=== PATIENT | male | born 1950 | race Caucasian/White ===

== ENCOUNTER 2018-11-16 06:00 | Outpatient (RCR) | payer MEDICARE, OTHER, SELFPAY | END 2018-12-15 | LOC: SPT 06:00 | PROVIDERS: Family Provider Family Medicine; Visit Provider Student in an Organized Health Care Education/Training Program | DX: Z47.1 Aftercare following joint replacement surgery (principal); Z96.653 Presence of artificial knee joint, bilateral | CPT/HCPCS: 97110 ×12; 97124 ==

== ENCOUNTER 2019-06-08 17:39 | Outpatient (CLI) | payer MEDICARE, OTHER, SELFPAY ==
[2019-06-08 18:47] LABS: Basophils % 0.5 %; Eosinophils # 0.1 10^3/uL (0.0-0.8); Eosinophils % 1.3 %; Hemoglobin 12.2 g/dL (11.7-16.6); Lymphocytes # 0.5 10^3/uL (0.8-4.8); Lymphocytes % 5.8 %; Mean Corpuscular Hemoglobin 32.4 pg (28.0-34.0); Mean Corpuscular Volume 98.1 fL (80-94); Mean Platelet Volume 11.6 fL (7.4-10.4); Monocytes % 12.5 %; Neutrophils # 5.8 10^3/uL (1.8-7.7); Neutrophils % 73.4 %; Nucleated Red Blood Cells % 0 %; Platelet Count 209 10^3/cmm (130-400); Red Blood Count 3.77 10^6/uL (4.1-5.3); Red Cell Distribution Width 14.1 % (12.1-15.1); White Blood Count 7.9 10^3/uL (4.0-10.0)
[2019-06-08 19:21] LABS: Albumin Level 3.8 g/dL (3.5-5.2); Blood Urea Nitrogen 14 mg/dL (8-23); Calcium 9.8 mg/dL (8.5-10.5); Carbon Dioxide 24 mmol/L (22-29); Chloride 102 mmol/L (98-107); Glomerular Filtration Rate 83.7 mL/min (90-130); Glucose 61 mg/dL (65-115); Magnesium 1.8 mg/dL (1.7-2.3); Sodium 137 mmol/L (136-145)
[2019-06-08 20:19] LABS: Slide Review Slide Review Perform
[2019-06-08 20:22] LABS: Absolute Eosinophils 0.2 10^3/cmm (0.0-0.7); Absolute Segmented Neutrophil 5.9 10/cmm (1.6-7.1); Band Neutrophils Absolute 0.2 10^3/cmm (0.0-1.2); Basophils Absolute 0.1 10^3/cmm (0.0-0.2); Eosinophils 3 %; Lymphocytes 9 %; Monocytes Absolute 0.5 10^3/cmm (0.1-0.6); Segmented Neutrophils 75 %; Total Cells Counted 100 (0-100)
[2019-06-08 20:23] LABS: Anisocytosis 1+; Macrocytosis Trace; Platelet Estimate Normal (Normal); Poikilocytosis 1+
== END 2019-06-08 17:40 | disposition home or self-care (01) ==
LOC: LAB 17:50
PROVIDERS: Family Provider Family Medicine; PCP Family Medicine; Visit Provider Nurse Practitioner Acute Care
DX: N18.4 Chronic kidney disease, stage 4 (severe) (principal)
CPT/HCPCS: 80069; 80197; 83735; 85007; 85025

== ENCOUNTER 2019-06-11 14:23 | Outpatient (CLI) | payer MEDICARE, OTHER, SELFPAY ==
[2019-06-11 15:19] LABS: Albumin Level 3.9 g/dL (3.5-5.2); Anion Gap 22.6 (5-19); Blood Urea Nitrogen 14 mg/dL (8-23); Calcium 9.8 mg/dL (8.5-10.5); Carbon Dioxide 22 mmol/L (22-29); Chloride 100 mmol/L (98-107); Glomerular Filtration Rate 66.4 mL/min (90-130); Glucose 56 mg/dL (65-115); Magnesium 1.7 mg/dL (1.7-2.3); Phosphorus 3.3 mg/dL (2.5-4.5); Potassium 5.6 mmol/L (3.5-5.1); Sodium 139 mmol/L (136-145)
== END 2019-06-11 14:24 | disposition home or self-care (01) ==
LOC: LAB 14:24
PROVIDERS: Family Provider Family Medicine; PCP Family Medicine; Visit Provider Family Medicine
DX: Z94.0 Kidney transplant status (principal); N18.4 Chronic kidney disease, stage 4 (severe)
CPT/HCPCS: 80069; 83735; 85025

== ENCOUNTER 2019-06-18 10:11 | Outpatient (CLI) | payer MEDICARE, OTHER, SELFPAY ==
[2019-06-18 11:10] LABS: Albumin Level 4.1 g/dL (3.5-5.2); Anion Gap 13.9 (5-19); Blood Urea Nitrogen 15 mg/dL (8-23); Calcium 10.2 mg/dL (8.5-10.5); Carbon Dioxide 26 mmol/L (22-29); Chloride 104 mmol/L (98-107); Glomerular Filtration Rate 74.1 mL/min (90-130); Glucose 99 mg/dL (65-115); Magnesium 1.9 mg/dL (1.7-2.3); Phosphorus 1.5 mg/dL (2.5-4.5); Potassium 4.9 mmol/L (3.5-5.1); Sodium 139 mmol/L (136-145)
[2019-06-18 17:42] LABS: Basophils % 0.3 %; Eosinophils % 0.1 %; Hematocrit 36.9 % (42.0-52.0); Lymphocytes # 0.2 10^3/uL (0.8-4.8); Lymphocytes % 1.9 %; Mean Corpuscular HGB Conc 32.5 g/dL (30.0-36.0); Mean Corpuscular Hemoglobin 32.4 pg (28.0-34.0); Mean Corpuscular Volume 99.7 fL (80-94); Mean Platelet Volume 10.5 fL (7.4-10.4); Monocytes # 0.4 10^3/uL (0.2-0.9); Monocytes % 3.3 %; Neutrophils # 11.7 10^3/uL (1.8-7.7); Nucleated Red Blood Cells % 0 %; Platelet Count 246 10^3/cmm (130-400); White Blood Count 12.6 10^3/uL (4.0-10.0)
== END 2019-06-18 10:12 | disposition home or self-care (01) ==
LOC: LAB 10:15
PROVIDERS: Family Provider Family Medicine; PCP Family Medicine; Visit Provider Transplant Surgery
DX: Z94.0 Kidney transplant status (principal)
CPT/HCPCS: 80069; 80197; 83735; 85025

== ENCOUNTER 2019-06-22 12:19 | Outpatient (CLI) | payer MEDICARE, OTHER, SELFPAY ==
[2019-06-22 12:36] LABS: Basophils % 0.6 %; Eosinophils # 0.1 10^3/uL (0.0-0.8); Eosinophils % 1.2 %; Hematocrit 39.6 % (42.0-52.0); Hemoglobin 12.7 g/dL (11.7-16.6); Lymphocytes # 0.7 10^3/uL (0.8-4.8); Lymphocytes % 10.1 %; Mean Corpuscular HGB Conc 32.1 g/dL (30.0-36.0); Mean Corpuscular Hemoglobin 32.9 pg (28.0-34.0); Mean Corpuscular Volume 102.6 fL (80-94); Mean Platelet Volume 10.6 fL (7.4-10.4); Monocytes # 0.7 10^3/uL (0.2-0.9); Neutrophils # 5.1 10^3/uL (1.8-7.7); Neutrophils % 75.5 %; Nucleated Red Blood Cells % 0 %; Platelet Count 218 10^3/cmm (130-400); Red Blood Count 3.86 10^6/uL (4.1-5.3); Red Cell Distribution Width 15.7 % (12.1-15.1); White Blood Count 6.7 10^3/uL (4.0-10.0)
[2019-06-22 12:59] LABS: Anion Gap 15.7 (5-19); Blood Urea Nitrogen 16 mg/dL (8-23); Calcium 10.2 mg/dL (8.5-10.5); Carbon Dioxide 25 mmol/L (22-29); Chloride 104 mmol/L (98-107); Glucose 88 mg/dL (65-115); Magnesium 1.9 mg/dL (1.7-2.3); Phosphorus 1.6 mg/dL (2.5-4.5); Potassium 4.7 mmol/L (3.5-5.1); Sodium 140 mmol/L (136-145)
== END 2019-06-22 12:20 | disposition home or self-care (01) ==
LOC: LAB 12:23
PROVIDERS: Family Provider Family Medicine; PCP Family Medicine; Visit Provider Family Medicine
DX: Z79.899 Other long term (current) drug therapy (principal)
CPT/HCPCS: 80069; 80197; 83735; 85025

== ENCOUNTER → 2019-09-29 09:05 | Outpatient (BNVA) | payer MEDICARE, OTHER, SELFPAY | PROVIDERS: Family Provider Family Medicine; PCP Family Medicine; Visit Provider Dermatology | DX: L82.1 Other seborrheic keratosis (principal); S90.229A Contusion of unspecified lesser toe(s) with damage to nail, initial encounter; X58.XXXA Exposure to other specified factors, initial encounter; L59.0 Erythema ab igne [dermatitis ab igne]; D22.9 Melanocytic nevi, unspecified; L57.0 Actinic keratosis; Z92.25 Personal history of immunosuppression therapy; Z12.83 Encounter for screening for malignant neoplasm of skin | CPT/HCPCS: 17000; 17003; 99203 ==

== ENCOUNTER 2019-12-14 08:28 | Outpatient (RCR) | payer MEDICARE, OTHER, SELFPAY ==
[2019-12-14 09:53] LABS: Basophils % 0.7 %; Eosinophils # 0.1 10^3/uL (0.0-0.8); Eosinophils % 1.3 %; Hematocrit 47.7 % (42.0-52.0); Hemoglobin 15.4 g/dL (11.7-16.6); Lymphocytes # 0.9 10^3/uL (0.8-4.8); Lymphocytes % 16.8 %; Mean Corpuscular HGB Conc 32.3 g/dL (30.0-36.0); Mean Corpuscular Hemoglobin 31.8 pg (28.0-34.0); Mean Corpuscular Volume 98.4 fL (80-94); Mean Platelet Volume 10.1 fL (7.4-10.4); Neutrophils # 3.39 10^3/uL (1.8-7.7); Neutrophils % 62.5 %; Nucleated Red Blood Cells % 0 %; Platelet Count 209 10^3/cmm (130-400); Red Blood Count 4.85 10^6/uL (4.1-5.3); Red Cell Distribution Width 12.8 % (12.1-15.1); White Blood Count 5.4 10^3/uL (4.0-10.0)
[2019-12-14 10:31] LABS: Alanine Aminotransferase 31 U/L (0-41); Albumin Level 3.9 g/dL (3.5-5.2); Alkaline Phosphatase 113 IU/L (40-130); Anion Gap 12.2 (5-19); Aspartate Amino Transferase 38 U/L (0-40); Blood Urea Nitrogen 21 mg/dL (8-23); Calcium 9.7 mg/dL (8.5-10.5); Carbon Dioxide 24 mmol/L (22-29); Chloride 107 mmol/L (98-107); Cholesterol 139 mg/dL (0-200); Globulin 1.9 g/dL (1.3-4.6); Glomerular Filtration Rate 95.8 mL/min (90-130); Glucose 104 mg/dL (65-115); HDL Cholesterol 48 mg/dL (60-100); LDL Cholesterol Calculated 69 mg/dL (50-129); LDL HDL Ratio 1.44 RATIO (0.00-3.22); Magnesium 1.8 mg/dL (1.7-2.3); Osmolality Calculated 291 mOsm/kg (285-295); Phosphorus 2.9 mg/dL (2.5-4.5); Potassium 4.2 mmol/L (3.5-5.1); Sodium 139 mmol/L (136-145); Total Bilirubin 0.4 mg/dL (0.15-1.2); Total Protein 5.8 g/dL (6.6-8.7); Triglycerides 111 mg/dL (0-150)
[2019-12-17 09:47] LABS: BK VIRUS DNA, QN PCR DETECTED <500 copies/mL; SOURCE PLASMA
== END 2019-12-16 23:59 | disposition home or self-care (01) ==
LOC: LAB 08:28
PROVIDERS: PCP Family Medicine; Visit Provider Family Medicine
DX: Z94.0 Kidney transplant status (principal); Z79.899 Other long term (current) drug therapy; E78.5 Hyperlipidemia, unspecified
CPT/HCPCS: 36415; 80053; 80061; 80069; 80197; 83735; 85025; 87798

== ENCOUNTER 2020-01-11 08:15 | Outpatient (RCR) | payer MEDICARE, OTHER, SELFPAY ==
[2019-12-28 09:15] LABS: Basophils % 0.2 %; Eosinophils # 0.1 10^3/uL (0.0-0.8); Eosinophils % 0.7 %; Hematocrit 48.7 % (42.0-52.0); Hemoglobin 15.6 g/dL (11.7-16.6); Lymphocytes # 0.9 10^3/uL (0.8-4.8); Lymphocytes % 10.1 %; Mean Platelet Volume 10.1 fL (7.4-10.4); Monocytes # 1.1 10^3/uL (0.2-0.9); Neutrophils # 6.97 10^3/uL (1.8-7.7); Neutrophils % 76.6 %; Nucleated Red Blood Cells % 0 %; Platelet Count 215 10^3/cmm (130-400); Red Blood Count 4.87 10^6/uL (4.1-5.3); Red Cell Distribution Width 12.9 % (12.1-15.1); White Blood Count 9.1 10^3/uL (4.0-10.0)
[2019-12-28 09:35] LABS: Albumin Level 3.8 g/dL (3.5-5.2); Anion Gap 14.6 (5-19); Blood Urea Nitrogen 23 mg/dL (8-23); Carbon Dioxide 25 mmol/L (22-29); Chloride 105 mmol/L (98-107); Glomerular Filtration Rate 83.7 mL/min (90-130); Glucose 106 mg/dL (65-115); Magnesium 1.8 mg/dL (1.7-2.3); Phosphorus 2.6 mg/dL (2.5-4.5); Potassium 4.6 mmol/L (3.5-5.1); Sodium 140 mmol/L (136-145)
[2020-01-11 08:53] LABS: Basophils % 0.4 %; Eosinophils # 0.1 10^3/uL (0.0-0.8); Eosinophils % 1.2 %; Hematocrit 50.3 % (42.0-52.0); Hemoglobin 16.2 g/dL (11.7-16.6); Lymphocytes % 14.7 %; Mean Corpuscular HGB Conc 32.2 g/dL (30.0-36.0); Mean Corpuscular Hemoglobin 31.8 pg (28.0-34.0); Mean Corpuscular Volume 98.6 fL (80-94); Mean Platelet Volume 11.6 fL (7.4-10.4); Monocytes # 0.8 10^3/uL (0.2-0.9); Neutrophils # 4.81 10^3/uL (1.8-7.7); Neutrophils % 71.4 %; Nucleated Red Blood Cells % 0 %; Platelet Count 155 10^3/cmm (130-400); Red Cell Distribution Width 12.4 % (12.1-15.1); White Blood Count 6.7 10^3/uL (4.0-10.0)
[2020-01-11 09:11] LABS: Albumin Level 3.9 g/dL (3.5-5.2); Anion Gap 9.4 (5-19); Blood Urea Nitrogen 16 mg/dL (8-23); Calcium 9.9 mg/dL (8.5-10.5); Carbon Dioxide 29 mmol/L (22-29); Chloride 105 mmol/L (98-107); Glomerular Filtration Rate 95.8 mL/min (90-130); Glucose 104 mg/dL (65-115); Magnesium 1.9 mg/dL (1.7-2.3); Phosphorus 2.5 mg/dL (2.5-4.5); Potassium 4.4 mmol/L (3.5-5.1); Sodium 139 mmol/L (136-145)
[2020-01-16 00:33] LABS: BK VIRUS DNA, QN PCR DETECTED <500 copies/mL; SOURCE PLASMA
== END 2020-01-16 23:59 | disposition home or self-care (01) ==
LOC: LAB 08:15
PROVIDERS: PCP Family Medicine; Visit Provider Internal Medicine Nephrology
DX: Z94.0 Kidney transplant status (principal); Z79.899 Other long term (current) drug therapy; Z48.22 Encounter for aftercare following kidney transplant
CPT/HCPCS: 36415; 80069; 80197; 83735; 85025; 87798

== ENCOUNTER 2020-02-08 08:20 | Outpatient (RCR) | payer MEDICARE, OTHER, SELFPAY ==
[2020-01-25 08:39] LABS: Basophils % 0.4 %; Eosinophils # 0.1 10^3/uL (0.0-0.8); Eosinophils % 1.1 %; Hematocrit 48.6 % (42.0-52.0); Hemoglobin 15.3 g/dL (11.7-16.6); Lymphocytes # 0.9 10^3/uL (0.8-4.8); Lymphocytes % 16.1 %; Mean Corpuscular HGB Conc 31.5 g/dL (30.0-36.0); Mean Corpuscular Hemoglobin 31.3 pg (28.0-34.0); Mean Corpuscular Volume 99.4 fL (80-94); Mean Platelet Volume 9.5 fL (7.4-10.4); Neutrophils # 3.66 10^3/uL (1.8-7.7); Neutrophils % 64.7 %; Nucleated Red Blood Cells % 0 %; Platelet Count 231 10^3/cmm (130-400); Red Blood Count 4.89 10^6/uL (4.1-5.3); Red Cell Distribution Width 12.5 % (12.1-15.1); White Blood Count 5.7 10^3/uL (4.0-10.0)
[2020-01-25 09:14] LABS: Albumin Level 3.9 g/dL (3.5-5.2); Anion Gap 12.5 (5-19); Blood Urea Nitrogen 30 mg/dL (8-23); Calcium 9.2 mg/dL (8.5-10.5); Carbon Dioxide 25 mmol/L (22-29); Chloride 110 mmol/L (98-107); Glomerular Filtration Rate 111.8 mL/min (90-130); Glucose 90 mg/dL (65-115); Magnesium 1.8 mg/dL (1.7-2.3); Potassium 4.5 mmol/L (3.5-5.1); Sodium 143 mmol/L (136-145)
[2020-02-08 08:56] LABS: Basophils % 0.5 %; Eosinophils # 0.1 10^3/uL (0.0-0.8); Eosinophils % 1.4 %; Hematocrit 50.6 % (42.0-52.0); Hemoglobin 16.2 g/dL (11.7-16.6); Lymphocytes % 17.1 %; Mean Corpuscular Hemoglobin 31.3 pg (28.0-34.0); Mean Corpuscular Volume 97.9 fL (80-94); Mean Platelet Volume 9.7 fL (7.4-10.4); Monocytes # 0.9 10^3/uL (0.2-0.9); Monocytes % 16.5 %; Neutrophils # 3.61 10^3/uL (1.8-7.7); Neutrophils % 63.6 %; Nucleated Red Blood Cells % 0 %; Platelet Count 228 10^3/cmm (130-400); Red Blood Count 5.17 10^6/uL (4.1-5.3); Red Cell Distribution Width 12.5 % (12.1-15.1); White Blood Count 5.7 10^3/uL (4.0-10.0)
[2020-02-08 08:58] LABS: Albumin Level 3.9 g/dL (3.5-5.2); Anion Gap 14.4 (5-19); Blood Urea Nitrogen 17 mg/dL (8-23); Calcium 9.6 mg/dL (8.5-10.5); Carbon Dioxide 27 mmol/L (22-29); Chloride 105 mmol/L (98-107); Glomerular Filtration Rate 95.8 mL/min (90-130); Glucose 94 mg/dL (65-115); Magnesium 1.7 mg/dL (1.7-2.3); Phosphorus 3.2 mg/dL (2.5-4.5); Potassium 4.4 mmol/L (3.5-5.1); Sodium 142 mmol/L (136-145)
[2020-02-11 13:03] LABS: BK VIRUS DNA, QN PCR NO DNA DETECTED copies/mL; SOURCE PLASMA
== END 2020-02-15 23:59 | disposition home or self-care (01) ==
LOC: LAB 08:20
PROVIDERS: PCP Family Medicine; Visit Provider Internal Medicine Nephrology
DX: N18.9 Chronic kidney disease, unspecified (principal); M10.9 Gout, unspecified; Z94.0 Kidney transplant status; Z79.899 Other long term (current) drug therapy
CPT/HCPCS: 36415; 80069; 80197; 83735; 85025; 87798

== ENCOUNTER 2020-03-07 08:10 | Outpatient (RCR) | payer MEDICARE, OTHER, SELFPAY ==
[2020-02-22 08:55] LABS: Basophils % 0.4 %; Eosinophils # 0.1 10^3/uL (0.0-0.8); Eosinophils % 0.9 %; Hematocrit 48.2 % (42.0-52.0); Hemoglobin 15.4 g/dL (11.7-16.6); Lymphocytes # 0.9 10^3/uL (0.8-4.8); Lymphocytes % 16.6 %; Mean Corpuscular Hemoglobin 31.2 pg (28.0-34.0); Mean Corpuscular Volume 97.6 fL (80-94); Mean Platelet Volume 9.7 fL (7.4-10.4); Monocytes % 18.2 %; Neutrophils # 3.42 10^3/uL (1.8-7.7); Nucleated Red Blood Cells % 0 %; Platelet Count 218 10^3/cmm (130-400); Red Blood Count 4.94 10^6/uL (4.1-5.3); Red Cell Distribution Width 12.7 % (12.1-15.1); White Blood Count 5.4 10^3/uL (4.0-10.0)
[2020-02-22 09:17] LABS: Carbon Dioxide 27 mmol/L (22-29); Chloride 105 mmol/L (98-107); Potassium 4.6 mmol/L (3.5-5.1); Sodium 140 mmol/L (136-145)
[2020-02-22 09:18] LABS: Albumin Level 3.9 g/dL (3.5-5.2); Anion Gap 12.6 (5-19); Blood Urea Nitrogen 20 mg/dL (8-23); Calcium 9.3 mg/dL (8.5-10.5); Glomerular Filtration Rate 95.8 mL/min (90-130); Glucose 101 mg/dL (65-115); Magnesium 1.7 mg/dL (1.7-2.3); Phosphorus 2.3 mg/dL (2.5-4.5)
[2020-03-07 09:45] LABS: Basophils % 0.5 %; Eosinophils # 0.1 10^3/uL (0.0-0.8); Eosinophils % 1.1 %; Hemoglobin 15.7 g/dL (11.7-16.6); Lymphocytes # 0.9 10^3/uL (0.8-4.8); Lymphocytes % 14.5 %; Mean Corpuscular Hemoglobin 31.4 pg (28.0-34.0); Mean Platelet Volume 10.1 fL (7.4-10.4); Monocytes % 15.3 %; Neutrophils # 4.32 10^3/uL (1.8-7.7); Neutrophils % 67.2 %; Nucleated Red Blood Cells % 0 %; Platelet Count 221 10^3/cmm (130-400); Red Cell Distribution Width 12.6 % (12.1-15.1); White Blood Count 6.4 10^3/uL (4.0-10.0)
[2020-03-07 10:16] LABS: Alanine Aminotransferase 37 U/L (0-41); Albumin Level 3.8 g/dL (3.5-5.2); Alkaline Phosphatase 115 IU/L (40-130); Anion Gap 12.2 (5-19); Aspartate Amino Transferase 30 U/L (0-40); Blood Urea Nitrogen 20 mg/dL (8-23); Calcium 9.4 mg/dL (8.5-10.5); Carbon Dioxide 27 mmol/L (22-29); Chloride 105 mmol/L (98-107); Chol HDL Ratio 2.57 mg/dL (1.0-5.00); Cholesterol 131 mg/dL (0-200); Globulin 1.7 g/dL (1.3-4.6); Glomerular Filtration Rate 83.4 mL/min (90-130); Glucose 82 mg/dL (65-115); HDL Cholesterol 51 mg/dL (60-100); LDL Cholesterol Calculated 58 mg/dL (50-129); LDL HDL Ratio 1.14 RATIO (0.00-3.22); Magnesium 1.6 mg/dL (1.7-2.3); Osmolality Calculated 292 mOsm/kg (285-295); Phosphorus 3.3 mg/dL (2.5-4.5); Potassium 4.2 mmol/L (3.5-5.1); Sodium 140 mmol/L (136-145); Total Bilirubin 0.3 mg/dL (0.15-1.2); Total Protein 5.5 g/dL (6.6-8.7); Triglycerides 111 mg/dL (0-150)
[2020-03-11 11:13] LABS: BK VIRUS DNA, QN PCR NO DNA DETECTED copies/mL; SOURCE BLOOD
== END 2020-03-17 23:59 | disposition home or self-care (01) ==
LOC: LAB 08:10
PROVIDERS: Dermatology; PCP Family Medicine; Visit Provider Internal Medicine Nephrology
DX: Z94.0 Kidney transplant status (principal); E78.5 Hyperlipidemia, unspecified; Z79.899 Other long term (current) drug therapy
CPT/HCPCS: 80053; 80061; 80069; 80197; 83735; 85025; 87798

== ENCOUNTER 2020-04-04 09:28 | Outpatient (RCR) | payer MEDICARE, OTHER, SELFPAY ==
[2020-03-21 10:02] LABS: Basophils % 0.6 %; Eosinophils # 0.1 10^3/uL (0.0-0.8); Hematocrit 51.1 % (42.0-52.0); Hemoglobin 16.2 g/dL (11.7-16.6); Lymphocytes # 0.9 10^3/uL (0.8-4.8); Lymphocytes % 18.4 %; Mean Corpuscular HGB Conc 31.7 g/dL (30.0-36.0); Mean Corpuscular Hemoglobin 31.5 pg (28.0-34.0); Mean Corpuscular Volume 99.2 fL (80-94); Mean Platelet Volume 9.9 fL (7.4-10.4); Monocytes % 19.9 %; Neutrophils # 2.88 10^3/uL (1.8-7.7); Neutrophils % 59.1 %; Nucleated Red Blood Cells % 0 %; Platelet Count 225 10^3/cmm (130-400); Red Blood Count 5.15 10^6/uL (4.1-5.3); Red Cell Distribution Width 12.4 % (12.1-15.1); White Blood Count 4.9 10^3/uL (4.0-10.0)
[2020-03-21 11:14] LABS: Alanine Aminotransferase 37 U/L (0-41); Albumin Level 3.9 g/dL (3.5-5.2); Alkaline Phosphatase 115 IU/L (40-130); Anion Gap 13.9 (5-19); Aspartate Amino Transferase 33 U/L (0-40); Blood Urea Nitrogen 30 mg/dL (8-23); Calcium 9.9 mg/dL (8.5-10.5); Carbon Dioxide 28 mmol/L (22-29); Chloride 106 mmol/L (98-107); Cholesterol 139 mg/dL (0-200); Globulin 2.1 g/dL (1.3-4.6); Glomerular Filtration Rate 73.9 mL/min (90-130); Glucose 88 mg/dL (65-115); HDL Cholesterol 48 mg/dL (60-100); LDL Cholesterol Calculated 69 mg/dL (50-129); LDL HDL Ratio 1.44 RATIO (0.00-3.22); Magnesium 1.7 mg/dL (1.7-2.3); Osmolality Calculated 302 mOsm/kg (285-295); Phosphorus 3.8 mg/dL (2.5-4.5); Potassium 4.9 mmol/L (3.5-5.1); Sodium 143 mmol/L (136-145); Total Bilirubin 0.4 mg/dL (0.15-1.2); Triglycerides 108 mg/dL (0-150)
[2020-04-04 10:18] LABS: Basophils % 0.4 %; Eosinophils # 0.1 10^3/uL (0.0-0.8); Eosinophils % 0.7 %; Hematocrit 49.9 % (42.0-52.0); Hemoglobin 16.1 g/dL (11.7-16.6); Lymphocytes # 0.9 10^3/uL (0.8-4.8); Lymphocytes % 9.5 %; Mean Corpuscular HGB Conc 32.3 g/dL (30.0-36.0); Mean Corpuscular Hemoglobin 31.6 pg (28.0-34.0); Mean Platelet Volume 10.1 fL (7.4-10.4); Monocytes # 1.2 10^3/uL (0.2-0.9); Neutrophils # 7.24 10^3/uL (1.8-7.7); Neutrophils % 76.1 %; Nucleated Red Blood Cells % 0 %; Platelet Count 217 10^3/cmm (130-400); Red Blood Count 5.09 10^6/uL (4.1-5.3); Red Cell Distribution Width 12.3 % (12.1-15.1); White Blood Count 9.5 10^3/uL (4.0-10.0)
[2020-04-04 11:12] LABS: Alanine Aminotransferase 31 U/L (0-41); Albumin Level 3.9 g/dL (3.5-5.2); Alkaline Phosphatase 110 IU/L (40-130); Anion Gap 11.4 (5-19); Aspartate Amino Transferase 32 U/L (0-40); Blood Urea Nitrogen 17 mg/dL (8-23); Calcium 9.7 mg/dL (8.5-10.5); Carbon Dioxide 30 mmol/L (22-29); Chloride 100 mmol/L (98-107); Globulin 1.9 g/dL (1.3-4.6); Glomerular Filtration Rate 73.9 mL/min (90-130); Glucose 89 mg/dL (65-115); Magnesium 1.7 mg/dL (1.7-2.3); Osmolality Calculated 285 mOsm/kg (285-295); Phosphorus 2.6 mg/dL (2.5-4.5); Potassium 4.4 mmol/L (3.5-5.1); Sodium 137 mmol/L (136-145); Total Bilirubin 0.6 mg/dL (0.15-1.2); Total Protein 5.8 g/dL (6.6-8.7)
== END 2020-04-17 23:59 | disposition home or self-care (01) ==
LOC: LAB 09:28
PROVIDERS: Internal Medicine Nephrology; PCP Family Medicine; Visit Provider Internal Medicine Nephrology
DX: E78.5 Hyperlipidemia, unspecified (principal); I10 Essential (primary) hypertension; Z94.0 Kidney transplant status; Z79.899 Other long term (current) drug therapy
CPT/HCPCS: 36415; 80053; 80061; 80069; 80197; 83735; 85025

== ENCOUNTER 2020-05-10 07:15 | Outpatient (RCR) | payer MEDICARE, OTHER, SELFPAY ==
[2020-04-18 09:12] LABS: Basophils % 0.8 %; Eosinophils # 0.1 10^3/uL (0.0-0.8); Eosinophils % 1.8 %; Hematocrit 48.3 % (42.0-52.0); Hemoglobin 15.9 g/dL (11.7-16.6); Lymphocytes # 0.9 10^3/uL (0.8-4.8); Lymphocytes % 17.2 %; Mean Corpuscular HGB Conc 32.9 g/dL (30.0-36.0); Mean Corpuscular Hemoglobin 32.3 pg (28.0-34.0); Mean Corpuscular Volume 98.2 fL (80-94); Monocytes # 0.8 10^3/uL (0.2-0.9); Monocytes % 16.2 %; Neutrophils # 3.24 10^3/uL (1.8-7.7); Neutrophils % 63.4 %; Nucleated Red Blood Cells % 0 %; Platelet Count 225 10^3/cmm (130-400); Red Blood Count 4.92 10^6/uL (4.1-5.3); Red Cell Distribution Width 12.8 % (12.1-15.1); White Blood Count 5.1 10^3/uL (4.0-10.0)
[2020-04-18 09:30] LABS: Albumin Level 3.9 g/dL (3.5-5.2); Anion Gap 9.7 (5-19); Blood Urea Nitrogen 12 mg/dL (8-23); Calcium 9.7 mg/dL (8.5-10.5); Carbon Dioxide 27 mmol/L (22-29); Chloride 108 mmol/L (98-107); Glomerular Filtration Rate 73.9 mL/min (90-130); Glucose 92 mg/dL (65-115); Magnesium 1.8 mg/dL (1.7-2.3); Potassium 4.7 mmol/L (3.5-5.1); Sodium 140 mmol/L (136-145)
[2020-04-18 10:20] LABS: Add Urine Culture? No; Bacteria Urine TRACE /hpf; Bilirubin Urine Neg (Negative); Blood Urine Neg (Negative); Glucose Urine UA Norm (Normal); Ketones Urine Negative (Negative); Leukocyte Esterase Urine Negative (Negative); Nitrate Urine Negative (Negative); Protein Urine Neg (Negative); Urine Appearance Clear (CLEAR); Urine Color Yellow (Yellow); Urobilinogen Urine Norm (Negative); pH Urine 5 (5-7)
[2020-04-22 15:38] LABS: BK VIRUS DNA, QN PCR NO DNA DETECTED copies/mL; SOURCE WHOLE BLOOD
[2020-05-10 11:04] LABS: Basophils % 0.5 %; Eosinophils # 0.1 10^3/uL (0.0-0.8); Eosinophils % 1.8 %; Hematocrit 52.3 % (42.0-52.0); Hemoglobin 16.7 g/dL (11.7-16.6); Lymphocytes # 0.9 10^3/uL (0.8-4.8); Lymphocytes % 16.7 %; Mean Corpuscular HGB Conc 31.9 g/dL (30.0-36.0); Mean Corpuscular Hemoglobin 32.2 pg (28.0-34.0); Mean Platelet Volume 10.3 fL (7.4-10.4); Monocytes # 0.9 10^3/uL (0.2-0.9); Monocytes % 15.8 %; Neutrophils # 3.62 10^3/uL (1.8-7.7); Neutrophils % 64.3 %; Nucleated Red Blood Cells % 0 %; Platelet Count 231 10^3/cmm (130-400); Red Blood Count 5.18 10^6/uL (4.1-5.3); Red Cell Distribution Width 13.2 % (12.1-15.1); White Blood Count 5.6 10^3/uL (4.0-10.0)
[2020-05-10 11:12] LABS: Bilirubin Urine Neg (Negative); Blood Urine Neg (Negative); Glucose Urine UA Norm (Normal); Ketones Urine Negative (Negative); Leukocyte Esterase Urine Negative (Negative); Nitrate Urine Negative (Negative); Protein Urine Neg (Negative); Specific Gravity, Urine 1.015 (1.005-1.030); Urine Appearance Clear (CLEAR); Urine Color Straw (Yellow); Urobilinogen Urine Norm (Negative); pH Urine 6.5 (5-7)
[2020-05-10 11:26] LABS: Add Urine Culture? No; Bacteria Urine TRACE /hpf; Squamous Epithelial Cell Urine 0-4 /hpf (0-5)
[2020-05-10 11:37] LABS: Anion Gap 11.9 (5-19); Blood Urea Nitrogen 24 mg/dL (8-23); Calcium 9.8 mg/dL (8.5-10.5); Carbon Dioxide 28 mmol/L (22-29); Chloride 106 mmol/L (98-107); Glomerular Filtration Rate 83.4 mL/min (90-130); Glucose 79 mg/dL (65-115); Magnesium 1.6 mg/dL (1.7-2.3); Phosphorus 3.2 mg/dL (2.5-4.5); Potassium 4.9 mmol/L (3.5-5.1); Sodium 141 mmol/L (136-145)
== END 2020-05-15 23:59 | disposition home or self-care (01) ==
LOC: LAB 07:15
PROVIDERS: PCP Family Medicine; Visit Provider Internal Medicine Nephrology
DX: E78.5 Hyperlipidemia, unspecified (principal); I10 Essential (primary) hypertension; Z94.0 Kidney transplant status; Z79.899 Other long term (current) drug therapy
CPT/HCPCS: 80069; 80197; 81001; 83735; 85025; 87086; 87798

== ENCOUNTER 2020-06-07 07:00 | Outpatient (RCR) | payer MEDICARE, OTHER, SELFPAY ==
[2020-05-24 10:01] LABS: Basophils # 0.1 10^3/uL (0.0-0.1); Basophils % 0.9 %; Eosinophils # 0.1 10^3/uL (0.0-0.8); Eosinophils % 1.3 %; Hematocrit 50.7 % (42.0-52.0); Hemoglobin 16.5 g/dL (11.7-16.6); Lymphocytes % 18.9 %; Mean Corpuscular HGB Conc 32.5 g/dL (30.0-36.0); Mean Corpuscular Hemoglobin 32.4 pg (28.0-34.0); Mean Corpuscular Volume 99.6 fL (80-94); Mean Platelet Volume 10.8 fL (7.4-10.4); Monocytes # 0.9 10^3/uL (0.2-0.9); Monocytes % 16.3 %; Neutrophils # 3.36 10^3/uL (1.8-7.7); Neutrophils % 61.5 %; Nucleated Red Blood Cells % 0 %; Platelet Count 204 10^3/cmm (130-400); Red Blood Count 5.09 10^6/uL (4.1-5.3); Red Cell Distribution Width 12.9 % (12.1-15.1); White Blood Count 5.5 10^3/uL (4.0-10.0)
[2020-05-24 10:28] LABS: Add Urine Culture? No; Bacteria Urine TRACE /hpf; Bilirubin Urine Neg (Negative); Blood Urine Neg (Negative); Glucose Urine UA Norm (Normal); Ketones Urine Negative (Negative); Leukocyte Esterase Urine Negative (Negative); Mucus Urine 1+ /hpf; Nitrate Urine Negative (Negative); Protein Urine Neg (Negative); Specific Gravity, Urine 1.015 (1.005-1.030); Squamous Epithelial Cell Urine RARE /hpf (0-5); Urine Appearance Clear (CLEAR); Urine Color Yellow (Yellow); Urobilinogen Urine Norm (Negative); pH Urine 5 (5-7)
[2020-05-24 10:31] LABS: Albumin Level 3.9 g/dL (3.5-5.2); Anion Gap 12.8 (5-19); Blood Urea Nitrogen 27 mg/dL (8-23); Calcium 9.8 mg/dL (8.5-10.5); Carbon Dioxide 26 mmol/L (22-29); Chloride 107 mmol/L (98-107); Glomerular Filtration Rate 73.9 mL/min (90-130); Glucose 83 mg/dL (65-115); Magnesium 1.6 mg/dL (1.7-2.3); Potassium 4.8 mmol/L (3.5-5.1); Sodium 141 mmol/L (136-145)
[2020-05-27 10:28] LABS: BK VIRUS DNA, QN PCR NO DNA DETECTED copies/mL; SOURCE PLASMA
[2020-06-07 10:05] LABS: Basophils % 0.5 %; Eosinophils # 0.1 10^3/uL (0.0-0.8); Eosinophils % 1.6 %; Hematocrit 50.1 % (42.0-52.0); Hemoglobin 16.3 g/dL (11.7-16.6); Lymphocytes # 0.8 10^3/uL (0.8-4.8); Lymphocytes % 13.1 %; Mean Corpuscular HGB Conc 32.5 g/dL (30.0-36.0); Mean Corpuscular Hemoglobin 32.3 pg (28.0-34.0); Mean Corpuscular Volume 99.4 fL (80-94); Mean Platelet Volume 10.3 fL (7.4-10.4); Monocytes % 17.2 %; Neutrophils # 3.83 10^3/uL (1.8-7.7); Neutrophils % 66.7 %; Nucleated Red Blood Cells % 0 %; Platelet Count 224 10^3/cmm (130-400); Red Blood Count 5.04 10^6/uL (4.1-5.3); Red Cell Distribution Width 13.1 % (12.1-15.1); White Blood Count 5.7 10^3/uL (4.0-10.0)
[2020-06-07 10:28] LABS: Alanine Aminotransferase 30 U/L (0-41); Albumin Level 3.6 g/dL (3.5-5.2); Alkaline Phosphatase 134 IU/L (40-130); Aspartate Amino Transferase 32 U/L (0-40); Blood Urea Nitrogen 27 mg/dL (8-23); Calcium 8.9 mg/dL (8.5-10.5); Carbon Dioxide 25 mmol/L (22-29); Chloride 107 mmol/L (98-107); Globulin 2.3 g/dL (1.3-4.6); Glomerular Filtration Rate 111.5 mL/min (90-130); Glucose 80 mg/dL (65-115); Lipase 77 U/L (13-60); Magnesium 1.9 mg/dL (1.7-2.3); Osmolality Calculated 292 mOsm/kg (285-295); Sodium 139 mmol/L (136-145); Total Bilirubin 0.2 mg/dL (0.15-1.2); Total Protein 5.9 g/dL (6.6-8.7)
[2020-06-08 15:43] LABS: Cholesterol 139 mg/dL (0-200); HDL Cholesterol 48 mg/dL (60-100); LDL Cholesterol Calculated 42 mg/dL (50-129); LDL HDL Ratio 0.88 RATIO (0.00-3.22); Triglycerides 245 mg/dL (0-150)
[2020-06-10 08:32] LABS: BK VIRUS DNA, QN PCR NO DNA DETECTED copies/mL; SOURCE PLASMA
== END 2020-06-15 23:59 | disposition home or self-care (01) ==
LOC: LAB 07:00
PROVIDERS: PCP Family Medicine; Visit Provider Internal Medicine Nephrology
DX: Z94.0 Kidney transplant status (principal); E78.5 Hyperlipidemia, unspecified; I10 Essential (primary) hypertension; Z79.899 Other long term (current) drug therapy
CPT/HCPCS: 80053; 80061; 80069; 80197; 81001; 83690; 83735; 85025; 87086; 87798

== ENCOUNTER 2020-06-15 12:40 | Emergency (ER) | payer MEDICARE, OTHER, SELFPAY ==
[2020-06-15 12:52] VITALS: BP 144/96; PULSE 80; RESP 16; TEMP 36.4; O2SAT 98; BMI 24.8
[2020-06-15 14:16] LABS: Add Urine Microscopic? NO
[2020-06-15 14:37] LABS: Urine Appearance Clear (CLEAR); Urine Color Yellow (Yellow)
[2020-06-15 14:38] LABS: Bilirubin Urine Neg (Negative); Blood Urine Neg (Negative); Glucose Urine UA Norm (Normal); Ketones Urine 1+ (Negative); Leukocyte Esterase Urine Negative (Negative); Nitrate Urine Negative (Negative); Protein Urine Neg (Negative); Specific Gravity, Urine 1.015 (1.005-1.030); Urobilinogen Urine Norm (Negative); pH Urine 5 (5-7)
[2020-06-15 15:00] VITALS: BP 123/85; PULSE 76; RESP 16; O2SAT 96
[2020-06-15 15:29] LABS: Basophils % 0.2 %; Eosinophils % 0.1 %; Hematocrit 51.3 % (42.0-52.0); Hemoglobin 16.9 g/dL (11.7-16.6); Lymphocytes # 0.7 10^3/uL (0.8-4.8); Lymphocytes % 8.2 %; Mean Corpuscular HGB Conc 32.9 g/dL (30.0-36.0); Mean Corpuscular Hemoglobin 32.9 pg (28.0-34.0); Mean Platelet Volume 9.3 fL (7.4-10.4); Monocytes # 1.1 10^3/uL (0.2-0.9); Monocytes % 12.1 %; Neutrophils # 6.93 10^3/uL (1.8-7.7); Neutrophils % 78.8 %; Nucleated Red Blood Cells % 0 %; Platelet Count 194 10^3/cmm (130-400); Red Blood Count 5.13 10^6/uL (4.1-5.3); Red Cell Distribution Width 12.4 % (12.1-15.1); White Blood Count 8.8 10^3/uL (4.0-10.0)
[2020-06-15] MEDS: sodium chloride 0.9% 1,000 ML 999 ML IV (15:36)
[2020-06-15 15:51] LABS: Partial Thromboplastin Time 25.1 SECONDS (23.9-36.7)
[2020-06-15 15:57] LABS: Alanine Aminotransferase 27 U/L (0-41); Albumin Level 3.9 g/dL (3.5-5.2); Alkaline Phosphatase 95 IU/L (40-130); Anion Gap 13.3 (5-19); Aspartate Amino Transferase 26 U/L (0-40); Blood Urea Nitrogen 22 mg/dL (8-23); Calcium 9.3 mg/dL (8.5-10.5); Carbon Dioxide 25 mmol/L (22-29); Chloride 104 mmol/L (98-107); Globulin 2.3 g/dL (1.3-4.6); Glomerular Filtration Rate 83.4 mL/min (90-130); Glucose 97 mg/dL (65-115); Lipase 47 U/L (13-60); Osmolality Calculated 289 mOsm/kg (285-295); Potassium 4.3 mmol/L (3.5-5.1); Sodium 138 mmol/L (136-145); Total Bilirubin 0.5 mg/dL (0.15-1.2); Total Protein 6.2 g/dL (6.6-8.7)
[2020-06-15 16:28] VITALS: BP 123/74; PULSE 66; RESP 16; O2SAT 96
--- NOTE | 2020-06-15 16:28 | PC.NURSE ---
patient denied any pain, stated felt good at this time.
--- NOTE | 2020-06-15 17:45 | ED_ITS ---
HPI - Nausea/Vomiting/Diarrhea General: Chief complaint: Nausea/Vomiting/Diarrhea Stated complaint: ABD PAIN Time Seen by Provider: 06/15/20 15:01 History of Present Illness: HPI Narrative: The patient is a 70-year-old male with past medical history of renal transplant approximately a year ago. He comes to the ER today complaining of nausea, vomiting, and diarrhea for the past 2 days. He says in the ER today he feels better and is not nauseous or having d iarrhea but he is having some abdominal cramping whenever he eats and drinks. He says he feels slightly dehydrated because he called someone who told him not to eat before he went to the ER. He has no abdominal pain, nausea, nor diarrhea in the ER right now. He admits whenever he did have diarrhea he had slight anal burning and he does have hemorrhoids which are known to cause burning with diar darryl for him. MD elicited complaint: nausea, vomiting and diarrhea Description of vomiting: food contents and watery Description of diarrhea: watery Associated nausea: Yes Location of pain: None Pain consistency: intermittent Severity: mild Quality: cramping Exacerbating factors: eating Relieving factors: none Associated symtoms: Reports no associated symptoms and nausea; Denies anxiety, change in vision, chest pain, dizziness, fatigue, headache(s) or palpitations Review of Systems General: Reports: 10 or more systems reviewed and unremarkable except in HPI and below Const: Denies: fatigue Eyes: Denies: change in vision, blurry vision or eye redness ENMT: Denies: throat pain, swelling of lips/tongue, ear or mastoid pain or nasal congestion Card: Denies: chest pain, palpitations, irregular heart rhythm, edema, dyspnea on exertion or orthopnea Resp: Denies: dyspnea, productive cough or non-productive cough GI: Reports: nausea, vomiting and diarrhea; Denies: abdominal pain or GI cramping : Denies: flank pain, urinary frequency or urinary urgency Musc: Denies: neck pain, back pain, extremity pain, joint pain, joint redness, limited range of motion or muscle weakness Skin/Breast: Denies: rash, pruritus, erythema, skin pain or skin tenderness Neuro: Denies: headache(s), numbness in extremities, weakness in extremities, sensory changes, difficulty walking, dizziness, confusion or Slurred speech present Psych: Denies: anxiety or depression Endo: Denies: polyuria All/Imm: Denies: urticaria, throat swelling or tongue swelling PFSH ED PFSH: Medical History Hypercholesteremia Kidney disease Surgical History Kidney transplant recipient Family History Other Diabetes Hypertension Denies family history of CAD (coronary artery disease) Cancer Social History Smoking and tobacco status: never smoked Alcohol intake: never History of recent travel: No Physical Exam Const: COMMON NORMALS: no acute distress, average body habitus, patient oriented x3, no limitations, healthy appearing, alert and well nourished GENERAL APPEARANCE: cooperative, comfortable, well kempt and well developed ORIENTATION/CONSCIOUSNESS: Yes awake, Yes oriented to person, Yes oriented to place and Yes oriented to time HENMT: COMMON NORMALS: normocephalic, external ears normal and Normal external nose present HEAD & SCALP: normal to inspection and normocephalic NOSE: Normal external nose present EXTERNAL EAR: Yes external ears normal MOUTH: Normal oral and palatal mucosa present THROAT: posterior oropharynx normal Eye: COMMON NORMALS: Equal, round and reactive pupils present and EOMs intact bilaterally GENERAL EYE: appearance normal, both eyes and all related structures PUPIL: Yes Equal, round and reactive pupils present Neck/C-Spine: COMMON NORMALS: full ROM, no lymphadenopathy, no meningeal signs and no JVD GENERAL: Yes normal visual inspection Lymph: LYMPHATIC: no lymphadenopathy noted Chest: COMMONS NORMALS: normal inspection of the chest and normal palpation of entire chest wall Resp: COMMON NORMALS: normal respiratory effort, No retractions, No use of accessory muscles, clear to auscultation bilaterally and percussion normal EFFORT & INSPECTION: Yes able to speak in complete sentences AUSCULTATION: clear to auscultation bilaterally PERCUSSION: percussion normal Cardio: COMMON NORMALS: no JVD, regular rate, regular rhythm, S1 normal heart sound present, S2 normal heart sound present and Peripheral pulses 2+ throughout RATE: regular rate RHYTHM: regular rhythm HEART SOUNDS: S1 normal heart sound present and S2 normal heart sound present PERIPHERAL PULSES: Peripheral pulses 2+ throughout GI: COMMON NORMALS: Normal to inspection, nondistended, normoactive bowel sounds present, Soft to palpation, non-tender and no masses INSPECTION: Yes normal to inspection PALPATION: Yes Soft to palpation : COMMON NORMALS: Yes no CVA tenderness BLADDER/KIDNEY EXAM: Yes no CVA tenderness Back/Pelvis: COMMON NORMALS: no CVA tenderness, thoracic and lumbar spine normal to inspection, no thoracic nor lumbar tenderness and thoraco-lumbar ROM normal Extremity: COMMON NORMALS: normal to inspection, full ROM, capillary refill normal, no joint enlargement and no pedal edema GENERAL: Yes normal exam except as noted Neuro: COMMON NORMALS: patient oriented x3, CN's II-XII intact bilaterally, moves all extremities, no focal motor deficits, no sensory deficits noted and gait normal SENSORIUM/ORIENTATION: Yes alert, Yes oriented to person, Yes oriented to place and Yes oriented to time MENINGEAL SIGNS: Yes no meningeal signs Psych: COMMON NORMALS: mental status grossly normal, Normal thought process present, cooperative, normal affect and speech normal APPEARANCE: Yes well kempt ATTITUDE: Yes calm SPEECH: Yes normal speech THOUGHT PROCESS: Normal thought process present Skin: COMMON NORMALS: no rashes or lesions noted GENERAL SKIN EXAM: no rashes or lesions noted Course Vital Signs: Vital signs: Vital Signs Temperature 97.6 F 06/15/20 12:52 Pulse Rate 66 06/15/20 16:28 Respiratory Rate 16 06/15/20 16:28 Blood Pressure 123/74 06/15/20 16:28 Pulse Oximetry 96 06/15/20 16:28 MDM - Nausea/Vomiting/Diarrhea MDM Narrative: Medical decision making narrative: He is here after a 2-day episode of nausea vomiting and diarrhea. Symptoms have resolved all that is left is a mild abdominal cramping. He did have some burning with the diarrhea related to his hemorrhoids however that feels better as well. Labs mostly normal. He was given a liter of fluids and feels well and ready for discharge. ER with worsening symptoms otherwise primary care early next week. He prefers to go home and try Preparation H for his hemorrhoids Lab Data: Labs: Lab Results 06/15/20 06/15/20 06/15/20 Range/Units 14:11 15:21 15:21 WBC 8.8 (4.0-10.0) 10^3/ uL RBC 5.13 (4.1-5.3) 10^6/u L Hgb 16.9 H (11.7-16.6) g/dL Hct 51.3 (42.0-52.0) % MCV 100.0 H (80-94) fL MCH 32.9 (28.0-34.0) pg MCHC 32.9 (30.0-36.0) g/dL RDW 12.4 (12.1-15.1) % Plt Count 194 (130-400) 10^3/c mm MPV 9.3 (7.4-10.4) fL Neut % (Auto) 78.8 % Lymph % (Auto) 8.2 % [place] % (Auto) 12.1 % Eos % (Auto) 0.1 % Baso % (Auto) 0.2 % Neut # (Auto) 6.93 (1.8-7.7) 10^3/u L Lymph # (Auto) 0.7 L (0.8-4.8) 10^3/u L [place] # (Auto) 1.1 H (0.2-0.9) 10^3/u L Eos # (Auto) 0.0 (0.0-0.8) 10^3/u L Baso # (Auto) 0.0 (0.0-0.1) 10^3/u L Nucleated RBC % (a uto) 0 % Nucleated RBCs # 0.0 /100WBC PT 13.50 (12.1-14.9) SECO NDS INR 1.00 (0.8-1.2) APTT 25.1 (23.9-36.7) SECO NDS Sodium (136-145) mmol/L Potassium (3.5-5.1) mmol/L Chloride (98-107) mmol/L Carbon Dioxide (22-29) mmol/L Anion Gap (5-19) BUN (8-23) mg/dL Creatinine (0.7-1.2) mg/dL GFR Calculation (90-130) mL/min Glucose (65-115) mg/dL Calculated Osmolal ity (285-295) mOsm/k g Calcium (8.5-10.5) mg/dL Total Bilirubin (0.15-1.2) mg/dL AST (0-40) U/L ALT (0-41) U/L Alkaline Phosphata se (40-130) IU/L Total Protein (6.6-8.7) g/dL Albumin (3.5-5.2) g/dL Globulin (1.3-4.6) g/dL Lipase (13-60) U/L Urine Color Yellow (Yellow) Urine Appearance Clear (CLEAR) Urine pH 5 (5-7) Ur Specific Gravit y 1.015 (1.005-1.030) Urine Protein Neg (Negative) Urine Glucose (UA) Norm (Normal) Urine Ketones 1+ H (Negative) Urine Blood Neg (Negative) Urine Nitrate Negative (Negative) Urine Bilirubin Neg (Negative) Urine Urobilinogen Norm (Negative) mg/dL Ur Leukocyte Jenelle ase Negative (Negative) 06/15/20 Range/Units 15:21 WBC (4.0-10.0) 10^3/ uL RBC (4.1-5.3) 10^6/u L Hgb (11.7-16.6) g/dL Hct (42.0-52.0) % MCV (80-94) fL MCH (28.0-34.0) pg MCHC (30.0-36.0) g/dL RDW (12.1-15.1) % Plt Count (130-400) 10^3/c mm MPV (7.4-10.4) fL Neut % (Auto) % Lymph % (Auto) % [place] % (Auto) % Eos % (Auto) % Baso % (Auto) % Neut # (Auto) (1.8-7.7) 10^3/u L Lymph # (Auto) (0.8-4.8) 10^3/u L [place] # (Auto) (0.2-0.9) 10^3/u L Eos # (Auto) (0.0-0.8) 10^3/u L Baso # (Auto) (0.0-0.1) 10^3/u L Nucleated RBC % (a uto) % Nucleated RBCs # /100WBC PT (12.1-14.9) SECO NDS INR (0.8-1.2) APTT (23.9-36.7) SECO NDS Sodium 138 (136-145) mmol/L Potassium 4.3 (3.5-5.1) mmol/L Chloride 104 (98-107) mmol/L Carbon Dioxide 25 (22-29) mmol/L Anion Gap 13.3 (5-19) BUN 22 (8-23) mg/dL Creatinine 0.9 (0.7-1.2) mg/dL GFR Calculation 83.4 L (90-130) mL/min Glucose 97 (65-115) mg/dL Calculated Osmolal ity 289 (285-295) mOsm/k g Calcium 9.3 (8.5-10.5) mg/dL Total Bilirubin 0.5 (0.15-1.2) mg/dL AST 26 (0-40) U/L ALT 27 (0-41) U/L Alkaline Phosphata se 95 (40-130) IU/L Total Protein 6.2 L (6.6-8.7) g/dL Albumin 3.9 (3.5-5.2) g/dL Globulin 2.3 (1.3-4.6) g/dL Lipase 47 (13-60) U/L Urine Color (Yellow) Urine Appearance (CLEAR) Urine pH (5-7) Ur Specific Gravit y (1.005-1.030) Urine Protein (Negative) Urine Glucose (UA) (Normal) Urine Ketones (Negative) Urine Blood (Negative) Urine Nitrate (Negative) Urine Bilirubin (Negative) Urine Urobilinogen (Negative) mg/dL Ur Leukocyte Jenelle ase (Negative) Discharge Plan Discharge Patient Disposition: Home Clinical Impression: Gastroenteritis Condition: Stable Prescriptions: No Action Envarsus XR 1 mg tablet extended release 24 hr 3 mg PO BEDTIME RF: 0 prednisone 5 mg tablet 5 mg PO DAILY@0930 RF: 0 pantoprazole 40 mg tablet,delayed release (DR/EC) 40 mg PO Q2D RF: 0 cholecalciferol (vitamin D3) [Vitamin D3] 50 mcg (2,000 unit) capsule 50 mcg PO DAILY@0900 RF: 0 atorvastatin 10 mg tablet 10 mg PO DAILY@0900 RF: 0 temazepam 30 mg capsule 30 mg PO BEDTIME RF: 0 Aspir-81 81 mg Tablet,Delayed Release (Dr/Ec) 81 mg PO DAILY@0930 RF: 0 mycophenolate sodium 360 mg tablet,delayed release (DR/EC) 360 mg PO DAILY@0930 RF: 0 Discharge Orders: Discharge ED (Routine); Ordered 06/15/20 Ordered By: Chaz Darling Referrals: Clint Higgins MD [Primary Care Provider] - Discharge Diet: Advance as tolerated Discharge Activity: Resume usual activity Patient Instructions: Gastroenteritis (ED), Opioid Safety Activity Restrictions/Additional Instructions: You most likely have gastroenteritis causing her diarrhea. Please drink lots of fluids and advance your diet as tolerated over the next day or 2. Return to the ER with worsening symptoms otherwise follow-up with your primary care provider in a couple days. Coding Level of Care Code ED [employer] Server for Jimi Mobley
== END 2020-06-15 18:20 | disposition home or self-care (01) ==
PROVIDERS: Physician Assistant; Emergency Provider Family Medicine; PCP Family Medicine
DX: K52.9 Noninfective gastroenteritis and colitis, unspecified (principal); Z79.82 Long term (current) use of aspirin; Z94.0 Kidney transplant status
CPT/HCPCS: 80053; 81003; 83690; 85025; 85610; 85730; 96360; 99283; J7030

== ENCOUNTER 2020-07-05 08:15 | Outpatient (RCR) | payer MEDICARE, OTHER, SELFPAY ==
[2020-07-05 11:26] LABS: Urine Appearance Clear (CLEAR); Urine Color Yellow (Yellow); pH Urine 5 (5-7)
[2020-07-05 11:27] LABS: Bilirubin Urine Neg (Negative); Blood Urine Neg (Negative); Glucose Urine UA Norm (Normal); Ketones Urine Negative (Negative); Leukocyte Esterase Urine Negative (Negative); Nitrate Urine Negative (Negative); Protein Urine Neg (Negative); Urobilinogen Urine Norm (Negative)
[2020-07-05 11:30] LABS: Basophils % 0.3 %; Eosinophils # 0.1 10^3/uL (0.0-0.8); Eosinophils % 1.1 %; Hematocrit 50.8 % (42.0-52.0); Hemoglobin 16.7 g/dL (11.7-16.6); Lymphocytes # 0.8 10^3/uL (0.8-4.8); Lymphocytes % 11.2 %; Mean Corpuscular HGB Conc 32.9 g/dL (30.0-36.0); Mean Corpuscular Hemoglobin 32.9 pg (28.0-34.0); Mean Platelet Volume 10.3 fL (7.4-10.4); Monocytes # 0.9 10^3/uL (0.2-0.9); Monocytes % 13.1 %; Neutrophils # 5.24 10^3/uL (1.8-7.7); Neutrophils % 73.6 %; Nucleated Red Blood Cells % 0 %; Platelet Count 188 10^3/cmm (130-400); Red Blood Count 5.08 10^6/uL (4.1-5.3); Red Cell Distribution Width 12.6 % (12.1-15.1); White Blood Count 7.1 10^3/uL (4.0-10.0)
[2020-07-05 11:47] LABS: Add Urine Culture? No; Bacteria Urine TRACE /hpf; Squamous Epithelial Cell Urine 0-4 /hpf (0-5)
[2020-07-05 11:48] LABS: Alanine Aminotransferase 27 U/L (0-41); Alkaline Phosphatase 104 IU/L (40-130); Anion Gap 11.9 (5-19); Aspartate Amino Transferase 28 U/L (0-40); Blood Urea Nitrogen 18 mg/dL (8-23); Calcium 9.3 mg/dL (8.5-10.5); Carbon Dioxide 26 mmol/L (22-29); Chloride 101 mmol/L (98-107); Glomerular Filtration Rate 83.4 mL/min (90-130); Glucose 78 mg/dL (65-115); Lipase 69 U/L (13-60); Osmolality Calculated 281 mOsm/kg (285-295); Phosphorus 2.5 mg/dL (2.5-4.5); Potassium 3.9 mmol/L (3.5-5.1); Sodium 135 mmol/L (136-145); Total Bilirubin 0.8 mg/dL (0.15-1.2)
[2020-07-05 12:22] LABS: Urine Creatinine 37 mg/dL (39-259); Urine Protein Random 4 mg/dL
[2020-07-05 12:23] LABS: UPRO/UCREAT Ratio 0.11 mg/mg CR
[2020-07-09 17:58] LABS: BK VIRUS DNA, QN PCR NO DNA DETECTED copies/mL; SOURCE PLASMA
== END 2020-07-15 23:59 | disposition home or self-care (01) ==
LOC: LAB 08:15
PROVIDERS: PCP Family Medicine; Visit Provider Internal Medicine Nephrology
DX: E78.5 Hyperlipidemia, unspecified (principal); I10 Essential (primary) hypertension; E78.00 Pure hypercholesterolemia, unspecified; Z94.0 Kidney transplant status; Z79.899 Other long term (current) drug therapy
CPT/HCPCS: 80053; 80069; 80197; 81001; 82570; 83690; 84156; 85025; 87086; 87798

== ENCOUNTER 2020-09-06 06:45 | Outpatient (RCR) | payer MEDICARE, OTHER, SELFPAY ==
[2020-09-06 07:35] LABS: Basophils % 0.4 %; Eosinophils # 0.2 10^3/uL (0.0-0.8); Eosinophils % 1.9 %; Hematocrit 51.1 % (42.0-52.0); Hemoglobin 16.5 g/dL (11.7-16.6); Mean Corpuscular HGB Conc 32.3 g/dL (30.0-36.0); Mean Corpuscular Hemoglobin 32.9 pg (28.0-34.0); Mean Corpuscular Volume 101.8 fL (80-94); Mean Platelet Volume 10.3 fL (7.4-10.4); Monocytes # 1.2 10^3/uL (0.2-0.9); Monocytes % 15.3 %; Neutrophils # 5.39 10^3/uL (1.8-7.7); Neutrophils % 68.5 %; Nucleated Red Blood Cells % 0 %; Platelet Count 189 10^3/cmm (130-400); Red Blood Count 5.02 10^6/uL (4.1-5.3); Red Cell Distribution Width 13.1 % (12.1-15.1); White Blood Count 7.9 10^3/uL (4.0-10.0)
[2020-09-06 07:54] LABS: Albumin Level 3.6 g/dL (3.5-5.2); Blood Urea Nitrogen 24 mg/dL (8-23); Carbon Dioxide 27 mmol/L (22-29); Chloride 107 mmol/L (98-107); Chol HDL Ratio 3.04 mg/dL (1.0-5.00); Cholesterol 140 mg/dL (0-200); Glomerular Filtration Rate 95.6 mL/min (90-130); Glucose 87 mg/dL (65-115); HDL Cholesterol 46 mg/dL (60-100); Phosphorus 2.6 mg/dL (2.5-4.5); Sodium 140 mmol/L (136-145); Triglycerides 427 mg/dL (0-150)
[2020-09-06 08:20] LABS: LDL Cholesterol Direct 47 mg/dL (0-100)
[2020-09-09 10:43] LABS: BK VIRUS DNA, QN PCR NO DNA DETECTED copies/mL; SOURCE WHOLE BLOOD
== END 2020-09-14 23:59 | disposition home or self-care (01) ==
LOC: LAB 06:45
PROVIDERS: PCP Family Medicine; Visit Provider Internal Medicine Nephrology
DX: E78.5 Hyperlipidemia, unspecified (principal); I10 Essential (primary) hypertension; E78.00 Pure hypercholesterolemia, unspecified; Z94.0 Kidney transplant status; Z79.899 Other long term (current) drug therapy
CPT/HCPCS: 36415; 80061; 80069; 80197; 83721; 85025; 87798

== ENCOUNTER 2020-10-04 06:57 | Outpatient (RCR) | payer MEDICARE, OTHER, SELFPAY ==
[2020-10-04 07:33] LABS: Basophils % 0.5 %; Eosinophils # 0.1 10^3/uL (0.0-0.8); Eosinophils % 1.1 %; Hematocrit 50.9 % (42.0-52.0); Hemoglobin 16.6 g/dL (11.7-16.6); Lymphocytes # 1.1 10^3/uL (0.8-4.8); Lymphocytes % 14.8 %; Mean Corpuscular HGB Conc 32.6 g/dL (30.0-36.0); Mean Corpuscular Hemoglobin 32.6 pg (28.0-34.0); Mean Platelet Volume 10.5 fL (7.4-10.4); Monocytes # 1.3 10^3/uL (0.2-0.9); Monocytes % 17.7 %; Neutrophils # 4.81 10^3/uL (1.8-7.7); Nucleated Red Blood Cells % 0 %; Platelet Count 175 10^3/cmm (130-400); Red Blood Count 5.09 10^6/uL (4.1-5.3); Red Cell Distribution Width 12.6 % (12.1-15.1); White Blood Count 7.4 10^3/uL (4.0-10.0)
[2020-10-04 07:47] LABS: Alanine Aminotransferase 26 U/L (0-41); Albumin Level 3.6 g/dL (3.5-5.2); Alkaline Phosphatase 122 IU/L (40-130); Anion Gap 11.2 (5-19); Aspartate Amino Transferase 24 U/L (0-40); Blood Urea Nitrogen 17 mg/dL (8-23); Calcium 8.9 mg/dL (8.5-10.5); Carbon Dioxide 25 mmol/L (22-29); Chloride 110 mmol/L (98-107); Chol HDL Ratio 1.98 mg/dL (1.0-5.00); Cholesterol 103 mg/dL (0-200); Glomerular Filtration Rate 95.6 mL/min (90-130); Glucose 79 mg/dL (65-115); HDL Cholesterol 52 mg/dL (60-100); LDL Cholesterol Calculated 33 mg/dL (50-129); LDL HDL Ratio 0.63 RATIO (0.00-3.22); Osmolality Calculated 294 mOsm/kg (285-295); Phosphorus 2.9 mg/dL (2.5-4.5); Potassium 4.2 mmol/L (3.5-5.1); Sodium 142 mmol/L (136-145); Total Bilirubin 0.4 mg/dL (0.15-1.2); Total Protein 5.6 g/dL (6.6-8.7); Triglycerides 91 mg/dL (0-150)
[2020-10-07 06:03] LABS: BK VIRUS DNA, QN PCR NO DNA DETECTED copies/mL; SOURCE WHOLE BLOOD
== END 2020-10-15 23:59 | disposition home or self-care (01) ==
LOC: LAB 06:57
PROVIDERS: PCP Family Medicine; Visit Provider Internal Medicine Nephrology
DX: E78.5 Hyperlipidemia, unspecified (principal); I10 Essential (primary) hypertension; Z94.0 Kidney transplant status
CPT/HCPCS: 36415; 80053; 80061; 80069; 80197; 85025; 87798

== ENCOUNTER 2020-11-01 08:24 | Outpatient (RCR) | payer MEDICARE, OTHER, SELFPAY ==
[2020-11-01 09:42] LABS: Basophils % 0.4 %; Eosinophils # 0.1 10^3/uL (0.0-0.8); Eosinophils % 0.8 %; Hematocrit 54.4 % (42.0-52.0); Hemoglobin 17.5 g/dL (11.7-16.6); Lymphocytes # 0.9 10^3/uL (0.8-4.8); Lymphocytes % 13.3 %; Mean Corpuscular HGB Conc 32.2 g/dL (30.0-36.0); Mean Corpuscular Hemoglobin 32.1 pg (28.0-34.0); Mean Corpuscular Volume 99.8 fl (80-94); Mean Platelet Volume 10.6 fL (7.4-10.4); Neutrophils % 70.5 %; Nucleated Red Blood Cells % 0 %; Platelet Count 211 10^3/cmm (130-400); Red Blood Count 5.45 10^6/uL (4.1-5.3); White Blood Count 7.1 10^3/uL (4.0-10.0)
[2020-11-01 11:32] LABS: Albumin Level 3.7 g/dL (3.5-5.2); Anion Gap 13.2 (5-19); Blood Urea Nitrogen 21 mg/dL (8-23); Calcium 9.3 mg/dL (8.5-10.5); Carbon Dioxide 24 mmol/L (22-29); Chloride 105 mmol/L (98-107); Glomerular Filtration Rate 95.6 mL/min (90-130); Glucose 82 mg/dL (65-115); Phosphorus 2.7 mg/dL (2.5-4.5); Potassium 4.2 mmol/L (3.5-5.1); Sodium 138 mmol/L (136-145)
[2020-11-05 03:28] LABS: BK VIRUS DNA, QN PCR NO DNA DETECTED copies/mL; SOURCE WHOLE BLOOD
== END 2020-11-15 23:59 | disposition home or self-care (01) ==
LOC: LAB 08:24
PROVIDERS: PCP Family Medicine; Visit Provider Internal Medicine Nephrology
DX: E78.5 Hyperlipidemia, unspecified (principal); I10 Essential (primary) hypertension; Z94.0 Kidney transplant status
CPT/HCPCS: 36415; 80069; 80197; 85025; 87798

== ENCOUNTER 2020-12-06 08:37 | Outpatient (CLI) | payer MEDICARE, OTHER, SELFPAY ==
--- NOTE | 2020-12-06 08:52 | US_ITS ---
WS: [id number] ULTRASOUND RENAL TECHNIQUE: Ultrasound examination of both kidneys. CLINICAL INFORMATION: ERYTHROCYTOSIS COMPARISON: None. FINDINGS: Right renal transplant. Multiple simple cysts in the right and left [place] kidneys. Cortica l atrophy both [place] kidneys. RIGHT RENAL TRANSPLANT Right kidney is normal in size and appearance. Echogenicity: Normal. Cortical thickness: 1.4 cm; Normal. Hydronephrosis: None. Perinephric fluid: None. Right kidney measures: 11.6 cm x 4.4 cm x 6.1 cm. TUOLUMNE BILATERAL KIDNEY Cortical atrophy bilateral [place] kidneys Simple left renal cysts largest measuring 2.4 x 1.9 x 2.1 cm and 2.2 x 2.4 x 2.0 cm. Echogenicity: Increased echogenicity can be seen with medical renal disease Cortical thickness: 0.9 cm left and 0.8 cm right; Hydronephrosis: None. Perinephric fluid: None. Left kidney measures: 11.2 cm x 4.4 cm x 4.9 cm. Right kidney measures: 9.7 x 5.6 x 5.1 cm Normal visualized aorta. Normal bladder US/US renal BI* [id number] IMPRESSION: 1. Normal-appearing right renal transplant. 2. 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
== END 2020-12-06 08:38 | disposition home or self-care (01) ==
PROVIDERS: PCP Family Medicine; Visit Provider Internal Medicine Nephrology
DX: D75.1 Secondary polycythemia (principal); N26.1 Atrophy of kidney (terminal); N28.1 Cyst of kidney, acquired
CPT/HCPCS: 76770

== ENCOUNTER 2021-01-01 09:54 | Emergency (ER) | payer MEDICARE, OTHER, SELFPAY ==
[2021-01-01 10:03] VITALS: BP 162/92; PULSE 76; RESP 14; TEMP 36.8; O2SAT 98; BMI 25.1
[2021-01-01 10:39] VITALS: BP 150/89; PULSE 70; RESP 14; O2SAT 96
--- NOTE | 2021-01-01 10:51 | ED_ITS ---
HPI - Dizziness General: Chief Complaint: Dizziness Stated Complaint: DIZZY/SOB/HIGH BP Time Seen by Provider: 01/01/21 10:06 Source: patient, family and RN notes reviewed History of Present Illness: HPI Narrative: 70-year-old male presents with near syncope with shortness of breath and lightheadedness that have been ongoing for the last several weeks. Patient reports she she has to sit down to relieve with rest. 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 Patient reports no issues with his transplant medications reports recent taking some Viagra from [place] last week prior to some of the symptoms developing he reports last stress test was over 1 year ago and came back unremarkable. Patient has been noting that his blood pressure has been slightly more elevated than normal when she is concerned he may need increase of his medications. MD elicited complaint: lightheadedness Timing: intermittent Severity: similar to previous episodes Description: lightheadedness and ongoing Context: change in body position Exacerbating factors: change in body position, exertion and standing Relieving factors: rest and lying down Associated symptoms: Reports weakness; Denies no associated symptoms, chest pain, chills, malaise or palpitations Associated neuro symptoms: Deny no associated symptoms, confusion, difficulty speaking, dysphagia, diplopia, extremity weakness, facial numbness, facial weakness, gait changes, numbness in extremities, visual changes or other Review of Systems General: Reports: 10 or more systems reviewed and unremarkable except in HPI and below Const: Denies: fever(s), chills, fatigue or malaise Eyes: Denies: change in vision or blurry vision Card: Denies: chest pain or palpitations Resp: Denies: dyspnea or productive cough GI: Denies: dysphagia : Denies: flank pain Musc: Denies: extremity pain or extremity swelling Skin/Breast: Denies: rash or pruritus Neuro: Reports: dizziness; Denies: numbness in extremities or confusion Psych: Denies: anxiety or depression [place]/Lymph: Denies: easy bleeding All/Imm: Denies: urticaria, throat swelling or facial swelling PFSH ED PFSH: Medical History Hypercholesteremia Kidney disease Surgical History Kidney transplant recipient Family History Other Diabetes Hypertension Denies family history of CAD (coronary artery disease) Cancer Social History Smoking and tobacco status: never smoked Alcohol intake: never History of recent travel: No Physical Exam Narrative: EXAM NARRATIVE: appearing nontoxic, somewhat anxious however appears in no obvious acute distress Const: COMMON NORMALS: no acute distress, patient oriented x3 and healthy appearing HENMT: COMMON NORMALS: normocephalic and atraumatic HEAD & SCALP: normocephalic and atraumatic Eye: COMMON NORMALS: Equal, round and reactive pupils present and EOMs intact bilaterally PUPIL: Yes Equal, round and reactive pupils present Neck/C-Spine: COMMON NORMALS: full ROM, supple and no JVD Lymph: LYMPHATIC: no lymphadenopathy noted Chest: COMMONS NORMALS: normal inspection of the chest and normal palpation of entire chest wall Resp: COMMON NORMALS: normal respiratory effort, No retractions and clear to auscultation bilaterally EFFORT & INSPECTION: Yes able to speak in complete sentences and Yes symmetric chest movement AUSCULTATION: clear to auscultation bilaterally Cardio: COMMON NORMALS: no JVD, regular rate and regular rhythm RATE: regular rate RHYTHM: regular rhythm GI: COMMON NORMALS: Normal to inspection, nondistended, normoactive bowel sounds present, Soft to palpation and non-tender INSPECTION: Yes normal to inspection PALPATION: Yes Soft to palpation : COMMON NORMALS: Yes no CVA tenderness BLADDER/KIDNEY EXAM: Yes no CVA tenderness Back/Pelvis: COMMON NORMALS: no CVA tenderness Extremity: COMMON NORMALS: normal to inspection and full ROM Neuro: COMMON NORMALS: patient oriented x3, CN's II-XII intact bilaterally, moves all extremities and no focal motor deficits Psych: COMMON NORMALS: mental status grossly normal, Normal thought process present, cooperative and normal affect THOUGHT PROCESS: Normal thought process present Skin: COMMON NORMALS: no rashes or lesions noted GENERAL SKIN EXAM: no rashes or lesions noted Course Vital Signs: Vital signs: Vital Signs Temperature 98.2 F 01/01/21 10:03 Pulse Rate 63 01/01/21 14:08 Respiratory Rate 14 01/01/21 10:39 Blood Pressure 156/120 01/01/21 13:18 Pulse Oximetry 96 01/01/21 13:18 MDM - Dizziness MDM Narrative: Medical decision making narrative: Due to the patient's symptoms patient will be observed emergency department had an episode of shaking however no EKG did not reveal any obvious acute underlying findings 2 troponins came back unremarkable. Upon reassessment patient is asymptomatic advise he contact primary care or nephrology in the morning for further evaluation manage ment of his blood pressure medication regimen as well as advised him to get set up for stress test. Patient family were advised to return in the interim if any of his symptoms persist or worse. All questions were fully answered prior to subsequent discharge home. Lab Data: Attestation: I reviewed the patient's lab results. Labs: Lab Results 01/01/21 01/01/21 01/01/21 10:32 10:32 10:32 WBC 6.4 10^3/uL 10^3/ uL (4.0-10.0) RBC 5.02 10^6/uL 10^6 /uL (4.1-5.3) Hgb 16.0 g/dL g/dL (11.7-16.6) Hct 48.8 % % (42.0-52.0) MCV 97.2 fl H fl (80-94) MCH 31.9 pg pg (28.0-34.0) MCHC 32.8 g/dL g/dL (30.0-36.0) RDW 12.1 % % (12.1-15.1) Plt Count 235 10^3/cmm 10^3 /cmm (130-400) MPV 10.4 fL fL (7.4-10.4) Neut % (Auto) 66.0 % % Lymph % (Auto) 16.5 % % [place] % (Auto) 15.2 % % Eos % (Auto) 0.8 % % Baso % (Auto) 0.6 % % Neut # (Auto) 4.20 10^3/uL 10^3 /uL (1.8-7.7) Lymph # (Auto) 1.1 10^3/uL 10^3/ uL (0.8-4.8) [place] # (Auto) 1.0 10^3/uL H 10^ 3/uL (0.2-0.9) Eos # (Auto) 0.1 10^3/uL 10^3/ uL (0.0-0.8) Baso # (Auto) 0.0 10^3/uL 10^3/ uL (0.0-0.1) Nucleated RBC % (a uto) 0 % % Nucleated RBCs # 0.0 /100WBC /100W BC PT 12.60 SECONDS SEC ONDS (12.1-14.9) INR 0.91 (0.8-1.2) Sodium 142 mmol/L mmol/L (136-145) Potassium 3.4 mmol/L L mmol /L (3.5-5.1) Chloride 106 mmol/L mmol/L (98-107) Carbon Dioxide 25 mmol/L mmol/L (22-29) Anion Gap 14.4 (5-19) BUN 12 mg/dL mg/dL (8-23) Creatinine 0.9 mg/dL mg/dL (0.7-1.2) GFR Calculation 83.4 mL/min L mL/ min (90-130) Glucose 94 mg/dL mg/dL (65-115) POC Glucose Calculated Osmolal ity 294 mOsm/kg mOsm/ kg (285-295) Calcium 9.4 mg/dL mg/dL (8.5-10.5) Total Bilirubin 0.6 mg/dL mg/dL (0.15-1.2) AST 20 U/L U/L (0-40) ALT 20 U/L U/L (0-41) Alkaline Phosphata se 121 IU/L IU/L (40-130) Troponin T Baselin e Troponin T 120 Min [place] Troponin T NT-Pro-B Natriuret Pep 110 pg/mL pg/mL (0-125) Total Protein 5.7 g/dL L g/dL (6.6-8.7) Albumin 3.7 g/dL g/dL (3.5-5.2) Globulin 2.0 g/dL g/dL (1.3-4.6) Lipase 70 U/L H U/L (13-60) Urine Color Urine Appearance Urine pH Ur Specific Gravit y Urine Protein Urine Glucose (UA) Urine Ketones Urine Blood Urine Nitrate Urine Bilirubin Urine Urobilinogen Ur Leukocyte Jenelle ase 01/01/21 01/01/21 01/01/21 10:32 11:51 11:55 WBC RBC Hgb Hct MCV MCH MCHC RDW Plt Count MPV Neut % (Auto) Lymph % (Auto) [place] % (Auto) Eos % (Auto) Baso % (Auto) Neut # (Auto) Lymph # (Auto) [place] # (Auto) Eos # (Auto) Baso # (Auto) Nucleated RBC % (a uto) Nucleated RBCs # PT INR Sodium Potassium Chloride Carbon Dioxide Anion Gap BUN Creatinine GFR Calculation Glucose POC Glucose 87 mg/dL mg/dL (70-110) Calculated Osmolal ity Calcium Total Bilirubin AST ALT Alkaline Phosphata se Troponin T Baselin e 15 ng/L ng/L (0-15) Troponin T 120 Min [place] Troponin T NT-Pro-B Natriuret Pep Total Protein Albumin Globulin Lipase Urine Color Yellow (Yellow) Urine Appearance Clear (CLEAR) Urine pH 7 (5-7) Ur Specific Gravit y 1.000 L (1.005-1.030) Urine Protein Neg (Negative) Urine Glucose (UA) Norm (Normal) Urine Ketones Negative (Negative) Urine Blood Neg (Negative) Urine Nitrate Negative (Negative) Urine Bilirubin Neg (Negative) Urine Urobilinogen Norm mg/dL mg/dL (Negative) Ur Leukocyte Jenelle ase Negative (Negative) 01/01/21 13:20 WBC RBC Hgb Hct MCV MCH MCHC RDW Plt Count MPV Neut % (Auto) Lymph % (Auto) [place] % (Auto) Eos % (Auto) Baso % (Auto) Neut # (Auto) Lymph # (Auto) [place] # (Auto) Eos # (Auto) Baso # (Auto) Nucleated RBC % (a uto) Nucleated RBCs # PT INR Sodium Potassium Chloride Carbon Dioxide Anion Gap BUN Creatinine GFR Calculation Glucose POC Glucose Calculated Osmolal ity Calcium Total Bilirubin AST ALT Alkaline Phosphata se Troponin T Baselin e Troponin T 120 Min [place] 12.61 ng/L ng/L (0-15) Delta Troponin T -2.39 ABS# L ABS# (0-10) NT-Pro-B Natriuret Pep Total Protein Albumin Globulin Lipase Urine Color Urine Appearance Urine pH Ur Specific Gravit y Urine Protein Urine Glucose (UA) Urine Ketones Urine Blood Urine Nitrate Urine Bilirubin Urine Urobilinogen Ur Leukocyte Jenelle ase EKG Data^: Normal sinus rhythm rate of 70 there does appear to be a baseline artifact from muscular tremors: Prior EKG tracings: not available for review Ischemic changes: non-specific ST-T wave changes Discharge Plan Discharge Patient Disposition: Home Clinical Impression: Exertional shortness of breath, Dizzinesses Condition: Stable Prescriptions: No Action Envarsus XR 1 mg tablet extended release 24 hr 2 mg PO DAILY RF: 0 prednisone 5 mg tablet 5 mg PO DAILY@0930 RF: 0 pantoprazole 40 mg tablet,delayed release (DR/EC) 40 mg PO DAILY PRN (Reason: Indigestion) RF: 0 cholecalciferol (vitamin D3) [Vitamin D3] 50 mcg (2,000 unit) capsule 50 mcg PO DAILY@0900 RF: 0 atorvastatin 10 mg tablet 10 mg PO DAILY@0900 RF: 0 temazepam 30 mg capsule 30 mg PO BEDTIME RF: 0 lisinopril 2.5 mg tablet 2.5 mg PO DAILY RF: 0 Lokelma 10 gram Powder In Packet 10 g PO DAILY RF: 0 aspirin [Aspir-81] 81 mg Tablet,Delayed Release (Dr/Ec) 81 mg PO DAILY@0930 RF: 0 mycophenolate sodium 360 mg tablet,delayed release (DR/EC) 360 mg PO BID RF: 0 Discharge Orders: Discharge ED (Routine); Ordered 01/01/21 Ordered By: Aman Tavarez Referrals: Clint Higgins MD [Primary Care Provider] - 1-3 days (please contact your primary care doctor for further evaluation for stress test thyroid studies as well as additional evaluation of your shortness of breath.) Discharge Diet: Cardiac Patient Instructions: Dyspnea (ED), Near Syncope (ED), Lightheadedness (ED), Dizziness (ED), Shortness of Breath (ED), Opioid Safety Activity Restrictions/Additional Instructions: Aman please follow-up with your primary care doctor or poultry scientist next 2 to 3 days for further evaluation of additional thyroid studies evaluation for stress echocardiogram of your heart and evaluation of your persistent dyspnea. In addition is advisable to be to speak with your poultry scientist about changing your medication for your high blood pressure if it does continue. Please return the interim if any of her symptoms persist or worsen meanwhile. Coding Level of Care Code ED [employer] Manager for Jimi Mobley
--- NOTE | 2021-01-01 10:52 | XRR_ITS ---
PROCEDURE INFORMATION: Exam: XR Chest Exam date and time: 01/01/2021 10:52 AM Age: 70 years old Clinical indication: Shortness of breath; Additional info: Dizziness TECHNIQUE: Imaging protocol: XR of the chest. Views: 1 view. COMPARISON: No relevant prior studies available. FINDINGS: Lungs: Unremarkable. No consolidation. Pulmonary vascularity is within normal limits. Pleural spaces: Unremarkable. No pleural effusion. No pneumothorax. Heart/Mediastinum: There is cardiomegaly. Bones/joints: No acute abnormality. XR/XR chest 1V portable [id number] IMPRESSION: No acute findings. Radiation Dose CTDIVOL = (mGy): DLP = (mGy-cm)
--- NOTE | 2021-01-01 10:52 | ECG_ITS ---
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 Measurements Intervals [place] Rate: 63 P: -7 [place]: 170 QRS: -18 QRSD: 106 T: -12 QT: 403 QTc: 413 Interpretive Statements SINUS RHYTHM WITH OCCASIONAL VENTRICULAR PREMATURE COMPLEXES Non spefic T wave abnormality No previous ECG available for comparison Electronically Signed On 01-01-2021 21:01:46 CDT by Mariah Cortes M.D. [email or web address]/[id number] f
[2021-01-01 11:19] LABS: Basophils % 0.6 %; Eosinophils # 0.1 10^3/uL (0.0-0.8); Eosinophils % 0.8 %; Hematocrit 48.8 % (42.0-52.0); Lymphocytes # 1.1 10^3/uL (0.8-4.8); Lymphocytes % 16.5 %; Mean Corpuscular HGB Conc 32.8 g/dL (30.0-36.0); Mean Corpuscular Hemoglobin 31.9 pg (28.0-34.0); Mean Corpuscular Volume 97.2 fl (80-94); Mean Platelet Volume 10.4 fL (7.4-10.4); Monocytes % 15.2 %; Nucleated Red Blood Cells % 0 %; Platelet Count 235 10^3/cmm (130-400); Red Blood Count 5.02 10^6/uL (4.1-5.3); Red Cell Distribution Width 12.1 % (12.1-15.1); White Blood Count 6.4 10^3/uL (4.0-10.0)
[2021-01-01 11:24] LABS: INR 0.91 (0.8-1.2)
[2021-01-01 11:31] LABS: Troponin(5th) Baseline 15 ng/L (0-15)
[2021-01-01 11:41] LABS: Alanine Aminotransferase 20 U/L (0-41); Albumin Level 3.7 g/dL (3.5-5.2); Alkaline Phosphatase 121 IU/L (40-130); Anion Gap 14.4 (5-19); Aspartate Amino Transferase 20 U/L (0-40); Blood Urea Nitrogen 12 mg/dL (8-23); Calcium 9.4 mg/dL (8.5-10.5); Carbon Dioxide 25 mmol/L (22-29); Chloride 106 mmol/L (98-107); Glomerular Filtration Rate 83.4 mL/min (90-130); Glucose 94 mg/dL (65-115); Lipase 70 U/L (13-60); NT Pro B Type Natriuretic Pept 110 pg/mL (0-125); Osmolality Calculated 294 mOsm/kg (285-295); Potassium 3.4 mmol/L (3.5-5.1); Sodium 142 mmol/L (136-145); Total Bilirubin 0.6 mg/dL (0.15-1.2); Total Protein 5.7 g/dL (6.6-8.7)
[2021-01-01] MEDS: sodium chloride 0.9% 500 ML 999 ML IV (11:50)
[2021-01-01 12:00] LABS: Glucose Point of Care 87 mg/dL (70-110)
[2021-01-01 12:52] LABS: Add Urine Microscopic? NO; Charge for UA Resulting for Rev
--- NOTE | 2021-01-01 12:52 | ECG_ITS ---
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 Measurements Intervals [place] Rate: 72 P: 31 [place]: 188 QRS: 20 QRSD: 99 T: -14 QT: 372 QTc: 408 Interpretive Statements SINUS RHYTHM INDETERMINATE AXIS INFERIOR MYOCARDIAL INFARCTION , OF INDETERMINATE AGE [40+ ms Q WAVE AND/OR ST/T ABNORMALITY IN II/aVF] Compared to ECG 01/01/2021 12:20:04 Indeterminate axis now present Myocardial infarct finding now present Ventricular premature complex(es) no longer present Electronically Signed On 01-01-2021 21:16:07 CDT by Mariah Cortes M.D. [id number]
[2021-01-01 12:54] LABS: Urine Color Yellow (Yellow)
[2021-01-01 12:55] LABS: Bilirubin Urine Neg (Negative); Blood Urine Neg (Negative); Glucose Urine UA Norm (Normal); Ketones Urine Negative (Negative); Leukocyte Esterase Urine Negative (Negative); Nitrate Urine Negative (Negative); Protein Urine Neg (Negative); Urine Appearance Clear (CLEAR); Urobilinogen Urine Norm (Negative); pH Urine 7 (5-7)
[2021-01-01 13:18] VITALS: BP 156/120; PULSE 74; O2SAT 96
[2021-01-01 14:08] VITALS: PULSE 63
[2021-01-01 14:35] LABS: Troponin 5 2HR 12.61 ng/L (0-15)
[2021-01-01 14:39] LABS: Troponin 5 2HR Delta -2.39 ABS# (0-10)
[2021-01-01 16:38] VITALS: BP 137/82; PULSE 74; RESP 21; O2SAT 97
== END 2021-01-01 16:40 | disposition home or self-care (01) ==
PROVIDERS: Emergency Provider Emergency Medicine; PCP Family Medicine
DX: R06.02 Shortness of breath (principal); R42 Dizziness and giddiness; Z79.82 Long term (current) use of aspirin; Z94.0 Kidney transplant status
CPT/HCPCS: 36415; 36416; 71045; 80053; 81003; 82962; 83690; 83880; 84484; 85025; 85610; 93005; 99284; J7040

== ENCOUNTER 2021-03-20 10:05 | Outpatient (CLI) | payer MEDICARE, OTHER, SELFPAY ==
--- NOTE | 2021-03-20 10:15 | US_ITS ---
WS: [id number] THYROID ULTRASOUND (TI-RADS CRITERIA) History: Thyroid nodule. Technique: Ultrasound examination of the thyroid and adjacent soft tissues is performed. FINDINGS: Right lobe: Length is not imaged cm x 1.8 cm x 1.9 cm. Enlarged heterogeneous RIGHT thyroid. Lymph nodes: None. NODULE: 1 Size: 1.8 x 1.9 x 2.8 Location: Mid Composition: Solid/almost completely solid (2) Echogenicity: Hypoechoic (2) Shape: Not taller than wide (0) Margins: Cannot determine (0) Echogenic foci: None (0) ACR TI-RADS total points: 4 ACR TI-RADS risk category: Moderately suspicious. Left lobe: 3.8 cm x 1.4 cm x 1.3 cm. Volume: 3.4 cm3. Normal size and echotexture. No significant or dominant nodules are present. Lymph nodes: None. Isthmus: 0.4 cm. US/US thyroid [id number] Impression: TR 4 Recommendation: Fine-needle aspiration with ultrasound guidance. Fine-needle aspiration recommended of the mid RIGHT thyroid nodule.
== END 2021-03-20 10:06 | disposition home or self-care (01) ==
LOC: RAD 10:09
PROVIDERS: PCP Family Medicine; Visit Provider Internal Medicine Nephrology
DX: Z48.22 Encounter for aftercare following kidney transplant (principal); E04.1 Nontoxic single thyroid nodule
CPT/HCPCS: 76536

== ENCOUNTER 2021-04-07 13:13 | Outpatient (CLI) | payer MEDICARE, OTHER, SELFPAY ==
[2021-04-07 13:30] VITALS: BP 104/72; PULSE 91; RESP 16; TEMP 36.6; O2SAT 97; BMI 25.8
[2021-04-07 13:58] VITALS: BP 93/69; PULSE 82; RESP 16; TEMP 36.8; O2SAT 96
[2021-04-07 15:03] VITALS: BP 96/71; PULSE 82; RESP 18; TEMP 36.6; O2SAT 95
== END 2021-04-07 13:14 | disposition home or self-care (01) ==
LOC: OPS 13:16
PROVIDERS: PCP Family Medicine; Visit Provider Family Medicine
DX: U07.1 COVID-19 (principal)
CPT/HCPCS: 96365

== ENCOUNTER 2021-06-04 22:08 | Emergency (ER) | payer MEDICARE, OTHER, SELFPAY ==
[2021-06-04 22:24] VITALS: BP 114/72; PULSE 114; RESP 18; TEMP 36.1; O2SAT 96; BMI 25.4
--- NOTE | 2021-06-04 22:43 | XRR_ITS ---
PROCEDURE INFORMATION: Exam: XR Chest Exam date and time: 06/04/2021 10:08 PM Age: 71 years old Clinical indication: Other: Nausea/vomiting; Patient HX: HX kidney transplant 2 yrs ago, prostate cancer; Additional info: N/v TECHNIQUE: Imaging protocol: XR of the chest. Views: 1 view. COMPARISON: CR XR chest 1V portable [id number] 01/01/2021 11:25 AM FINDINGS: Lungs: Poor inspiratory effort with some crowding of pulmonary markings and possible accentuation of the apparent heart size. Pleural spaces: Unremarkable. No pleural effusion. No pneumothorax. Heart/Mediastinum: See Lungs finding. Bones/joints: Unremarkable. Other findings: Lordotic chest x-ray. XR/XR chest 1V portable [id number] IMPRESSION: Poor inspiratory effort with some crowding of pulmonary markings and possible accentuation of the apparent heart size.
[2021-06-04 23:00] VITALS: BP 117/81; PULSE 95; RESP 20; O2SAT 98
--- NOTE | 2021-06-04 23:05 | W.ED.NAVMDI ---
HPI - Nausea/Vomiting/Diarrhea General: Chief complaint: Nausea/Vomiting/Diarrhea Stated complaint: N\V\ SOB Time Seen by Provider: 06/04/21 22:43 History of Present Illness: Patient is a 71-year-old male comes to the ED with nausea vomiting diarrhea. Patient said symptoms started approximately 3 hours ago. All day patient had been feeling normal. He ate some hot dogs, chips and water and about 40 minutes later he started getting diarrhea with some abdominal cramping and then developed nausea and vomiting. He has not been able to keep any fluids down since onset of symptoms. For the past 3 hours whenever he tries to drink some water he throws it right up. The 2 other people who ate the same hot dogs experienced similar symptoms tonight. Denies any fever, chills, chest pain or shortness of breath. Patient has had a kidney transplant back in 2019 and is on immunosuppressants currently. Associated nausea: Yes Associated symtoms: Reports nausea; Denies change in vision, chest pain, dysuria, fatigue, headache(s) or palpitations Review of Systems Const: Denies: fever(s), chills or fatigue Eyes: Denies: change in vision or eye discomfort ENMT: Denies: throat pain, odynophagia, nasal discharge or nasal congestion Card: Denies: chest pain, palpitations, edema, swelling of feet/ankles, dyspnea on exertion or orthopnea Resp: Denies: dyspnea, productive cough or non-productive cough GI: Reports: nausea, vomiting and diarrhea; Denies: abdominal pain, constipation or hematochezia : Denies: flank pain, difficulty urinating, dysuria or hematuria Musc: Denies: neck pain, back pain or extremity swelling Skin/Breast: Denies: rash or new lesions Neuro: Denies: headache(s), numbness in extremities or weakness in extremities PFSH ED PFSH: Medical History Hypercholesteremia Kidney disease Surgical History Kidney transplant recipient Family History Other Diabetes Hypertension Denies family history of CAD (coronary artery disease) Cancer Social History Smoking and tobacco status: never smoked Alcohol intake: never History of recent travel: No Physical Exam Const: COMMON NORMALS: patient oriented x3 and alert GENERAL APPEARANCE: cooperative HENMT: COMMON NORMALS: normocephalic HEAD & SCALP: normocephalic MOUTH: moist mucous membranes abnormal (Mild dryness noted) THROAT: posterior oropharynx normal and uvula midline Eye: COMMON NORMALS: Equal, round and reactive pupils present and conjunctivae normal CONJUNCTIVA: Yes conjunctivae normal PUPIL: Yes Equal, round and reactive pupils present Neck/C-Spine: COMMON NORMALS: supple GENERAL: Yes normal visual inspection Resp: COMMON NORMALS: normal respiratory effort, No retractions, No use of accessory muscles and clear to auscultation bilaterally AUSCULTATION: clear to auscultation bilaterally Cardio: COMMON NORMALS: regular rate, regular rhythm, S1 normal heart sound present, S2 normal heart sound present, No gallops present (Cardio), No clicks present (Cardio), No murmurs present (Cardio) and Peripheral pulses 2+ throughout RATE: regular rate RHYTHM: regular rhythm HEART SOUNDS: S1 normal heart sound present and S2 normal heart sound present PERIPHERAL PULSES: Peripheral pulses 2+ throughout GI: COMMON NORMALS: Normal to inspection, nondistended, normoactive bowel sounds present, Soft to palpation, non-tender and no masses PALPATION: Yes Soft to palpation : COMMON NORMALS: Yes no CVA tenderness BLADDER/KIDNEY EXAM: Yes no CVA tenderness Back/Pelvis: COMMON NORMALS: no CVA tenderness Extremity: COMMON NORMALS: normal to inspection Neuro: COMMON NORMALS: patient oriented x3 and moves all extremities SENSORIUM/ORIENTATION: Yes alert Skin: GENERAL SKIN EXAM: dry skin Course Reevaluation(s): Reevaluation #1: After patient received 2 L of IV fluids and a couple doses of Zofran his symptoms finally resolved. He feels a lot better and has been able to keep p.o. fluids down here in the ED. He appears stable and is ready to be discharged home. Time: 02:55 Vital Signs: Vital signs: Vital Signs Temperature 97.0 F L 06/04/21 22:24 Pulse Rate 98 06/05/21 03:53 Respiratory Rate 15 06/05/21 03:53 Blood Pressure 97/67 06/05/21 03:53 Pulse Oximetry 94 06/05/21 03:53 MDM - Nausea/Vomiting/Diarrhea Medical Decision Making Patient is a 71-year-old male comes to the ED with acute nausea, vomiting diarrhea. Past medical history of kidney transplant and is on immunosuppressants. Symptoms occurred just a couple hours ago after he ate some hot dogs for dinner. A couple other people who ate hotdogs with him at dinner tonight developed the same symptoms afterwards. He has some abdominal cramping pain that hits him and is relieved after he is bowel movement. No other abdominal pain noted. Patient was afebrile but a little tachycardic at 114 bpm upon arrival here in the ED. Rest of his vitals were stable. Patient had no palpable abdominal tenderness upon exam. Rest of exam was benign. White blood cell count of 16.8 and the rest of CBC and CMP were unremarkable. Lactic was 2.4. Lipase 66. Troponins were negative. EKG showed normal sinus rhythm, [address] segment elevation depression seen. Chest x-ray showed no acute findings. CT of abdomen pelvis showed some gallbladder hydrops but no other significant findings. Patient was given 2 L of IV fluids and some IV Zofran and his symptoms resolved. He was able to keep p.o. fluids down. Repeat lactic was 1.3. Patient's tachycardia resolved and his vitals are stable at discharge. Patient symptoms likely due to food poisoning. He was sent home with a prescription for Zofran for any reoccurring nausea and vomiting. Follow-up with PCP within the next week for reevaluation. Return to ED precautions given. Patient understood agree with plan. Lab Data I reviewed the patient's lab results. : 06/04/21 23:22 06/04/21 23:22 Radiology Impressions Chest X-Ray 06/04/21 22:43 IMPRESSION: Poor inspiratory effort with some crowding of pulmonary markings and possible accentuation of the apparent heart size. Abdomen/Pelvis CT 06/05/21 00:44 IMPRESSION: 1. Severe calcified coronary artery disease. 2. Enlarged greater than or equal to 5.0 cm transverse diameter gallbladder consistent with gallbladder hydrops. 3. Severe bilateral renal atrophy. 4. Right lower quadrant/pelvic renal transplant. COMMENTS: Consistent with the [employer]'s Incidental Findings Committee white paper (J Am Ryan Radiol 2018): Any incidental renal lesion less than 1 cm or classified as too small to characterize, or any incidental cystic renal lesion characterized as simple-appearing, is likely benign. No follow-up imaging is recommended for these lesions per consensus recommendations based on imaging criteria. Laboratory Results WBC 16.8 10^3/uL (4.0-10.0) H 06/04/21 23:22 RBC 5.98 10^6/uL (4.1-5.3) H 06/04/21 23:22 Hgb 19.2 g/dL (11.7-16.6) H 06/04/21 23:22 Hct 57.4 % (42.0-52.0) H 06/04/21 23: MCV 96.0 fl (80-94) H 06/04/21: MCH 32.1 pg (28.0-34.0) 06/04/21: MCHC 33.4 g/dL (30.0-36.0) 06/04/21: RDW 12.5 % (12.1-15.1) 06/04/21: Plt Count 238 10^3/cmm (130-400) 06/04/21 23: MPV 10.3 fL (7.4-10.4) 06/04/21: Neut % (Auto) 88.0 % 06/04/21: Lymph % (Auto) 3.7 % 06/04/21: [place] % (Auto) 7.3 % 06/04/21: Eos % (Auto) 0.2 % 06/04/21: Baso % (Auto) 0.2 % 06/04/21:22 Neut # (Auto) 14.77 10^3/uL (1.8-7.7) H 06/04/21 23: Lymph # (Auto) 0.6 10^3/uL (0.8-4.8) L 06/04/21: [place] # (Auto) 1.2 10^3/uL (0.2-0.9) H 06/04/21 23: Eos # (Auto) 0.0 10^3/uL (0.0-0.8) 06/04/21 23: Baso # (Auto) 0.0 10^3/uL (0.0-0.1) 06/04/21 23:22 Nucleated RBC % (auto) 0 % 06/04/21 23: Nucleated RBCs # 0.0 /100WBC 06/04/21 23:22 Sodium 140 mmol/L (136-145) 06/04/21 23:22 Potassium 4.3 mmol/L (3.5-5.1) 06/04/21 23:22 Chloride 103 mmol/L (98-107) 06/04/21 23:22 Carbon Dioxide 20 mmol/L (22-29) L 06/04/21 23:22 Anion Gap 21.3 (5-19) H 06/04/21 23:22 BUN 23 mg/dL (8-23) 06/04/21 23: Creatinine 1.0 mg/dL (0.7-1.2) 06/04/21 23: GFR Calculation Not Reportable 06/04/21 23: Glucose 105 mg/dL (65-115) 06/04/21 23:22 Calculated Osmolality 294 mOsm/kg (285-295) 06/04/21 23:22 Lactic Acid 2.4 mmol/L (0.5-2.2) H 06/04/21 23:22 Lactic Acid (Sepsis) 1.3 mmol/L (0.5-2.2) 06/05/21 02: Calcium 10.9 mg/dL (8.5-10.5) H 06/04/21 23:22 Total Bilirubin 0.7 mg/dL (0.15-1.2) 06/04/21 23:22 AST 33 U/L (0-40) 06/04/21 23: ALT 23 U/L (0-41) 06/04/21 23:22 Alkaline Phosphatase 148 IU/L (40-130) H 06/04/21 23:22 Troponin T Baseline 14 ng/L (0-15) 06/04/21 23:22 Troponin T 120 Minute 15.22 ng/L (0-15) H 06/05/21 01:33 Delta Troponin T 1.22 ABS# (0-10) 06/05/21 01:33 Total Protein 7.8 g/dL (6.6-8.7) 06/04/21 23:22 Albumin 5.0 g/dL (3.5-5.2) 06/04/21 23:22 Globulin 2.8 g/dL (1.3-4.6) 06/04/21 23:22 Lipase 66 U/L (13-60) H 06/04/21 23:22 EKG Data EKG 1: EKG interpretation date: 06/05/21 Interpretation: Normal sinus rhythm, 97 bpm, no ST segment elevation or depression seen. Discharge Plan Discharge Patient Disposition: Home Clinical Impression: Food poisoning Condition: Stable Prescriptions: New ondansetron 4 mg tablet,disintegrating 4 mg PO Q8H PRN (Reason: nausea and vomiting) Qty: 12 0RF No Action Envarsus XR 1 mg tablet extended release 24 hr 2 mg PO DAILY 0RF Rx Instructions: must be taken on empty stomach prednisone 5 mg tablet 5 mg PO DAILY@0930 0RF pantoprazole 40 mg tablet,delayed release (DR/EC) 40 mg PO DAILY PRN (Reason: Indigestion) 0RF cholecalciferol (vitamin D3) [Vitamin D3] 50 mcg (2,000 unit) capsule 50 mcg PO DAILY@0900 0RF atorvastatin 10 mg tablet 10 mg PO DAILY@0900 0RF temazepam 30 mg capsule 30 mg PO BEDTIME 0RF lisinopril 2.5 mg tablet 2.5 mg PO DAILY 0RF Lokelma 10 gram Powder In Packet 10 g PO DAILY 0RF aspirin [Aspir-81] 81 mg Tablet,Delayed Release (Dr/Ec) 81 mg PO DAILY@0930 0RF mycophenolate sodium 360 mg tablet,delayed release (DR/EC) 360 mg PO BID 0RF Discharge Orders: Discharge ED (Routine); Ordered 06/05/21 Ordered By: Abhijeet Jay Referrals: Clint Higgins MD [Primary Care Provider] - Discharge Diet: Advance as tolerated Discharge Activity: Resume usual activity Patient Instructions: Food Poisoning (ED) Activity Restrictions/Additional Instructions: Follow-up with medical provider as directed in the next 5 to 7 days for reevaluation. Make sure you continue drink plenty of fluids and stay hydrated. Slowly advance diet as tolerated for the next 12 to 24 hours. Take medications as prescribed. Return to the ER or your medical provider if condition worsens. Please read and understand discharge instructions. Thank you for choosing [facility] for your healthcare needs today. Please realize this is an emergency room and that we are providing you with a medical screening exam and this may not be complete and all inclusive of all the testing and or work up that you may need to determine your ailment or severity of your illness. It is very important that you follow up as instructed or that you return to the Emergency Department should you have concerns or if your condition changes or worsens in any way. Coding Level of Care Code ED Freight Inspector for Jimi Fwd Exam Comprehensive
[2021-06-04] MEDS: ondansetron 2 mg/ML SDV 2 mL 4 MG IVP (23:15)
[2021-06-04] MEDS: sodium chloride 0.9% 1,000 ML 999 ML IV (23:15)
[2021-06-04 23:30] LABS: Basophils % 0.2 %; Eosinophils % 0.2 %; Hematocrit 57.4 % (42.0-52.0); Hemoglobin 19.2 g/dL (11.7-16.6); Lymphocytes # 0.6 10^3/uL (0.8-4.8); Lymphocytes % 3.7 %; Mean Corpuscular HGB Conc 33.4 g/dL (30.0-36.0); Mean Corpuscular Hemoglobin 32.1 pg (28.0-34.0); Mean Platelet Volume 10.3 fL (7.4-10.4); Monocytes # 1.2 10^3/uL (0.2-0.9); Monocytes % 7.3 %; Neutrophils # 14.77 10^3/uL (1.8-7.7); Nucleated Red Blood Cells % 0 %; Platelet Count 238 10^3/cmm (130-400); Red Blood Count 5.98 10^6/uL (4.1-5.3); Red Cell Distribution Width 12.5 % (12.1-15.1); White Blood Count 16.8 10^3/uL (4.0-10.0)
[2021-06-04 23:46] LABS: Lactic Sepsis W/Reflex 2.4 mmol/L (0.5-2.2)
[2021-06-04 23:52] LABS: Alanine Aminotransferase 23 U/L (0-41); Alkaline Phosphatase 148 IU/L (40-130); Blood Urea Nitrogen 23 mg/dL (8-23); Calcium 10.9 mg/dL (8.5-10.5); Carbon Dioxide 20 mmol/L (22-29); Chloride 103 mmol/L (98-107); Globulin 2.8 g/dL (1.3-4.6); Glucose 105 mg/dL (65-115); Lipase 66 U/L (13-60); Osmolality Calculated 294 mOsm/kg (285-295); Sodium 140 mmol/L (136-145); Total Bilirubin 0.7 mg/dL (0.15-1.2); Total Protein 7.8 g/dL (6.6-8.7)
[2021-06-04 23:53] LABS: Anion Gap 21.3 (5-19); Aspartate Amino Transferase 33 U/L (0-40); Potassium 4.3 mmol/L (3.5-5.1); Troponin(5th) Baseline 14 ng/L (0-15)
[2021-06-05] MEDS: ondansetron 2 mg/ML SDV 2 mL 4 MG IVP (00:17)
--- NOTE | 2021-06-05 00:43 | ECG_ITS ---
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 Measurements Intervals [place] Rate: 97 P: 11 [place]: 164 QRS: 0 QRSD: 100 T: 1 QT: 341 QTc: 434 Interpretive Statements SINUS RHYTHM Compared to ECG 01/01/2021 13:27:57 Indeterminate axis no longer present Myocardial infarct finding no longer present Electronically Signed On 06-05-2021 20:28:36 CDT by Henrietta Hung M.D. [email or web address] Networkmonroe regional hospitalWholesome Petsmetrohealth main campus medical centerPaice/store/OV/[id number]
--- NOTE | 2021-06-05 00:44 | CTR_ITS ---
PROCEDURE INFORMATION: Exam: CT Abdomen And Pelvis Without Contrast Exam date and time: 06/05/2021 12:57 AM Age: 71 years old Clinical indication: Nausea and vomiting; Prior surgery; Surgery date: 6+ months; Surgery type: Prostate, renal tx; Patient HX: C/O n/v/d and abd cramping; Additional info: N/v/d and abdominal cramping TECHNIQUE: Imaging protocol: Computed tomography of the abdomen and pelvis without contrast. Radiation optimization: All CT scans at this facility use at least one of these dose optimization techniques: automated exposure control; mA and/or kV adjustment per patient size (includes targeted exams where dose is matched to clinical indication); or iterative reconstruction. COMPARISON: US renal BI* [id number] 12/06/2020 9:05 AM RADIATION DOSE METRICS: Total DLP (mGy-cm): 1606.11 FINDINGS: Heart: Severe calcified coronary artery disease. Liver: Normal. No mass. Gallbladder and bile ducts: Enlarged greater than or equal to 5.0 cm transverse diameter gallbladder consistent with gallbladder hydrops. Pancreas: Normal. No ductal dilation. Spleen: Calcified splenic granulomas. Adrenal glands: Normal. No mass. Kidneys and ureters: Severe bilateral renal atrophy. Right lower quadrant/pelvic renal transplant. Multiple right renal simple cysts with the largest measuring > 1.0 cm . Multiple left renal simple cysts with the largest measuring > 1.0 cm. Stomach and bowel: Unremarkable. No obstruction. No mucosal thickening. Appendix: No evidence of appendicitis. Intraperitoneal space: Unremarkable. No free air. No significant fluid collection. Vasculature: Calcification of the abdominal aorta and/or iliac arteries consistent with atherosclerotic vessel disease. One or more calcified pelvic phleboliths. Lymph nodes: Unremarkable. No enlarged lymph nodes. Urinary bladder: Unremarkable as visualized. Reproductive: Severe atrophy of the prostate and seminal vesicles. Bones/joints: Mild to moderate multilevel spine degenerative changes including degenerative disc disease, spondylosis and facet degenerative changes. Soft tissues: Unremarkable. Other findings: Examination is limited secondary to motion artifact. CT/CT abdomen pelvis wo con [id number] IMPRESSION: 1. Severe calcified coronary artery disease. 2. Enlarged greater than or equal to 5.0 cm transverse diameter gallbladder consistent with gallbladder hydrops. 3. Severe bilateral renal atrophy. 4. Right lower quadrant/pelvic renal transplant. COMMENTS: Consistent with the [employer]'s Incidental Findings Committee white paper (J Am Ryan Radiol 2018): Any incidental renal lesion less than 1 cm or classified as too small to characterize, or any incidental cystic renal lesion characterized as simple-appearing, is likely benign. No follow-up imaging is recommended for these lesions per consensus recommendations based on imaging criteria.
[2021-06-05 01:13] LABS: Reflex Lactate Order REFLEX LACTIC ORDERD
[2021-06-05] MEDS: sodium chloride 0.9% 1,000 ML 999 ML IV (01:17)
[2021-06-05 01:41] VITALS: BP 115/75; PULSE 98; RESP 18; O2SAT 98
[2021-06-05] MEDS: acetaminophen 325 mg Tablet 650 MG PO (01:43)
[2021-06-05 02:09] LABS: Troponin 5 2HR 15.22 ng/L (0-15)
[2021-06-05 02:10] LABS: Troponin 5 2HR Delta 1.22 ABS# (0-10)
[2021-06-05 02:57] LABS: Lactic Acid level (Lactate) 1.3 mmol/L (0.5-2.2)
[2021-06-05] MEDS: metoclopramide 5 mg/mL SDV 2 mL IVP (03:38)
[2021-06-05 03:53] VITALS: BP 97/67; PULSE 98; RESP 15; O2SAT 94
== END 2021-06-05 03:55 | disposition home or self-care (01) ==
PROVIDERS: Emergency Provider Physician Assistant; PCP Family Medicine
DX: A05.9 Bacterial foodborne intoxication, unspecified (principal); Z79.82 Long term (current) use of aspirin; Z94.0 Kidney transplant status
CPT/HCPCS: 71045; 74176; 80053; 83605; 83690; 84484; 85025; 93005; 96361; 96374; 96375; 96376; 99284; J2405; J2765; J7030

== ENCOUNTER 2021-06-08 10:31 | Emergency (ER) | payer MEDICARE, OTHER, SELFPAY ==
[2021-06-08 10:41] VITALS: BP 145/87; PULSE 69; RESP 18; TEMP 36.4; O2SAT 97; BMI 25.1
--- NOTE | 2021-06-08 11:03 | ED_ITS ---
HPI - General Adult General: Chief complaint: General Medical Stated complaint: V/D/N, difficulty with memory Time Seen by Provider: 06/08/21 11:02 History of Present Illness: Mr. Musa is a 71-year-old gentleman with significant past medical history of transplant kidney recipient who presents to the emergency department due to episode of confusion/memory disturbance. He was seen on 06/08 when he had subacute onset of multiple episodes of vomiting and diarrhea. He was found to be dehydrated at that time and given symptom treatment. He initially felt like he was improving however this morning woke up having difficulty with memory. 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 He denies other associated neurologic deficits. Additionally has had 2 or 3 sharp left upper quadrant/epigastric episodes of pain which are short-lived and associated with nausea. He has not had recurrent vomiting. Overall intensity symptoms at worst was moderate. Course is improved. No other specific changes in health, exacerbating, or alleviating factors identified. Onset (ago): hour(s) Severity: moderate Quality: sharp Pain Consistency: intermittent Review of Systems General: Reports: 10 or more systems reviewed and unremarkable except in HPI and below PFSH ED PFSH: Medical History Hypercholesteremia Kidney disease Surgical History Kidney transplant recipient Family History Other Diabetes Hypertension Denies family history of CAD (coronary artery disease) Cancer Social History Smoking and tobacco status: never smoked Alcohol intake: never History of recent travel: No Physical Exam Const: COMMON NORMALS: patient oriented x3 and alert GENERAL APPEARANCE: cooperative and well developed HENMT: COMMON NORMALS: normocephalic and atraumatic HEAD & SCALP: normocephalic and atraumatic THROAT: posterior oropharynx normal Eye: COMMON NORMALS: conjunctivae normal CONJUNCTIVA: Yes conjunctivae normal SCLERA: sclerae normal Neck/C-Spine: COMMON NORMALS: supple GENERAL: Yes trachea midline Resp: COMMON NORMALS: normal respiratory effort EFFORT & INSPECTION: Yes able to speak in complete sentences Cardio: COMMON NORMALS: regular rate and regular rhythm RATE: regular rate RHYTHM: regular rhythm GI: COMMON NORMALS: Soft to palpation PALPATION: Yes Soft to palpation and No Tenderness to palpation present (GI) PERCUSSION: normal to percussion Extremity: GENERAL: Yes normal exam except as noted and No edema Neuro: COMMON NORMALS: patient oriented x3, CN's II-XII intact bilaterally, moves all extremities, no focal motor deficits and no sensory deficits noted SENSORIUM/ORIENTATION: Yes alert and No Orientation impaired Psych: COMMON NORMALS: mental status grossly normal and Normal thought process present THOUGHT PROCESS: Normal thought process present Course ED course: - Patient was seen and evaluated by me at bedside - Patient placed on cardiac monitors, IV access obtained - Initial evaluation notable for exam as above - Labs and xrays personally interpreted by me -Fluids given - Labs notable for overall improved labs. No leukocytosis, globin improved tho ugh still likely mildly hemoconcentrated. No acute electrolyte derangements. Chronic elevated lipase of uncertain etiology. No evidence of urinary tract infection. tacrolimus level pending at time of discharge however appears within normal range at time of no completion. - Imaging notable for negative head CT for acute cause of symptoms - Upon serial reexamination after treatment the patient was mildly improved, patient requested additional IV fluids which were ordered. - Based on patient history, evaluation, and testing as interpreted the most likely cause of the patient's condition is unclear etiology of generalized symptoms - The results of ED evaluation were discussed with the patient including prescriptions and/or symptomatic cares (if applicable) including appropriate and responsible use, followup plan, and return precautions. The patient verbalized understanding and felt safe for discharge. - Patient discharged in satisfactory condition. Note: Click bubbles or prepopulated chavez in note writing are used for assistance with data collection and billing and are inherently more limited than narrative and other text portions of this note. Please use narrative for additional clinical history and defer to narrative/free test for any case of contradictory information. If information appears in only free text or click bubble it should be considered present or absent as reported. Please contact note justowriter operator for clarifications of clinical information or contradictory information. MDM is a brief summary, contradictory or erroneous seeming information should be clarified and full note should be reviewed. Vital Signs: Vital signs: Vital Signs Temperature 97.6 F 06/08/21 10:41 Pulse Rate 65 06/08/21 14:59 Respiratory Rate 16 06/08/21 14:59 Blood Pressure 141/62 06/08/21 14:59 Pulse Oximetry 98 06/08/21 14:59 [facility] - General Adult Medical Decision Making 71-year-old gentleman with history of kidney transplant presenting with confusion and continued generalized symptoms. Nonfocal neurologic exam. Labs improved from prior. Negative head imaging. Improved with fluids. Satisfactory for outpatient management/follow-up. Medical Records I reviewed the patient's medical records. Lab Data I reviewed the patient's lab results. : 06/08/21 11:10 06/08/21 11:[address] 06/08/21 11:16 IMPRESSION: 1. No evidence of intracranial hemorrhage or mass effect. 2. Mild small vessel changes. Mild parenchymal volume loss. 3. No acute intracranial findings. Laboratory Results WBC 8.3 10^3/uL (4.0-10.0) 06/08/21 11:10 RBC 5.16 10^6/uL (4.1-5.3) 06/08/21 11:10 Hgb 16.4 g/dL (11.7-16.6) 06/08/21 11:10 Hct 50.8 % (42.0-52.0) 06/08/21 11:10 MCV 98.4 fl (80-94) H 06/08/21 11:10 MCH 31.8 pg (28.0-34.0) 06/08/21 11:10 MCHC 32.3 g/dL (30.0-36.0) 06/08/21 11:10 RDW 12.5 % (12.1-15.1) 06/08/21 11:10 Plt Count 233 10^3/cmm (130-400) 06/08/21 11:10 MPV 9.7 fL (7.4-10.4) 06/08/21 11:10 Neut % (Auto) 77.2 % 06/08/21 11:10 Lymph % (Auto) 9.5 % 06/08/21 11:10 [place] % (Auto) 12.1 % 06/08/21 11:10 Eos % (Auto) 0.5 % 06/08/21 11:10 Baso % (Auto) 0.2 % 06/08/21 11:10 Neut # (Auto) 6.44 10^3/uL (1.8-7.7) 06/08/21 11:10 Lymph # (Auto) 0.8 10^3/uL (0.8-4.8) 06/08/21 11:10 [place] # (Auto) 1.0 10^3/uL (0.2-0.9) H 06/08/21 11:10 Eos # (Auto) 0.0 10^3/uL (0.0-0.8) 06/08/21 11:10 Baso # (Auto) 0.0 10^3/uL (0.0-0.1) 06/08/21 11:10 Nucleated RBC % (auto) 0 % 06/08/21 11:10 Nucleated RBCs # 0.0 /100WBC 06/08/21 11:10 Sodium 138 mmol/L (136-145) 06/08/21 11:10 Potassium 4.2 mmol/L (3.5-5.1) 06/08/21 11:10 Chloride 104 mmol/L (98-107) 06/08/21 11:10 Carbon Dioxide 26 mmol/L (22-29) 06/08/21 11:10 Anion Gap 12.2 (5-19) 06/08/21 11:10 BUN 15 mg/dL (8-23) 06/08/21 11:10 Creatinine 0.9 mg/dL (0.7-1.2) 06/08/21 11:10 GFR Calculation Not Reportable 06/08/21 11:10 Glucose 96 mg/dL (65-115) 06/08/21 11:10 Calculated Osmolality 287 mOsm/kg (285-295) 06/08/21 11:10 Calcium 9.9 mg/dL (8.5-10.5) 06/08/21 11:10 Total Bilirubin 0.4 mg/dL (0.15-1.2) 06/08/21 11:10 AST 21 U/L (0-40) 06/08/21 11:10 ALT 16 U/L (0-41) 06/08/21 11:10 Alkaline Phosphatase 112 IU/L (40-130) 06/08/21 11:10 Total Protein 6.3 g/dL (6.6-8.7) L 06/08/21 11:10 Albumin 3.8 g/dL (3.5-5.2) 06/08/21 11:10 Globulin 2.5 g/dL (1.3-4.6) 06/08/21 11:10 Lipase 66 U/L (13-60) H 06/08/21 11:10 TSH 1.77 uIU/mL (0.27-4.20) 06/08/21 11:10 Urine Color Yellow (Yellow) 06/08/21 11:26 Urine Appearance Clear (CLEAR) 06/08/21 11:26 Urine pH 5 (5-7) 06/08/21 11:26 Ur Specific [place] 1.020 (1.005-1.030) 06/08/21 11:26 Urine Protein Neg (Negative) 06/08/21 11:26 Urine Glucose (UA) Norm (Normal) 06/08/21 11:26 Urine Ketones Negative (Negative) 06/08/21 11:26 Urine Blood Neg (Negative) 06/08/21 11:26 Urine Nitrate Negative (Negative) 06/08/21 11:26 Urine Bilirubin Neg (Negative) 06/08/21 11:26 Urine Urobilinogen Norm mg/dL (Negative) 06/08/21 11:26 Ur Leukocyte Esterase Negative (Negative) 06/08/21 11:26 Tacrolimus (FK 506) 9.0 mcg/L 06/08/21 11:10 Discharge Plan Discharge Patient Disposition: Home Clinical Impression: Complaints of memory disturbance, Abdominal pain Condition: Stable Prescriptions: No Action Envarsus XR 1 mg tablet extended release 24 hr 2 mg PO DAILY 0RF Rx Instructions: must be taken on empty stomach prednisone 5 mg tablet 5 mg PO DAILY@0930 0RF pantoprazole 40 mg tablet,delayed release (DR/EC) 40 mg PO DAILY PRN (Reason: Indigestion) 0RF cholecalciferol (vitamin D3) [Vitamin D3] 50 mcg (2,000 unit) capsule 50 mcg PO DAILY@0900 0RF atorvastatin 10 mg tablet 10 mg PO DAILY@0900 0RF temazepam 30 mg capsule 30 mg PO BEDTIME 0RF aspirin [Aspir-81] 81 mg Tablet,Delayed Release (Dr/Ec) 81 mg PO DAILY@0930 0RF mycophenolate sodium 360 mg tablet,delayed release (DR/EC) 360 mg PO BID 0RF ondansetron 4 mg tablet,disintegrating 4 mg PO Q8H PRN (Reason: nausea and vomiting) Qty: 12 0RF Discharge Orders: Discharge ED (Routine); Ordered 06/08/21 Ordered By: Raman Herndon Referrals: Clint Higgins MD [Primary Care Provider] - Discharge Diet: Advance as tolerated and Clear Liquid Discharge Activity: Increase activity as tolerated Patient Instructions: Abdominal Pain (ED) Activity Restrictions/Additional Instructions: Thank you for visiting the emergency department. You were seen and evaluated for memory disturbance and abdominal discomfort. The exact cause of your symptoms is unclear as discussed. Laboratory studies are significantly improved from prior with the exception of your chronically elevated lipase which is similar. Other than normal age-related changes on your CT scan no acute abnormality is identified. Please follow-up with your primary care provider. Please return to the emergency department for any new neurologic symptoms, fevers, neck pain, or anything else that you are concerned about and feel needs emergency department evaluation. Coding Level of Care Code ED Head Operator Sulfide for Jimi Fwyoana Exam Comprehensive
[2021-06-08 11:12] VITALS: BP 145/96; PULSE 66; RESP 18; O2SAT 98
--- NOTE | 2021-06-08 11:16 | CT_ITS ---
WS: [id number] CT HEAD TECHNIQUE: Noncontrast CT of the head obtained from the skullbase to the vertex. CLINICAL INFORMATION: memory disturbance COMPARISON: CT 9 12,009 DLP: 962.[address] scans at [facility] use at least one of these dose optimization techniques: automated e xposure control; mA and/or kV adjustment per patient size (includes targeted exams where dose is matc hed to clinical indication); or iterative reconstruction. FINDINGS: No evidence of intracranial hemorrhage or mass effect. Ventricular system and basal cisterns are oneill nt. Mild small vessel changes with mild parenchymal volume loss. No extra-axial fluid collections. No evidence of mass or mass effect. Normal antony-white differentiation. Paranasal sinuses and mastoid air cells are well aerated. .Normal visualized soft tissues. CT/CT head wo con* [id number] IMPRESSION: 1. No evidence of intracranial hemorrhage or mass effect. 2. Mild small vessel changes. Mild parenchymal volume loss. 3. No acute intracranial findings.
[2021-06-08] MEDS: lactated ringers 1,000 ML 999 ML IV ×2 (11:20→13:26)
[2021-06-08 11:31] LABS: Add Urine Microscopic? NO; Charge for UA Resulting for Rev
[2021-06-08 11:35] LABS: Basophils % 0.2 %; Eosinophils % 0.5 %; Hematocrit 50.8 % (42.0-52.0); Hemoglobin 16.4 g/dL (11.7-16.6); Lymphocytes # 0.8 10^3/uL (0.8-4.8); Lymphocytes % 9.5 %; Mean Corpuscular HGB Conc 32.3 g/dL (30.0-36.0); Mean Corpuscular Hemoglobin 31.8 pg (28.0-34.0); Mean Corpuscular Volume 98.4 fl (80-94); Mean Platelet Volume 9.7 fL (7.4-10.4); Monocytes % 12.1 %; Neutrophils # 6.44 10^3/uL (1.8-7.7); Neutrophils % 77.2 %; Nucleated Red Blood Cells % 0 %; Platelet Count 233 10^3/cmm (130-400); Red Blood Count 5.16 10^6/uL (4.1-5.3); Red Cell Distribution Width 12.5 % (12.1-15.1); White Blood Count 8.3 10^3/uL (4.0-10.0)
[2021-06-08 11:37] LABS: Bilirubin Urine Neg (Negative); Blood Urine Neg (Negative); Glucose Urine UA Norm (Normal); Ketones Urine Negative (Negative); Leukocyte Esterase Urine Negative (Negative); Nitrate Urine Negative (Negative); Protein Urine Neg (Negative); Urine Appearance Clear (CLEAR); Urine Color Yellow (Yellow); Urobilinogen Urine Norm (Negative); pH Urine 5 (5-7)
--- NOTE | 2021-06-08 11:49 | PC.PHAR ---
PT STATES HE NO LONGER TAKES LISINOPRIL LAST FILLED 02/28/21 90 DS
[2021-06-08 12:08] LABS: Alanine Aminotransferase 16 U/L (0-41); Albumin Level 3.8 g/dL (3.5-5.2); Alkaline Phosphatase 112 IU/L (40-130); Anion Gap 12.2 (5-19); Aspartate Amino Transferase 21 U/L (0-40); Blood Urea Nitrogen 15 mg/dL (8-23); Calcium 9.9 mg/dL (8.5-10.5); Carbon Dioxide 26 mmol/L (22-29); Chloride 104 mmol/L (98-107); Globulin 2.5 g/dL (1.3-4.6); Glucose 96 mg/dL (65-115); Osmolality Calculated 287 mOsm/kg (285-295); Potassium 4.2 mmol/L (3.5-5.1); Sodium 138 mmol/L (136-145); Thyroid Stimulating Hormone 1.77 uIU/mL (0.27-4.20); Total Bilirubin 0.4 mg/dL (0.15-1.2); Total Protein 6.3 g/dL (6.6-8.7)
[2021-06-08 12:24] LABS: Lipase 66 U/L (13-60)
[2021-06-08 13:01] VITALS: BP 145/68; PULSE 67; RESP 16; O2SAT 97
[2021-06-08 14:59] VITALS: BP 141/62; PULSE 65; RESP 16; O2SAT 98
== END 2021-06-08 15:01 | disposition home or self-care (01) ==
PROVIDERS: Emergency Provider Emergency Medicine; PCP Family Medicine
DX: R41.3 Other amnesia (principal); R10.9 Unspecified abdominal pain; Z79.82 Long term (current) use of aspirin; Z94.0 Kidney transplant status
CPT/HCPCS: 70450; 80053; 80197; 81003; 83690; 84443; 85025; 96360; 96361; 99284

== ENCOUNTER → 2021-07-31 08:41 | Outpatient (BNVA) | payer MEDICARE, OTHER, SELFPAY | PROVIDERS: PCP Family Medicine; Visit Provider Internal Medicine Nephrology | DX: Z94.0 Kidney transplant status (principal) | CPT/HCPCS: 80053; 80061; 80197; 82248; 84100; 85025; 87798 ==

== ENCOUNTER → 2021-09-05 10:13 | Outpatient (BNVA) | payer MEDICARE, OTHER, SELFPAY | PROVIDERS: PCP Family Medicine; Visit Provider Internal Medicine | DX: Z94.0 Kidney transplant status (principal); Z79.899 Other long term (current) drug therapy | CPT/HCPCS: 80069; 80197; 85025 ==

== ENCOUNTER 2021-09-13 13:42 | Outpatient (CLI) | payer MEDICARE, OTHER, SELFPAY ==
--- NOTE | 2021-09-13 13:55 | XR_ITS ---
WS: [id number] XR KUB [id number] REASON FOR EXAM: LLQ ABDOMINAL PAIN FINDINGS: No free air or retroperitoneal air. Nonspecific bowel gas pattern with multiple nondilated gas-filled small bowel loops. No abnormality is identified in the region of the right pelvic renal transplant. XR/XR KUB [id number] IMPRESSION: No acute abnormality identified.
== END 2021-09-13 13:43 | disposition home or self-care (01) ==
PROVIDERS: PCP Family Medicine; Visit Provider Family Medicine
DX: R10.32 Left lower quadrant pain (principal)
CPT/HCPCS: 74018

== ENCOUNTER 2021-09-14 19:36 | Observation (INO) | payer MEDICARE, OTHER, SELFPAY ==
[2021-09-14 19:51] VITALS: BP 127/89; PULSE 92; RESP 16; TEMP 36.7; O2SAT 96
--- NOTE | 2021-09-14 21:52 | W.ED.GENADLT ---
Documented by User: Romeo Davis DO 09/14/21 22:52 HPI - General Adult General: Chief complaint: Abdominal Pain Stated complaint: body aches/cold chills Time Seen by Provider: 09/14/21 21:41 Source: patient and family (spouse) Mode of arrival: ambulatory Limitations: no limitations History of Present Illness: This patient presents to the emergency department because of generalized body aches and chills that began today. He does not have any specific areas of pain. He states that he is not had documented fevers at home and he is aware. No one else is ill at home. 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 He has not had any cough congestion nausea vomiting diarrhea but has had decreased oral intake today. His is not ill. His did do a COVID test at home which was negative. The patient is fully immunized including all boosters against COVID-19. He does not use tobacco or drink alcohol. He has no history of cardiovascular disease. He has had 2 knee arthroplasties in addition to his kidney transplant. No recent travel. He is taking all his usual antirejection medications. Associated symptoms: Reports decreased appetite and malaise; Deny chest pain, confusion, dyspnea, headache(s), nausea, rash, palpitations or vomiting Review of Systems Const: Reports: chills, body aches, change in appetite and malaise Eyes: Denies: change in vision ENMT: Denies: throat pain, odynophagia, oral sores, dental pain or nasal congestion Card: Denies: chest pain, palpitations or irregular heart rhythm Resp: Denies: dyspnea, productive cough or non-productive cough GI: Denies: abdominal pain, nausea, vomiting or change in bowel habits : Denies: flank pain, difficulty urinating, dysuria or urinary frequency Musc: Reports: joint pain (Left hip pain chronic); Denies: neck pain, back pain or extremity pain Skin/Breast: Denies: rash or pruritus Neuro: Denies: headache(s), numbness in extremities, weakness in extremities, confusion or Slurred speech present Psych: Denies: anxiety or depression Endo: Denies: polyuria or polydipsia [place]/Lymph: Denies: easy bruising or easy bleeding All/Imm: Denies: urticaria PFSH ED PFSH: Medical History Hypercholesteremia Kidney disease Surgical History Kidney transplant recipient Family History Other Diabetes Hypertension Denies family history of CAD (coronary artery disease) Cancer Social History Smoking and tobacco status: never smoked Alcohol intake: never History of recent travel: No Physical Exam Narrative: EXAM NARRATIVE: Patient is alert but somewhat ill-appearing. He answers questions in a goal-directed fashion. Const: COMMON NORMALS: average body habitus, patient oriented x3 and healthy appearing GENERAL APPEARANCE: cooperative and well kempt ORIENTATION/CONSCIOUSNESS: Yes awake HENMT: COMMON NORMALS: normocephalic, atraumatic, Normal nasal mucous membranes and turbinates present and moist oral mucous membranes HEAD & SCALP: normocephalic and atraumatic FACE & SINUS: normal facial exam and sinuses nontender NOSE: Normal nasal mucous membranes and turbinates present Eye: COMMON NORMALS: Equal, round and reactive pupils present, EOMs intact bilaterally and conjunctivae normal CONJUNCTIVA: Yes conjunctivae normal PUPIL: Yes Equal, round and reactive pupils present Neck/C-Spine: COMMON NORMALS: full ROM, no lymphadenopathy, no meningeal signs and no JVD Chest: COMMONS NORMALS: normal inspection of the chest Resp: COMMON NORMALS: normal respiratory effort, No retractions, No use of accessory muscles and clear to auscultation bilaterally AUSCULTATION: clear to auscultation bilaterally Cardio: COMMON NORMALS: no JVD, regular rate, regular rhythm, No murmurs present (Cardio) and Peripheral pulses 2+ throughout RATE: regular rate RHYTHM: regular rhythm PERIPHERAL PULSES: Peripheral pulses 2+ throughout GI: COMMON NORMALS: Normal to inspection, nondistended, normoactive bowel sounds present, Soft to palpation, non-tender and no masses PALPATION: Yes Soft to palpation : COMMON NORMALS: Yes no CVA tenderness BLADDER/KIDNEY EXAM: Yes no CVA tenderness Back/Pelvis: COMMON NORMALS: no CVA tenderness, thoracic and lumbar spine normal to inspection, no thoracic nor lumbar tenderness, thoraco-lumbar ROM normal and straight leg raise negative bilaterally Extremity: COMMON NORMALS: normal to inspection, capillary refill normal, no calf tenderness and no pedal edema NARRATIVE EXTREMITY EXAM: Tenderness over the left greater trochanter to palpation. No erythema. Normal range of motion at all joints including his left hip. Neuro: COMMON NORMALS: patient oriented x3, moves all extremities, no focal motor deficits, no sensory deficits noted and gait normal MENINGEAL SIGNS: Yes no meningeal signs CRANIAL NERVES: Yes CN normal except as noted SPEECH: speech normal Psych: APPEARANCE: Yes well kempt Course Reevaluation(s): Reevaluation #1: Patient was reevaluated. Again to reiterate the history currently is at his symptoms seem to be coincide and with being on the tractor 2 to 3 days ago where he was jostled about and felt some discomfort in his left lower abdomen initially. He was seen by his his doctor who did a plain film and said that there was no evidence of any blockage or any other findings at that time. He states his abdominal pain is improved he is has some soreness in his left hip that he contributes to bouncing around on the tractor as well as their bed being broken down and not as supportive as it has been previously. No other injuries, no nausea vomiting or diarrhea no dysuria etc. He is had a kidney transplant as noted above as well as a open prostatectomy 20 years ago. Repeat examination reveals his abdomen to be soft. Examination of his left hip reveals it to be slightly tender over the greater trochanter. Internal and external rotation of the hip as well as flexion extension hip does not cause any discomfort. There is no erythema of the skin over the hip. Examination of his left knee reveals a well-healed surgical scar. There is no effusion. He has normal range of motion. There is no erythema. With his history of transplant and immune compromise he does not appear to have an obvious source of infection in his knee or hip joint but that always because his symptoms began with abdominal pain we will going proceed with imaging. Time: 22:48 Reevaluation #2: Care will be turned over to Dr. Herndon for final disposition. Time: 22:50 Vital Signs: Vital signs: Vital Signs Temperature 99.0 F 09/16/21 07:37 Pulse Rate 73 09/16/21 07:37 Respiratory Rate 18 09/16/21 07:37 Blood Pressure 127/78 09/16/21 07:37 Pulse Oximetry 94 09/16/21 07:37 [facility] - General Adult Medical Decision Making Patient presented with some history of transient left lower abdominal pain as well as body aches and chills. Notable is that he is status post renal transplant approximately 2-1/2 years. No other constitutional symptoms. His work-up ensued to include evaluation for sources of infection. Medical Records I reviewed the patient's medical records. Lab Data : 09/16/21 04:00 09/16/21 04:00 Radiology Impressions Abdomen/Pelvis CT 09/14/21 22:48 IMPRESSION: 1. Findings consistent with acute diverticulitis of the distal descending colon are noted. No associated diverticular perforation or pericolonic abscess. 2. End-stage [place] kidneys with right lower quadrant transplant graft. The graft is morphologically normal. 3. Small left inguinal hernia noted, containing only fat. COMMENTS: Consistent with the [employer]'s Incidental Findings Committee white paper (J Am Ryan Radiol 2018): Any incidental renal lesion less than 1 cm or classified as too small to characterize, or any incidental cystic renal lesion characterized as simple-appearing, is likely benign. No follow-up imaging is recommended for these lesions per consensus recommendations based on imaging criteria. Knee X-Ray 09/15/21 00:56 IMPRESSION: 1. No acute abnormality demonstrated. 2. Previous left knee arthroplasty. 3. Small suprapatellar osteophyte or osteochondral body. Laboratory Results WBC 16.2 10^3/uL (4.0-10.0) H 09/14/21 22:05 RBC 5.02 10^6/uL (4.1-5.3) 09/14/21 22:05 Hgb 15.8 g/dL (11.7-16.6) 09/14/21 22:05 Hct 46.8 % (42.0-52.0) 09/14/21 22:05 MCV 93.2 fl (80-94) 09/14/21 22:05 MCH 31.5 pg (28.0-34.0) 09/14/21 22:05 MCHC 33.8 g/dL (30.0-36.0) 09/14/21 22:05 RDW 12.3 % (12.1-15.1) 09/14/21 22:05 Plt Count 183 10^3/cmm (130-400) 09/14/21 22:05 MPV 11.4 fL (7.4-10.4) H 09/14/21 22:05 Neut % (Auto) 78.6 % 09/14/21 22:05 Lymph % (Auto) 6.3 % 09/14/21 22:05 [place] % (Auto) 14.1 % 09/14/21 22:05 Eos % (Auto) 0.1 % 09/14/21 22:05 Baso % (Auto) 0.2 % 09/14/21 22:05 Neut # (Auto) 12.75 10^3/uL (1.8-7.7) H 09/14/21 22:05 Lymph # (Auto) 1.0 10^3/uL (0.8-4.8) 09/14/21 22:05 [place] # (Auto) 2.3 10^3/uL (0.2-0.9) H 09/14/21 22:05 Eos # (Auto) 0.0 10^3/uL (0.0-0.8) 09/14/21 22:05 Baso # (Auto) 0.0 10^3/uL (0.0-0.1) 09/14/21 22:05 Nucleated RBC % (auto) 0 % 09/14/21 22:05 Nucleated RBCs # 0.0 /100WBC 09/14/21 22:05 Sodium 130 mmol/L (136-145) L 09/14/21 22:30 Potassium 4.2 mmol/L (3.5-5.1) 09/14/21 22:30 Chloride 97 mmol/L (98-107) L 09/14/21 22:30 Carbon Dioxide 22 mmol/L (22-29) 09/14/21 22:30 Anion Gap 15.2 (5-19) 09/14/21 22:30 BUN 14 mg/dL (8-23) 09/14/21 22:30 Creatinine 1.0 mg/dL (0.7-1.2) 09/14/21 22:30 GFR Calculation Not Reportable 09/14/21 22:30 Glucose 100 mg/dL (65-115) 09/14/21 22:30 Calculated Osmolality 271 mOsm/kg (285-295) L 09/14/21 22:30 Calcium 9.0 mg/dL (8.5-10.5) 09/14/21 22:30 Total Bilirubin 0.9 mg/dL (0.15-1.2) 09/14/21 22:30 AST 23 U/L (0-40) 09/14/21 22:30 ALT 13 U/L (0-41) 09/14/21 22:30 Alkaline Phosphatase 89 IU/L (40-130) 09/14/21 22:30 Total Protein 6.3 g/dL (6.6-8.7) L 09/14/21 22:30 Albumin 3.4 g/dL (3.5-5.2) L 09/14/21 22:30 Globulin 2.9 g/dL (1.3-4.6) 09/14/21 22:30 Urine Color Yellow (Yellow) 09/14/21 22:10 Urine Appearance Clear (CLEAR) 09/14/21 22:10 Urine pH 5 (5-7) 09/14/21 22:10 Ur Specific [place] 1.010 (1.005-1.030) 09/14/21 22:10 Urine Protein Neg (Negative) 09/14/21 22:10 Urine Glucose (UA) Norm (Normal) 09/14/21 22:10 Urine Ketones 1+ (Negative) H 09/14/21 22:10 Urine Blood Neg (Negative) 09/14/21 22:10 Urine Nitrate Negative (Negative) 09/14/21 22:10 Urine Bilirubin Neg (Negative) 09/14/21 22:10 Urine Urobilinogen Norm mg/dL (Negative) 09/14/21 22:10 Ur Leukocyte Esterase Negative (Negative) 09/14/21 22:10 Influenza Type A Ag Negative (Negative) 09/15/21 00:09 Influenza Type B Ag Negative (Negative) 09/15/21 00:09 SARS-CoV-2 Ag (Rapid) Negative (Negative) 09/14/21 22:15 Discharge Plan Discharge Patient Disposition: Placed in Observation Admit Provider: Brooklyn Chase Clinical Impression: Diverticulitis Discharge Diet: Advance as tolerated and Soft Mechanical Discharge Activity: Resume usual activity and Increase activity as tolerated Coding Level of Care Code ED Field Control Inspector for Chg Fwd Exam Comprehensive Documented by User: Raman Herndon MD 09/22/21 01:30 HPI - General Adult General: Chief complaint: Abdominal Pain Stated complaint: body aches/cold chills Time Seen by Provider: 09/14/21 21:41 PFSH ED PFSH: Medical History Hypercholesteremia Kidney disease Surgical History Kidney transplant recipient Family History Other Diabetes Hypertension Denies family history of CAD (coronary artery disease) Cancer Social History Smoking and tobacco status: never smoked Alcohol intake: never History of recent travel: No Course Vital Signs: Vital signs: Vital Signs Temperature 99.0 F 09/16/21 07:37 Pulse Rate 73 09/16/21 07:37 Respiratory Rate 18 09/16/21 07:37 Blood Pressure 127/78 09/16/21 07:37 Pulse Oximetry 94 09/16/21 07:37 MDM - General Adult Medical Decision Making Patient presented with some history of transient left lower abdominal pain as well as body aches and chills. Notable is that he is status post renal transplant approximately 2-1/2 years. No other constitutional symptoms. His work-up ensued to include evaluation for sources of infection. Patient care handoff received from Dr. Davis pending completion of ED evaluation. Labs notable for leukocytosis. Evidence of dehydration on metabolic panel. Renal functions preserved. No evidence of urinary infection. CT abdomen and pelvis notable for acute diverticulitis. Antibiotics given. Additional analgesia given. Given medical history, clinical appearance, laboratory and imaging studies I believe that observation in the hospital is appropriate to ensure that patient condition does not significantly deteriorate. The patient is on immunosuppressants which increases risk. Discussed results of ED evaluation and proposed plan with patient. He is agreeable to admission. Discussed with hospitalist service physician Dr. Chase. Patient admitted in satisfactory condition. Raman Herndon MD Emergency Medicine Lab Data : 09/16/21 04:00 09/16/21 04:00 Radiology Impressions Abdomen/Pelvis CT 09/14/21 22:48 IMPRESSION: 1. Findings consistent with acute diverticulitis of the distal descending colon are noted. No associated diverticular perforation or pericolonic abscess. 2. End-stage [place] kidneys with right lower quadrant transplant graft. The graft is morphologically normal. 3. Small left inguinal hernia noted, containing only fat. COMMENTS: Consistent with the [employer]'s Incidental Findings Committee white paper (J Am Ryan Radiol 2018): Any incidental renal lesion less than 1 cm or classified as too small to characterize, or any incidental cystic renal lesion characterized as simple-appearing, is likely benign. No follow-up imaging is recommended for these lesions per consensus recommendations based on imaging criteria. Knee X-Ray 09/15/21 00:56 IMPRESSION: 1. No acute abnormality demonstrated. 2. Previous left knee arthroplasty. 3. Small suprapatellar osteophyte or osteochondral body. Laboratory Results WBC 16.2 10^3/uL (4.0-10.0) H 09/14/21 22:05 RBC 5.02 10^6/uL (4.1-5.3) 09/14/21 22:05 Hgb 15.8 g/dL (11.7-16.6) 09/14/21 22:05 Hct 46.8 % (42.0-52.0) 09/14/21 22:05 MCV 93.2 fl (80-94) 09/14/21 22:05 MCH 31.5 pg (28.0-34.0) 09/14/21 22:05 MCHC 33.8 g/dL (30.0-36.0) 09/14/21 22:05 RDW 12.3 % (12.1-15.1) 09/14/21 22:05 Plt Count 183 10^3/cmm (130-400) 09/14/21 22:05 MPV 11.4 fL (7.4-10.4) H 09/14/21 22:05 Neut % (Auto) 78.6 % 09/14/21 22:05 Lymph % (Auto) 6.3 % 09/14/21 22:05 [place] % (Auto) 14.1 % 09/14/21 22:05 Eos % (Auto) 0.1 % 09/14/21 22:05 Baso % (Auto) 0.2 % 09/14/21 22:05 Neut # (Auto) 12.75 10^3/uL (1.8-7.7) H 09/14/21 22:05 Lymph # (Auto) 1.0 10^3/uL (0.8-4.8) 09/14/21 22:05 [place] # (Auto) 2.3 10^3/uL (0.2-0.9) H 09/14/21 22:05 Eos # (Auto) 0.0 10^3/uL (0.0-0.8) 09/14/21 22:05 Baso # (Auto) 0.0 10^3/uL (0.0-0.1) 09/14/21 22:05 Nucleated RBC % (auto) 0 % 09/14/21 22:05 Nucleated RBCs # 0.0 /100WBC 09/14/21 22:05 Sodium 130 mmol/L (136-145) L 09/14/21 22:30 Potassium 4.2 mmol/L (3.5-5.1) 09/14/21 22:30 Chloride 97 mmol/L (98-107) L 09/14/21 22:30 Carbon Dioxide 22 mmol/L (22-29) 09/14/21 22:30 Anion Gap 15.2 (5-19) 09/14/21 22:30 BUN 14 mg/dL (8-23) 09/14/21 22:30 Creatinine 1.0 mg/dL (0.7-1.2) 09/14/21 22:30 GFR Calculation Not Reportable 09/14/21: Glucose 100 mg/dL (65-115) 09/14/21 22:30 Calculated Osmolality 271 mOsm/kg (285-295) L 09/14/21 22:30 Calcium 9.0 mg/dL (8.5-10.5) 09/14/21 22:30 Total Bilirubin 0.9 mg/dL (0.15-1.2) 09/14/21 22:30 AST 23 U/L (0-40) 09/14/21 22:30 ALT 13 U/L (0-41) 09/14/21 22:30 Alkaline Phosphatase 89 IU/L (40-130) 09/14/21 22:30 Total Protein 6.3 g/dL (6.6-8.7) L 09/14/21 22:30 Albumin 3.4 g/dL (3.5-5.2) L 09/14/21 22:30 Globulin 2.9 g/dL (1.3-4.6) 09/14/21 22:30 Urine Color Yellow (Yellow) 09/14/21 22:10 Urine Appearance Clear (CLEAR) 09/14/21 22:10 Urine pH 5 (5-7) 09/14/21 22:10 Ur Specific [place] 1.010 (1.005-1.030) 09/14/21 22:10 Urine Protein Neg (Negative) 09/14/21 22:10 Urine Glucose (UA) Norm (Normal) 09/14/21 22:10 Urine Ketones 1+ (Negative) H 09/14/21 22:10 Urine Blood Neg (Negative) 09/14/21 22:10 Urine Nitrate Negative (Negative) 09/14/21 22:10 Urine Bilirubin Neg (Negative) 09/14/21 22:10 Urine Urobilinogen Norm mg/dL (Negative) 09/14/21 22:10 Ur Leukocyte Esterase Negative (Negative) 09/14/21 22:10 Influenza Type A Ag Negative (Negative) 09/15/21 00:09 Influenza Type B Ag Negative (Negative) 09/15/21 00:09 SARS-CoV-2 Ag (Rapid) Negative (Negative) 09/14/21 22:15 Discharge Plan Discharge Patient Disposition: Placed in Observation Admit Provider: Brooklyn Chase Clinical Impression: Diverticulitis Discharge Diet: Advance as tolerated and Soft Mechanical Discharge Activity: Resume usual activity and Increase activity as tolerated Coding Level of Care Code ED Field Control Inspector for Chg Fwd Exam Comprehensive
[2021-09-14 21:54] VITALS: BP 148/94; PULSE 77; RESP 20; TEMP 37.1; O2SAT 97
[2021-09-14] MEDS: fentaNYL 50 mcg/mL INJ 2mL IVP (22:13)
[2021-09-14 22:17] LABS: Basophils % 0.2 %; Eosinophils % 0.1 %; Hematocrit 46.8 % (42.0-52.0); Hemoglobin 15.8 g/dL (11.7-16.6); Lymphocytes % 6.3 %; Mean Corpuscular HGB Conc 33.8 g/dL (30.0-36.0); Mean Corpuscular Hemoglobin 31.5 pg (28.0-34.0); Mean Corpuscular Volume 93.2 fl (80-94); Mean Platelet Volume 11.4 fL (7.4-10.4); Monocytes # 2.3 10^3/uL (0.2-0.9); Monocytes % 14.1 %; Neutrophils # 12.75 10^3/uL (1.8-7.7); Neutrophils % 78.6 %; Nucleated Red Blood Cells % 0 %; Platelet Count 183 10^3/cmm (130-400); Red Blood Count 5.02 10^6/uL (4.1-5.3); Red Cell Distribution Width 12.3 % (12.1-15.1); White Blood Count 16.2 10^3/uL (4.0-10.0)
[2021-09-14] MEDS: sodium chloride 0.9% 1,000 ML 999 ML IV (22:24)
--- NOTE | 2021-09-14 22:48 | CTR_ITS ---
PROCEDURE INFORMATION: Exam: CT Abdomen And Pelvis Without Contrast Exam date and time: 09/14/2021 10:58 PM Age: 71 years old Clinical indication: Abdominal pain; Localized; Left lower quadrant (llq); Patient HX: achy all over ; Additional info: Left lower abd pain TECHNIQUE: Imaging protocol: Computed tomography of the abdomen and pelvis without contrast. Radiation optimization: All CT scans at this facility use at least one of these dose optimization techniques: automated exposure control; mA and/or kV adjustment per patient size (includes targeted exams where dose is matched to clinical indication); or iterative reconstruction. COMPARISON: CT abdomen pelvis wo con [id number] 06/05/2021 12:57 AM RADIATION DOSE METRICS: Total DLP (mGy-cm): FINDINGS: Lungs: The lung bases appear unremarkable. Liver: The liver is unremarkable in appearance. Gallbladder and bile ducts: No calcified gallstones in the gallbladder. No gallbladder wall thickening. No pericholecystic fluid. No biliary dilatation. Pancreas: The pancreas is normal in appearance. No pancreatic duct dilatation. Spleen: The spleen is normal in size and appearance. Adrenal glands: The adrenal glands appear within normal limits. Kidneys and ureters: Severe cortical atrophy of the kidneys, consistent with end-stage renal disease. Simple appearing bilateral renal cysts noted, measuring up to 3.2 cm. No hydronephrosis. Ureters appear normal. No obstructive uropathy. Right lower quadrant renal transplant graft noted. The graft is normal in morphology. No hydronephrosis. No fluid collection in the area of the graft. Stomach and bowel: There is diverticulosis of the descending colon. Pericolonic inflammation is noted surrounding the distal portion of the descending colon, consistent with acute diverticulitis. There is no associated abscess. No acute gastric abnormality demonstrated. The small bowel is unremarkable as demonstrated. Appendix: No evidence of appendicitis. Normal appendix demonstrated. Intraperitoneal space: No pneumoperitoneum. No significant fluid collection. Vasculature: The aorta is atherosclerotic. No aortic aneurysm. Lymph nodes: No pathologically enlarged lymph nodes. Urinary bladder: The urinary bladder is unremarkable in appearance. Reproductive: Unremarkable as visualized. Bones/joints: Degenerative spine changes are noted. No fracture or other acute osseous abnormality. Soft tissues: Small left inguinal hernia noted, containing only fat. CT/CT abdomen pelvis wo con [id number] IMPRESSION: 1. Findings consistent with acute diverticulitis of the distal descending colon are noted. No associated diverticular perforation or pericolonic abscess. 2. End-stage [place] kidneys with right lower quadrant transplant graft. The graft is morphologically normal. 3. Small left inguinal hernia noted, containing only fat. COMMENTS: Consistent with the [employer]'s Incidental Findings Committee white paper (J Am Ryan Radiol 2018): Any incidental renal lesion less than 1 cm or classified as too small to characterize, or any incidental cystic renal lesion characterized as simple-appearing, is likely benign. No follow-up imaging is recommended for these lesions per consensus recommendations based on imaging criteria.
[2021-09-14 22:54] LABS: Albumin Level 3.4 g/dL (3.5-5.2); Alkaline Phosphatase 89 IU/L (40-130); Blood Urea Nitrogen 14 mg/dL (8-23); Carbon Dioxide 22 mmol/L (22-29); Chloride 97 mmol/L (98-107); Globulin 2.9 g/dL (1.3-4.6); Glucose 100 mg/dL (65-115); Osmolality Calculated 271 mOsm/kg (285-295); Sodium 130 mmol/L (136-145); Total Bilirubin 0.9 mg/dL (0.15-1.2); Total Protein 6.3 g/dL (6.6-8.7)
[2021-09-14 23:02] LABS: Alanine Aminotransferase 13 U/L (0-41); Anion Gap 15.2 (5-19); Aspartate Amino Transferase 23 U/L (0-40); Potassium 4.2 mmol/L (3.5-5.1)
[2021-09-14 23:12] VITALS: BP 138/92; PULSE 90; RESP 22; O2SAT 95
[2021-09-14 23:13] LABS: Add Urine Microscopic? NO; Charge for UA Resulting for Rev
[2021-09-14 23:17] LABS: Bilirubin Urine Neg (Negative); Blood Urine Neg (Negative); Glucose Urine UA Norm (Normal); Ketones Urine 1+ (Negative); Leukocyte Esterase Urine Negative (Negative); Nitrate Urine Negative (Negative); Protein Urine Neg (Negative); Urine Appearance Clear (CLEAR); Urine Color Yellow (Yellow); Urobilinogen Urine Norm (Negative); pH Urine 5 (5-7)
[2021-09-14 23:34] LABS: SARS Covid-2 Antigen Negative (Negative)
[2021-09-15] VITALS (13 sets, daily range): BP systolic 80–152; BP diastolic 51–95; PULSE 60–95; RESP 16–26; TEMP 36.5–38.7; O2SAT 93–97
[2021-09-15] MEDS: fentaNYL 50 mcg/mL INJ 2mL IVP (00:29)
[2021-09-15 00:53] LABS: Influenza A by IFA Negative (Negative); Influenza B by IFA Negative (Negative)
--- NOTE | 2021-09-15 00:56 | XRR_ITS ---
PROCEDURE INFORMATION: Exam: XR Left Knee Exam date and time: 09/15/2021 1:16 AM Age: 71 years old Clinical indication: Pain; Knee; Left; Prior surgery; Surgery date: 6+ months; Surgery type: Replacement; Patient HX: No injury. Nothing acute. sometimes it swells ; Additional info: Knee pain, HX transplant TECHNIQUE: Imaging protocol: Radiologic exam of the Left knee. Views: 3 views. COMPARISON: No relevant prior studies available. FINDINGS: Bones/joints: No acute osseous abnormality. Previous left knee arthroplasty with metallic hardware in place. No dislocation. Small suprapatellar osteophyte or osteochondral body. Soft tissues: No significant soft tissue abnormalities. Vasculature: Atherosclerotic vascular calcification. XR/XR knee LT 3V* [id number] IMPRESSION: 1. No acute abnormality demonstrated. 2. Previous left knee arthroplasty. 3. Small suprapatellar osteophyte or osteochondral body.
[2021-09-15] MEDS: acetaminophen 500 mg Tablet 1000 MG PO (01:46)
[2021-09-15] MEDS: ketorolac 30 mg/mL INJ 15 MG IVP (01:47)
[2021-09-15] MEDS: ciprofloxacin 400 MG/200 ML PREMIX 200 MG IV ×2 (01:49→14:01)
--- NOTE | 2021-09-15 02:20 | P.HP_ITS ---
Providers/Chief Complaint Admitting Physician: Brooklyn Chase MD Primary Care Provider: Clint Higgins MD Chief Complaint: body aches/cold chills History of Present Illness Aman Musa is a 71 year old male with a past medical history of kidney transplant currently on tacrolimus and mycophenolate presenting today with 3 to 4 days of complaints of abdominal discomfort, describes as as being on the left side of his abdomen. Feeling is described as sore, 40 5 out of 10. Addit ionally has felt generally sore all over. Presented to the emergency room for these complaints. Underwent CT of the abdomen and pelvis which showed diverticulitis. Patient has had 1 episode of diarrhea today. No complains of vomiting. No fever Review of systems positive for left knee pain. Patient states he has had bilateral knee replacement, his left knee is usually swollen at a baseline, h owever after waiting in the emergency room for approximately 2 hours it has started to hurt. He attributes this to prolonged sitting in 1 position. Review of Systems General: Reports: 10 or more systems reviewed and unremarkable except in HPI and below Const: Denies: fever(s), chills or body aches Eyes: Denies: change in vision, blurry vision or photophobia ENMT: Reports: hoarseness; Denies: throat pain, enlarged tonsils, odynophagia or nasal congestion Card: Denies: chest pain, palpitations, irregular heart rhythm, edema, swelling of feet/ankles, lightheadedness, pre-syncope, dyspnea on exertion or orthopnea Resp: Denies: dyspnea, productive cough, non-productive cough, wheezing, stridor, pain on inspiration, change in phlegm color, hemoptysis or chest con gestion GI: Denies: abdominal pain, nausea, vomiting, hematemesis, coffee ground emesis, dysphagia, heartburn, diarrhea, constipation, GI cramping, change in stool character, hematochezia or melena : Denies: flank pain, dysuria, urinary frequency, urinary urgency, urinary hesitancy or hematuria Musc: Denies: neck pain, back pain, extremity pain, joint swelling, joint warmth or deformity Neuro: Denies: headache(s), numbness in extremities, weakness in extremities, sensory changes, difficulty walking, frequent falls, dizziness, vertigo, behavioral changes, Slurred speech present or seizure-like activity Psych: Denies: anxiety, depression, suicidal ideation or homicidal ideation Endo: Denies: polyuria, polydipsia, tired all the time, cold intolerance or hot flashes [place]/Lymph: Denies: easy bruising or easy bleeding Medications/Allergies Home Medications Medication Instructions Recorded Confirmed Last Taken Type atorvastatin 10 mg tablet 10 mg PO DAILY@0909/29/19 09/15/21 06/08/21 History cholecalciferol (vitamin D3) 50 50 mcg PO DAILY@89909/29/19 09/15/21 06/08/21 History mcg (2,000 unit) capsule (Vitamin D3) tacrolimus 1 mg tablet,extended 1 mg PO DAILY tab 09/29/19 09/15/21 06/08/21 History release 24 hr (Envarsus XR) aspirin 81 mg tablet,delayed 81 mg PO DAILY@0906/15/20 09/15/21 06/08/21 History release mycophenolate sodium 360 mg 360 mg PO BID 06/15/20 09/15/21 06/08/21 History tablet,delayed release prednisone 5 mg tablet 5 mg PO DAILY 09/15/21 09/15/21 Unknown History temazepam 30 mg capsule 30 mg PO BEDTIME 09/15/21 09/15/21 Unknown History Allergies Allergy/AdvReac Type Severity Reaction Status Date / Time No Known Allergies Allergy Verified 09/14/21 19:54 PFSH Acute PFSH: Medical History Hypercholesteremia Kidney disease Surgical History Kidney transplant recipient Family History Other Diabetes Hypertension Denies family history of CAD (coronary artery disease) Cancer Social History Smoking and tobacco status: never smoked Alcohol intake: never History of recent travel: No Vitals/I&O/Wt Last Vital Signs Temp 99.0 F 09/15/21 01:54 Pulse 89 09/15/21 01:54 Resp 21 H 09/15/21 01:54 BP 138/85 09/15/21 01:54 Pulse Ox 95 09/15/21 01:54 09/14/21 09/14/21 09/15/21 14:59 22:59 06:59 Intake Total 1000 / 1000 Output Total 300 / 300 Balance 700 / 700 Weight last 48 hrs Weight 81.647 kg Physical Exam Narrative: GEN: Awake, alert and oriented, no acute distress CVS: S1S2 N RS: CTA B/L Abd: Tenderness to palpation over left lower quadrant PROJECT CONTROL ANALYST: no focal neuro deficits Extremities no edema clubbing or cyanosis Data : 09/14/21 22:05 09/14/21 22:30 Other Labs: Radiology Impressions Abdomen/Pelvis CT 09/14/21 22:48 IMPRESSION: 1. Findings consistent with acute diverticulitis of the distal descending colon are noted. No associated diverticular perforation or pericolonic abscess. 2. End-stage [place] kidneys with right lower quadrant transplant graft. The graft is morphologically normal. 3. Small left inguinal hernia noted, containing only fat. COMMENTS: Consistent with the [employer]'s Incidental Findings Committee white paper (J Am Ryan Radiol 2018): Any incidental renal lesion less than 1 cm or classified as too small to characterize, or any incidental cystic renal lesion characterized as simple-appearing, is likely benign. No follow-up imaging is recommended for these lesions per consensus recommendations based on imaging criteria. Laboratory Results WBC 16.2 10^3/uL (4.0-10.0) H 09/14/21 22:05 RBC 5.02 10^6/uL (4.1-5.3) 09/14/21 22:05 Hgb 15.8 g/dL (11.7-16.6) 09/14/21 22:05 Hct 46.8 % (42.0-52.0) 09/14/21 22:05 MCV 93.2 fl (80-94) 09/14/21 22:05 MCH 31.5 pg (28.0-34.0) 09/14/21 22:05 MCHC 33.8 g/dL (30.0-36.0) 09/14/21 22:05 RDW 12.3 % (12.1-15.1) 09/14/21 22:05 Plt Count 183 10^3/cmm (130-400) 09/14/21 22:05 MPV 11.4 fL (7.4-10.4) H 09/14/21 22:05 Neut % (Auto) 78.6 % 09/14/21 22:05 Lymph % (Auto) 6.3 % 09/14/21 22:05 [place] % (Auto) 14.1 % 09/14/21 22:05 Eos % (Auto) 0.1 % 09/14/21 22:05 Baso % (Auto) 0.2 % 09/14/21 22:05 Neut # (Auto) 12.75 10^3/uL (1.8-7.7) H 09/14/21 22:05 Lymph # (Auto) 1.0 10^3/uL (0.8-4.8) 09/14/21 22:05 [place] # (Auto) 2.3 10^3/uL (0.2-0.9) H 09/14/21 22:05 Eos # (Auto) 0.0 10^3/uL (0.0-0.8) 09/14/21 22:05 Baso # (Auto) 0.0 10^3/uL (0.0-0.1) 09/14/21 22:05 Nucleated RBC % (auto) 0 % 09/14/21 22:05 Nucleated RBCs # 0.0 /100WBC 09/14/21 22:05 Sodium 130 mmol/L (136-145) L 09/14/21:30 Potassium 4.2 mmol/L (3.5-5.1) 09/14/21 22:30 Chloride 97 mmol/L (98-107) L 09/14/21:30 Carbon Dioxide 22 mmol/L (22-29) 09/14/21 22:30 Anion Gap 15.2 (5-19) 09/14/21 22:30 BUN 14 mg/dL (8-23) 09/14/21 22:30 Creatinine 1.0 mg/dL (0.7-1.2) 09/14/21 22:30 GFR Calculation Not Reportable 09/14/21: Glucose 100 mg/dL (65-115) 09/14/21 22:30 Calculated Osmolality 271 mOsm/kg (285-295) L 09/14/21:30 Calcium 9.0 mg/dL (8.5-10.5) 09/14/21 22:30 Total Bilirubin 0.9 mg/dL (0.15-1.2) 09/14/21 22:30 AST 23 U/L (0-40) 09/14/21 22:30 ALT 13 U/L (0-41) 09/14/21 22:30 Alkaline Phosphatase 89 IU/L (40-130) 09/14/21 22:30 Total Protein 6.3 g/dL (6.6-8.7) L 09/14/21 22:30 Albumin 3.4 g/dL (3.5-5.2) L 09/14/21 22:30 Globulin 2.9 g/dL (1.3-4.6) 09/14/21 22:30 Urine Color Yellow (Yellow) 09/14/21 22:10 Urine Appearance Clear (CLEAR) 09/14/21 22:10 Urine pH 5 (5-7) 09/14/21 22:10 Ur Specific [place] 1.010 (1.005-1.030) 09/14/21 22:10 Urine Protein Neg (Negative) 09/14/21 22:10 Urine Glucose (UA) Norm (Normal) 09/14/21 22:10 Urine Ketones 1+ (Negative) H 09/14/21 22:10 Urine Blood Neg (Negative) 09/14/21 22:10 Urine Nitrate Negative (Negative) 09/14/21 22:10 Urine Bilirubin Neg (Negative) 09/14/21 22:10 Urine Urobilinogen Norm mg/dL (Negative) 09/14/21 22:10 Ur Leukocyte Esterase Negative (Negative) 09/14/21 22:10 Influenza Type A Ag Negative (Negative) 09/15/21 00:09 Influenza Type B Ag Negative (Negative) 09/15/21 00:09 SARS-CoV-2 Ag (Rapid) Negative (Negative) 09/14/21 22:15 Micro: Microbiology 09/14/21 22:01 Blood Culture - Preliminary Blood SPECIMEN COLLECTED 09/14/21 22:05 Blood Culture - Preliminary Blood SPECIMEN COLLECTED A&P Assessment and plan (1) Diverticulitis: Diverticulitis of the distal descending without diverticular perforation or pericolonic abscess. Bowel rest, NPO except sips, chips and meds Iv ciprofloxacin and metronidazole for empiric treatment IVf d5NS @ 75cc/hr Status: Acute (2) Knee pain: left knee pain which started 2 hrs ago- patient states left knee is usually swollen compared to right- does not appear to be more swollen today. there is no associated erythema, warmth or tenderness. Low suspicion for septic arthritis at this time. Per patient he has occasinal flares with prolonged sitting as he did today. Will obtain knee x ray. Status: Acute Plan # s/p renal transplant: continue tacrolimus and MMF Attestations Medical Necessity Statement*: anticipate less than 2 midnight stay for above defined care Coding Level of Care Code Acute Geophysical Party Chief for [facility] [employer] [employer] [facility] [employer] [facility] Diagnoses Diverticulitis K57.92 Knee pain M25.569
[2021-09-15] MEDS: oxyCODONE-APAP 5-325 mg Tablet 1 TAB PO ×3 (02:48→20:55)
[2021-09-15] MEDS: temazepam 15 mg Capsule 30 MG PO ×2 (02:48→22:01)
[2021-09-15] MEDS: dextrose 5%-sod chloride 0.9% 1,000 ML 75 ML IV ×2 (02:49→22:02)
[2021-09-15] MEDS: metroNIDAZOLE IV 500 MG/100 ML PREMIX 100 MG IV ×3 (02:54→17:42)
[2021-09-15] MEDS: sodium chloride 0.9% 500 ML 999 ML IV ×2 (04:22→06:16)
[2021-09-15 05:18] LABS: Basophils % 0.2 %; Eosinophils % 0.3 %; Hematocrit 41.3 % (42.0-52.0); Hemoglobin 13.3 g/dL (11.7-16.6); Lymphocytes # 0.7 10^3/uL (0.8-4.8); Lymphocytes % 5.8 %; Mean Corpuscular HGB Conc 32.2 g/dL (30.0-36.0); Mean Corpuscular Hemoglobin 30.4 pg (28.0-34.0); Mean Corpuscular Volume 94.5 fl (80-94); Mean Platelet Volume 9.6 fL (7.4-10.4); Monocytes # 1.7 10^3/uL (0.2-0.9); Monocytes % 13.5 %; Neutrophils # 9.71 10^3/uL (1.8-7.7); Neutrophils % 79.5 %; Nucleated Red Blood Cells % 0 %; Platelet Count 173 10^3/cmm (130-400); Red Blood Count 4.37 10^6/uL (4.1-5.3); Red Cell Distribution Width 12.1 % (12.1-15.1); White Blood Count 12.2 10^3/uL (4.0-10.0)
[2021-09-15 05:34] LABS: Alanine Aminotransferase 10 U/L (0-41); Albumin Level 2.6 g/dL (3.5-5.2); Alkaline Phosphatase 68 IU/L (40-130); Anion Gap 10.9 (5-19); Aspartate Amino Transferase 14 U/L (0-40); Blood Urea Nitrogen 13 mg/dL (8-23); Calcium 8.5 mg/dL (8.5-10.5); Carbon Dioxide 23 mmol/L (22-29); Chloride 101 mmol/L (98-107); Globulin 2.1 g/dL (1.3-4.6); Glucose 120 mg/dL (65-115); Osmolality Calculated 273 mOsm/kg (285-295); Potassium 3.9 mmol/L (3.5-5.1); Sodium 131 mmol/L (136-145); Total Bilirubin 0.7 mg/dL (0.15-1.2); Total Protein 4.7 g/dL (6.6-8.7)
[2021-09-15] MEDS: acetaminophen 325 mg Tablet 650 MG PO (09:04)
[2021-09-15] MEDS: pantoprazole DR 40 mg Tablet PO (09:43)
[2021-09-15] MEDS: atorvastatin 40 mg Tablet 10 MG PO (09:43)
[2021-09-15] MEDS: aspirin 81 mg EC Tablet PO (09:44)
[2021-09-15] MEDS: predniSONE 5 mg Tablet PO (09:44)
--- NOTE | 2021-09-15 14:35 | PM.MISC ---
Miscellaneous Note Purpose of Documentation: Patient seen today morning with family at bedside. States feeling a lot better. States abdominal pain is better. Denies any nausea, vomiting, headache. States last bowel movement was prior to coming to the hospital and it was diarrhea. States he is hungry. Plan: Continue with IV hydration, IV antibiotics including ciprofloxacin material. Stool studies. Start on GI soft diet. For left knee pain: X-rays reviewed. Tylenol as needed. Ice pack.
[2021-09-16] VITALS: BP 101/66; PULSE 70; RESP 18; TEMP 37.2; O2SAT 92
[2021-09-16] MEDS: ciprofloxacin 400 MG/200 ML PREMIX 200 MG IV (01:15)
[2021-09-16] MEDS: metroNIDAZOLE IV 500 MG/100 ML PREMIX 100 MG IV ×2 (02:20→10:39)
[2021-09-16] MEDS: dextrose 5%-sod chloride 0.9% 1,000 ML 75 ML IV (03:58)
[2021-09-16 04:00] VITALS: BP 99/56; PULSE 65; RESP 18; TEMP 37.2; O2SAT 93
[2021-09-16 04:08] LABS: Basophils % 0.2 %; Eosinophils # 0.1 10^3/uL (0.0-0.8); Eosinophils % 0.5 %; Hematocrit 43.4 % (42.0-52.0); Hemoglobin 14.2 g/dL (11.7-16.6); Lymphocytes # 0.7 10^3/uL (0.8-4.8); Lymphocytes % 7.6 %; Mean Corpuscular HGB Conc 32.7 g/dL (30.0-36.0); Mean Corpuscular Hemoglobin 31.1 pg (28.0-34.0); Mean Platelet Volume 9.6 fL (7.4-10.4); Monocytes # 1.4 10^3/uL (0.2-0.9); Monocytes % 15.1 %; Neutrophils # 7.11 10^3/uL (1.8-7.7); Neutrophils % 75.9 %; Nucleated Red Blood Cells % 0 %; Platelet Count 195 10^3/cmm (130-400); Red Blood Count 4.57 10^6/uL (4.1-5.3); Red Cell Distribution Width 12.3 % (12.1-15.1); White Blood Count 9.4 10^3/uL (4.0-10.0)
[2021-09-16 04:30] LABS: Alanine Aminotransferase 10 U/L (0-41); Albumin Level 2.9 g/dL (3.5-5.2); Alkaline Phosphatase 72 IU/L (40-130); Anion Gap 10.5 (5-19); Aspartate Amino Transferase 16 U/L (0-40); Blood Urea Nitrogen 12 mg/dL (8-23); Calcium 8.6 mg/dL (8.5-10.5); Carbon Dioxide 25 mmol/L (22-29); Chloride 104 mmol/L (98-107); Globulin 2.4 g/dL (1.3-4.6); Glucose 97 mg/dL (65-115); Osmolality Calculated 280 mOsm/kg (285-295); Potassium 4.5 mmol/L (3.5-5.1); Sodium 135 mmol/L (136-145); Total Bilirubin 0.6 mg/dL (0.15-1.2); Total Protein 5.3 g/dL (6.6-8.7)
[2021-09-16 04:34] LABS: Lactic Sepsis W/Reflex 0.7 mmol/L (0.5-2.2)
[2021-09-16 07:37] VITALS: BP 127/78; PULSE 73; RESP 18; TEMP 37.2; O2SAT 94
[2021-09-16] MEDS: atorvastatin 40 mg Tablet 10 MG PO (07:39)
[2021-09-16] MEDS: pantoprazole DR 40 mg Tablet PO (07:39)
[2021-09-16] MEDS: oxyCODONE-APAP 5-325 mg Tablet 1 TAB PO (07:40)
[2021-09-16] MEDS: predniSONE 5 mg Tablet PO (07:40)
[2021-09-16] MEDS: aspirin 81 mg EC Tablet PO (07:40)
--- NOTE | 2021-09-16 11:57 | P.DS_ITS ---
Discharge Providers Date of Admission: 09/15/21 00:42 Date of Discharge: September 16, 2021 Attending Provider at Admission: Brooklyn Chase MD Attending Provider at Discharge: Lucio Block MD Primary Care Provider: Clint Higgins MD Diagnoses at Discharge Discharge Diagnosis (1) Diverticulitis: Status: Acute (2) Knee pain: Status: Acute Reason for Visit Reason for Visit: body aches/cold chills Hospital Course Hospital Course Aman Musa is a 71 year old male with a past medical history of kidney transplant currently on tacrolimus and mycophenolate presenting today with 3 to 4 days of complaints of abdominal discomfort, describes as as being on the left side of his abdomen.? Feeling is described as sore, 40 5 out of 10.? Additionally has felt generally sore all over.? Presented to the emergency room for these complaints.? Underwent CT of the abdomen and pelvis which showed diverticulitis.? Patient has had 1 episode of diarrhea today.? No complains of vomiting.? No fever Review of systems positive for left knee pain.? Patient states he has had bilateral knee replacement, his left knee is usually swollen at a baseline, however after waiting in the emergency room for approximately 2 hours it has started to hurt.? He attributes this to prolonged sitting in 1 position. Patient went to the hospital further evaluation and management of mild diverticulitis. At first he was started on broad-spectrum antibiotics and conservative treatment by keeping nothing by mouth. His diet was later advanced to mechanical soft which he tolerated well. He did not have any further episodes of diarrhea. So far blood cultures have remained negative. Patient did have episode of knee pain which is most likely secondary to gout. X-ray was done which was negative for any concerns for septic arthritis. He has been discharged hemodynamically stable condition on oral ciprofloxacin and Flagyl for next 5 days. He is advised to take brat/soft diet for next 3 to 4 days and advance gradually to a full diet. He is advised to take multiple small meals. He is advised to take allopurinol with his home medication for gout. Tramadol is also called in. He is advised to follow-up with his primary care provider within next 1 week. Physical Exam Narrative: General: No acute distress, AO x3 HEENT: PERRLA, pupils bilaterally equal and reactive Chest: Normal vesicular breath sounds, no added sounds, equal good air entry bilaterally CVS: S1-S2 regular, no murmurs, no tachycardia, no gallops, no rubs Abdomen: Soft, nontender, no organomegaly, bowel sounds present Neuro: No focal deficits, no facial deformity, AO x3, power 5/5 in all limbs Discharge Data Studies Completed and Pending Completed Studies During Hospitalization Category Date Time Status CT abdomen pelvis wo con 62015 Urgent Cat Scan 09/14/21 22:48 Completed XR knee LT 3V* [id number] Urgent Exams 09/15/21 00:56 Completed Pending at discharge Category Date Time Status Blood Culture Stat Lab 09/14/21 22:01 Results Clostridioides Difficile PCR Routine Lab 09/15/21 14:37 Ordered Immunochemical Fecal OCB Routine Lab 09/15/21 14:37 Ordered Lactoferrin Routine Lab 09/15/21 14:37 Ordered Stool Culture, Bacterial [Enteric Bacterial Panel by Lab 09/15/21 11:27 Uncollected PCR] Routine Radiology Impressions Abdomen/Pelvis CT 09/14/21 22:48 IMPRESSION: 1. Findings consistent with acute diverticulitis of the distal descending colon are noted. No associated diverticular perforation or pericolonic abscess. 2. End-stage [place] kidneys with right lower quadrant transplant graft. The graft is morphologically normal. 3. Small left inguinal hernia noted, containing only fat. COMMENTS: Consistent with the [place] [employer]'s Incidental Findings Committee white paper (J Am Ryan Radiol 2018): Any incidental renal lesion less than 1 cm or classified as too small to characterize, or any incidental cystic renal lesion characterized as simple-appearing, is likely benign. No follow-up imaging is recommended for these lesions per consensus recommendations based on imaging criteria. Knee X-Ray 09/15/21 00:56 IMPRESSION: 1. No acute abnormality demonstrated. 2. Previous left knee arthroplasty. 3. Small suprapatellar osteophyte or osteochondral body. Laboratory Results WBC 9.4 10^3/uL (4.0-10.0) 09/16/21 04:00 RBC 4.57 10^6/uL (4.1-5.3) 09/16/21 04:00 Hgb 14.2 g/dL (11.7-16.6) 09/16/21 04:00 Hct 43.4 % (42.0-52.0) 09/16/21 04:00 MCV 95.0 fl (80-94) H 09/16/21 04:00 MCH 31.1 pg (28.0-34.0) 09/16/21 04:00 MCHC 32.7 g/dL (30.0-36.0) 09/16/21 04:00 RDW 12.3 % (12.1-15.1) 09/16/21 04:00 Plt Count 195 10^3/cmm (130-400) 09/16/21 04:00 MPV 9.6 fL (7.4-10.4) 09/16/21 04:00 Neut % (Auto) 75.9 % 09/16/21 04:00 Lymph % (Auto) 7.6 % 09/16/21 04:00 [place] % (Auto) 15.1 % 09/16/21 04:00 Eos % (Auto) 0.5 % 09/16/21 04:00 Baso % (Auto) 0.2 % 09/16/21 04:00 Neut # (Auto) 7.11 10^3/uL (1.8-7.7) 09/16/21 04:00 Lymph # (Auto) 0.7 10^3/uL (0.8-4.8) L 09/16/21 04:00 [place] # (Auto) 1.4 10^3/uL (0.2-0.9) H 09/16/21 04:00 Eos # (Auto) 0.1 10^3/uL (0.0-0.8) 09/16/21 04:00 Baso # (Auto) 0.0 10^3/uL (0.0-0.1) 09/16/21 04:00 Nucleated RBC % (auto) 0 % 09/16/21 04:00 Nucleated RBCs # 0.0 /100WBC 09/16/21 04:00 Sodium 135 mmol/L (136-145) L 09/16/21 04:00 Potassium 4.5 mmol/L (3.5-5.1) 09/16/21 04:00 Chloride 104 mmol/L (98-107) 09/16/21 04:00 Carbon Dioxide 25 mmol/L (22-29) 09/16/21 04:00 Anion Gap 10.5 (5-19) 09/16/21 04:00 BUN 12 mg/dL (8-23) 09/16/21 04:00 Creatinine 1.1 mg/dL (0.7-1.2) 09/16/21 04:00 GFR Calculation Not Reportable 09/16/21 04:00 Glucose 97 mg/dL (65-115) 09/16/21 04:00 Calculated Osmolality 280 mOsm/kg (285-295) L 09/16/21 04:00 Lactic Acid 0.7 mmol/L (0.5-2.2) 09/16/21 04:00 Calcium 8.6 mg/dL (8.5-10.5) 09/16/21 04:00 Total Bilirubin 0.6 mg/dL (0.15-1.2) 09/16/21 04:00 AST 16 U/L (0-40) 09/16/21 04:00 ALT 10 U/L (0-41) 09/16/21 04:00 Alkaline Phosphatase 72 IU/L (40-130) 09/16/21 04:00 Total Protein 5.3 g/dL (6.6-8.7) L 09/16/21 04:00 Albumin 2.9 g/dL (3.5-5.2) L 09/16/21 04:00 Globulin 2.4 g/dL (1.3-4.6) 09/16/21 04:00 Urine Color Yellow (Yellow) 09/14/21 22:10 Urine Appearance Clear (CLEAR) 09/14/21 22:10 Urine pH 5 (5-7) 09/14/21 22:10 Ur Specific [place] 1.010 (1.005-1.030) 09/14/21 22:10 Urine Protein Neg (Negative) 09/14/21 22:10 Urine Glucose (UA) Norm (Normal) 09/14/21 22:10 Urine Ketones 1+ (Negative) H 09/14/21 22:10 Urine Blood Neg (Negative) 09/14/21 22:10 Urine Nitrate Negative (Negative) 09/14/21 22:10 Urine Bilirubin Neg (Negative) 09/14/21 22:10 Urine Urobilinogen Norm mg/dL (Negative) 09/14/21 22:10 Ur Leukocyte Esterase Negative (Negative) 09/14/21 22:10 Influenza Type A Ag Negative (Negative) 09/15/21 00:09 Influenza Type B Ag Negative (Negative) 09/15/21 00:09 SARS-CoV-2 Ag (Rapid) Negative (Negative) 09/14/21 22:15 Vitals Last Vital Signs Temp 99.0 F 09/16/21 07:37 Pulse 73 09/16/21 07:37 Resp 18 09/16/21 07:37 BP 127/78 09/16/21 07:37 Pulse Ox 94 09/16/21 07:37 Discharge Plan Discharge Patient Disposition: Home Condition: Stable Prescriptions: New tramadol 50 mg tablet 50 mg PO Q8H PRN (Reason: pain) Qty: 10 0RF pantoprazole 40 mg Tablet,Delayed Release (Dr/Ec) 40 mg PO DAILY Qty: 30 0RF ciprofloxacin HCl 500 mg tablet 500 mg PO Q12H 5 Days Qty: 10 0RF metronidazole 500 mg tablet 500 mg PO Q8H 5 Days Qty: 15 0RF Continued Envarsus XR 1 mg tablet extended release 24 hr 1 mg PO DAILY 0RF Rx Instructions: must be taken on empty stomach cholecalciferol (vitamin D3) [Vitamin D3] 50 mcg (2,000 unit) capsule 50 mcg PO DAILY@0900 0RF atorvastatin 10 mg tablet 10 mg PO DAILY@0900 0RF aspirin [Aspir-81] 81 mg Tablet,Delayed Release (Dr/Ec) 81 mg PO DAILY@0930 0RF mycophenolate sodium 360 mg tablet,delayed release (DR/EC) 360 mg PO BID 0RF temazepam 30 mg capsule 30 mg PO BEDTIME 0RF prednisone 5 mg tablet 5 mg PO DAILY 0RF Discharge Orders: Discharge Order (Routine); Ordered 09/16/21 Ordered By: Lucio Block Referrals: Clint Higgins MD [Primary Care Provider] - 4-7 days Discharge Diet: Advance as tolerated and Soft Mechanical Discharge Activity: Resume usual activity and Increase activity as tolerated Patient Instructions: Opioid Safety Activity Restrictions/Additional Instructions: Please continue taking/brat diet going forward for next 3 to 4 days and advance gradually to a regular diet. Take multiple small meals. You will be on antibiotics Flagyl and ciprofloxacin for next 5 days. Please follow-up with your primary care provider within next 1 week. Discharge Attestations Time Spent in Discharge Care*: greater than 30 min Specific Discharge Activities: educating patient, educating and/or supporting family/caregiver, discussing with child welfare caseworker/social workers/dc planners, documenting/other paperwork and evaluating patient/reviewing data Status at Discharge: Cognitive status at discharge: cognitively intact , Behavioral status at discharge: cooperative , Functional status at discharge: independent ambulation , Overall status at discharge: patient is back to baseline Quality Metrics Clinical Quality Measures [ No reported AMI, CVA or VTE this stay] Coding Level of Care Code Acute Chg DC note Diagnoses Diverticulitis K57.92 Knee pain M25.569
== END 2021-09-16 13:19 | disposition home or self-care (01) ==
LOC: ER 09-15 00:51 → MEDSURG 09-15 01:05
PROVIDERS: Emergency Medicine; Admitting Provider Student in an Organized Health Care Education/Training Program; Emergency Provider Emergency Medicine; PCP Family Medicine; Visit Provider Student in an Organized Health Care Education/Training Program
DX: K57.92 Diverticulitis of intestine, part unspecified, without perforation or abscess without bleeding (principal); Z94.0 Kidney transplant status; E78.00 Pure hypercholesterolemia, unspecified; Z83.3 Family history of diabetes mellitus; Z82.49 Family history of ischemic heart disease and other diseases of the circulatory system; M25.562 Pain in left knee
CPT/HCPCS: 36415; 73562; 74176; 80053; 81003; 83605; 85025; 87040; 87426; 87804; 96361; 96365; 96366; 96367; 96375; 96376; 99285; 99291; 99292; G0378; J0744; J1885; J3010; J7030; J7040; J7512; S0030

== ENCOUNTER → 2021-10-03 08:34 | Outpatient (BNVA) | payer MEDICARE, OTHER, SELFPAY | PROVIDERS: PCP Family Medicine; Visit Provider Family Medicine | DX: Z94.0 Kidney transplant status (principal); Z79.899 Other long term (current) drug therapy | CPT/HCPCS: 80061; 80069; 80076; 80197; 85025 ==

== ENCOUNTER → 2021-11-02 08:04 | Outpatient (BNVA) | payer MEDICARE, OTHER, SELFPAY | PROVIDERS: PCP Family Medicine; Visit Provider Family Medicine | DX: Z94.0 Kidney transplant status (principal); Z79.899 Other long term (current) drug therapy | CPT/HCPCS: 80061; 80069; 80076; 80197; 85025 ==

== ENCOUNTER 2021-11-29 19:21 | Emergency (ER) | payer MEDICARE, OTHER, SELFPAY ==
[2021-11-29 21:20] VITALS: BP 157/95; PULSE 69; RESP 16; TEMP 36.6; O2SAT 97; BMI 25.1
[2021-11-29 22:10] LABS: Rapid Strep A Test Negative (Negative)
[2021-11-29 23:39] LABS: Adenovirus Not Detected (NOT DETECT); Chlamydia Pneumoniae Not Detected (NOT DETECT); Coronavirus 229E,HKU1,NL63,OC4 Not Detected (NOT DETECT); Human Metapneumovirus Not Detected (NOT DETECT); Human Rhinovirus/Enterovirus Not Detected (NOT DETECT); Influenza A Not Detected (NOT DETECT); Influenza A H1 Not Detected (NOT DETECT); Influenza A H1-2009 Not Detected (NOT DETECT); Influenza A H3 Not Detected (NOT DETECT); Influenza B Not Detected (NOT DETECT); Mycoplasma Pneumoniae Not Detected (NOT DETECT); Parainfluenza Virus Type 1 Not Detected (NOT DETECT); Parainfluenza Virus Type 2 Not Detected (NOT DETECT); Parainfluenza Virus Type 3 Not Detected (NOT DETECT); Parainfluenza Virus Type 4 Not Detected (NOT DETECT); Respiratory Syncytial Virus A Not Detected (NOT DETECT); Respiratory Syncytial Virus B Not Detected (NOT DETECT); SARS-COV-2 Detected (NOT DETECT)
--- NOTE | 2021-11-30 01:09 | W.ED.GENADLT ---
HPI - General Adult General: Chief complaint: General Medical Stated complaint: sore throat Time Seen by Provider: 11/30/21 01:09 History of Present Illness: Mr. Musa is a 71-year-old gentleman with history of kidney transplant presenting to the emergency department due to sore throat and bump on his neck. Onset of symptoms was 3 days ago and subacute. He describes sore throat and noticing a bump on the right side of his neck. Mild hoarseness of voice. No difficulty swallowing or breathing. Intensity symptoms is mild to moderate. Course has persisted. No other specific changes in health, exacerbating, or alleviating factors identified. Patient does have a history of vaccination and booster to COVID. Does also have a history of COVID infection. Onset (ago): day(s) Severity: moderate Quality: other Associated symptoms: Reports no associated symptoms Review of Systems General: Reports: 10 or more systems reviewed and unremarkable except in HPI and below PFSH ED PFSH: Medical History Hypercholesteremia Kidney disease Surgical History Kidney transplant recipient Family History Other Diabetes Hypertension Denies family history of CAD (coronary artery disease) Cancer Social History Smoking and tobacco status: never smoked Alcohol intake: never History of recent travel: No Physical Exam Const: COMMON NORMALS: alert GENERAL APPEARANCE: cooperative and well developed HENMT: COMMON NORMALS: normocephalic and atraumatic HEAD & SCALP: normocephalic and atraumatic THROAT: posterior oropharynx normal OTHER: No uvular edema or deviation. 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 No evidence of Ludewig's angina. Oropharynx appears otherwise unremarkable. Eye: COMMON NORMALS: conjunctivae normal CONJUNCTIVA: Yes conjunctivae normal SCLERA: sclerae normal Neck/C-Spine: COMMON NORMALS: full ROM, supple and no meningeal signs GENERAL: Yes trachea midline OTHER: Right submental lymphadenopathy, approximately 1 cm and mobile. No overlying skin changes. Resp: COMMON NORMALS: normal respiratory effort and clear to auscultation bilaterally EFFORT & INSPECTION: Yes able to speak in complete sentences AUSCULTATION: clear to auscultation bilaterally Cardio: COMMON NORMALS: regular rate and regular rhythm RATE: regular rate RHYTHM: regular rhythm GI: COMMON NORMALS: Soft to palpation PALPATION: Yes Soft to palpation and No Tenderness to palpation present (GI) Extremity: GENERAL: Yes normal exam except as noted and No edema Neuro: COMMON NORMALS: moves all extremities SENSORIUM/ORIENTATION: Yes alert and No Orientation impaired MENINGEAL SIGNS: Yes no meningeal signs Psych: COMMON NORMALS: mental status grossly normal and Normal thought process present THOUGHT PROCESS: Normal thought process present Course Vital Signs: Vital signs: Vital Signs Temperature 97.9 F 11/29/21 21:20 Pulse Rate 69 11/29/21 21:20 Respiratory Rate 16 11/29/21 21:20 Blood Pressure 157/95 11/29/21 21:20 Pulse Oximetry 97 11/29/21 21:20 [facility] - General Adult Medical Decision Making 71-year-old gentleman with history of kidney transplant presenting with sore throat for 3 days and bump on his neck. Vital satisfactory. Patient is nontoxic in appearance. No meningeal signs. No adventitious upper airway noises or concerning findings in the oropharynx. Patient does have what is likely a submental lymph node which is likely reactive given that patient is COVID-positive. Discussed Paxlovid which the patient declined. Symptom treatment, follow-up plan, return precautions given. Satisfactory for outpatient management. Medical Records I reviewed the patient's medical records. Lab Data I reviewed the patient's lab results. Laboratory Results Nasal Influ A H1 2008 PCR Not detected (NOT DETECT) 11/29/21 21:28 Coronavirus 229E (PCR) Not detected (NOT DETECT) 11/29/21 21:28 Influenza A (H1) PCR Not detected (NOT DETECT) 11/29/21 21:28 Influenza A (H3) PCR Not detected (NOT DETECT) 11/29/21 21:28 Influenza Type A (PCR) Not detected (NOT DETECT) 11/29/21 21:28 Influenza Type B (PCR) Not detected (NOT DETECT) 11/29/21 21:28 SARS-CoV-2 (PCR) Detected (NOT DETECT) A 11/29/21 21:28 Group A Strep Rapid Negative (Negative) 11/29/21 21:28 Discharge Plan Discharge Patient Disposition: Home Clinical Impression: Submental lymphadenopathy, COVID-19 Condition: Stable Prescriptions: No Action Envarsus XR 1 mg tablet extended release 24 hr 1 mg PO DAILY Rx Instructions: must be taken on empty stomach cholecalciferol (vitamin D3) [Vitamin D3] 50 mcg (2,000 unit) capsule 50 mcg PO DAILY@0900 atorvastatin 10 mg tablet 10 mg PO DAILY@0900 ciprofloxacin HCl 500 mg tablet 500 mg PO BID Qty: 20 0RF metronidazole 500 mg tablet 500 mg PO TID Qty: 30 0RF scopolamine base 1 mg over 3 days patch 3 day 1 patch transdermal Q3D PRN (Reason: nausea and vomiting) Qty: 4 0RF aspirin 81 mg Tablet,Delayed Release (Dr/Ec) 81 mg PO DAILY@0930 mycophenolate sodium 360 mg tablet,delayed release (DR/EC) 360 mg PO BID temazepam 30 mg capsule 30 mg PO BEDTIME prednisone 5 mg tablet 5 mg PO DAILY pantoprazole 40 mg Tablet,Delayed Release (Dr/Ec) 40 mg PO DAILY Qty: 30 0RF tramadol 50 mg tablet 50 mg PO Q8H PRN (Reason: pain) Qty: 10 0RF Discharge Orders: Discharge ED (Routine); Ordered 11/30/21 Ordered By: Raman Herndon Referrals: Clint Higgins MD [Primary Care Provider] - Discharge Diet: Usual diet Discharge Activity: Increase activity as tolerated Patient Instructions: Lymphadenopathy (ED), COVID-19 (Coronavirus Disease 2019) (ED) Activity Restrictions/Additional Instructions: Thank you for visiting the emergency department. You were seen evaluated for sore throat and lump in your throat. The most likely cause of your symptoms is related to COVID-19 and reactive enlarged lymph nodes. The treatment for COVID-19 is primarily supportive. Please ensure that you are staying hydrated. You may use [id number] medications however please do not exceed the daily recommended dosage. Please continue your other medications. Please follow-up with your primary care provider. I would expect improvement in the enlarged neck lymph node within 2 weeks however if this persists you may require further investigation such as ultrasound. Return to the emergency department for worsening symptoms, shortness of breath, inability to tolerate oral intake, or anything else that you are concerned about a feel needs emergency department evaluation. 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
[2021-11-30 03:37] VITALS: BP 162/100; PULSE 77; RESP 16; O2SAT 97
[2021-11-30 06:34] LABS: Results from Genmark
== END 2021-11-30 01:48 | disposition home or self-care (01) ==
PROVIDERS: Emergency Medicine; Emergency Provider Emergency Medicine; PCP Family Medicine
DX: U07.1 COVID-19 (principal); E78.00 Pure hypercholesterolemia, unspecified; Z79.82 Long term (current) use of aspirin; Z94.0 Kidney transplant status
CPT/HCPCS: 87081; 87631; 87635; 87880; 99283

== ENCOUNTER → 2021-12-06 07:53 | Outpatient (BNVA) | payer MEDICARE, OTHER, SELFPAY | PROVIDERS: PCP Family Medicine; Visit Provider Family Medicine | DX: Z94.0 Kidney transplant status (principal); Z79.899 Other long term (current) drug therapy | CPT/HCPCS: 80061; 80069; 80076; 80197; 85025 ==

== ENCOUNTER → 2022-01-02 08:50 | Outpatient (BNVA) | payer MEDICARE, OTHER, SELFPAY | PROVIDERS: PCP Family Medicine; Visit Provider Family Medicine | DX: Z94.0 Kidney transplant status (principal) | CPT/HCPCS: 80061; 80069; 80076; 80197; 85025 ==

== ENCOUNTER → 2022-01-14 11:49 | Outpatient (BNVA) | payer MEDICARE, OTHER, SELFPAY | PROVIDERS: PCP Family Medicine; Visit Provider Registered Nurse Neonatal Intensive Care | DX: M79.604 Pain in right leg (principal) | CPT/HCPCS: 73590 ==

== ENCOUNTER → 2022-02-06 08:01 | Outpatient (BNVA) | payer MEDICARE, OTHER, SELFPAY | PROVIDERS: PCP Family Medicine; Visit Provider Family Medicine | DX: Z94.0 Kidney transplant status (principal) | CPT/HCPCS: 80061; 80069; 80076; 80197; 85025 ==

== ENCOUNTER → 2022-02-19 10:50 | Day surgery (SDC) | payer MEDICARE, OTHER, SELFPAY ==
[2022-02-19 11:26] VITALS: BP 123/77; PULSE 75; RESP 18; TEMP 36.7; O2SAT 94
[2022-02-19 11:34] LABS: Hematocrit 51.2 % (42.0-52.0)
--- NOTE | 2022-02-19 11:56 | PC.NURSE ---
Pt to GI infusions for therapeutic phlebotomy. Hg and Hct drawn as ordered prior to procedure. Orders to perform phlebotomy if Hg >18 and Hct >55. Pt Hg 17 and Hct 51. Phlebotomy not performed. Dr. Roa's office notified.
== END ==
PROVIDERS: PCP Family Medicine; Visit Provider Hospitalist
DX: D75.0 Familial erythrocytosis (principal)
CPT/HCPCS: 36415; 85014; 85018

== ENCOUNTER 2022-03-01 10:52 | Outpatient (CLI) | payer MEDICARE, OTHER, SELFPAY ==
--- NOTE | 2022-03-01 11:06 | US_ITS ---
WS: [id number] Abdomen ultrasound, 03/01/2022 Clinical Data: ERYTHROCYTOSIS Comparison: Bilateral renal ultrasound, 12/06/2020 Findings: The pancreas shows no cyst, pseudocyst or evidence of pancreatitis. The liver shows no cysts, masses or dilated intrahepatic ducts. There is normal portal venous flow. The gallbladder has no stones or sludge. The wall measures 0.2 cm with no pericholecystic fluid. The common bile duct is 0.3 cm and no intraductal abnormalities are noted. The right kidney is 8.7 cm. There are simple cysts of the [place] right kidney The left kidney is 10.8 cm. There are simple cysts of the [place] left kidney. The transplant kidney is unremarkable. The abdominal aorta is not dilated and the inferior vena cava has normal flow. No vascular abnormalit ies are seen. The spleen measures 7.8 cm and there are no intrasplenic masses or capsular abnormalities. US/US abdomen complete* [id number] Impression: 1. Atrophy of the [place] kidneys with simple cysts. 2. Transplant kidney normal
== END 2022-03-01 10:53 | disposition home or self-care (01) ==
LOC: RAD 10:54
PROVIDERS: PCP Family Medicine; Visit Provider Hospitalist
DX: D75.1 Secondary polycythemia (principal); Z94.0 Kidney transplant status; Q61.02 Congenital multiple renal cysts; N26.1 Atrophy of kidney (terminal)
CPT/HCPCS: 76700; 80061; 80069; 80076; 80197; 85025

== ENCOUNTER → 2022-03-06 08:10 | Outpatient (BNVA) | payer MEDICARE, OTHER, SELFPAY | PROVIDERS: PCP Family Medicine; Visit Provider Family Medicine | DX: Z94.0 Kidney transplant status (principal) | CPT/HCPCS: 80061; 80069; 80076; 80197; 85025 ==

== ENCOUNTER → 2022-03-22 07:53 | Day surgery (SDC) | payer MEDICARE, OTHER, SELFPAY ==
[2022-03-22 08:00] VITALS: BP 125/72; PULSE 74; RESP 18; TEMP 35.7; O2SAT 96
[2022-03-22 08:12] LABS: Hematocrit 53.3 % (42.0-52.0); Hemoglobin 17.2 g/dL (11.7-16.6)
--- NOTE | 2022-03-22 08:20 | PC.NURSE ---
Pt to GI infusions for therapeutic phlebotomy. Orders to draw if Hg greater than or equal to 18 or Hct greater than or equal to 55. Pt Hg 17.2 and Hct 53.3 today. Phlebotomy not indicated. Results sent to the Kidney Transplant team at [facility].
== END ==
PROVIDERS: PCP Family Medicine; Visit Provider Hospitalist
DX: D75.0 Familial erythrocytosis (principal)
CPT/HCPCS: 36415; 85014; 85018

== ENCOUNTER → 2022-04-02 07:58 | Outpatient (BNVA) | payer MEDICARE, OTHER, SELFPAY | PROVIDERS: PCP Family Medicine; Visit Provider Family Medicine | DX: Z94.0 Kidney transplant status (principal); E78.5 Hyperlipidemia, unspecified | CPT/HCPCS: 80061; 80069; 80076; 80197; 85025 ==

== ENCOUNTER → 2022-04-23 07:52 | Day surgery (SDC) | payer MEDICARE, OTHER, SELFPAY ==
[2022-04-23 08:15] VITALS: BP 136/80; PULSE 60; RESP 18; TEMP 35.9; O2SAT 97
--- NOTE | 2022-04-23 08:20 | PC.NURSE ---
Phlebotomy to be performed if Hg greater than 18 and Hct greater than 55 per physician order. Pt Hg today 17 and Hct 52. Phelbotomy held. Pt rescheduled for next month.
== END ==
PROVIDERS: PCP Family Medicine; Visit Provider Hospitalist
DX: D75.0 Familial erythrocytosis (principal); Z53.8 Procedure and treatment not carried out for other reasons
CPT/HCPCS: 36415; 85014; 85018

== ENCOUNTER → 2022-05-08 09:10 | Outpatient (BNVA) | payer MEDICARE, OTHER, SELFPAY | PROVIDERS: PCP Family Medicine; Visit Provider Family Medicine | DX: Z94.0 Kidney transplant status (principal) | CPT/HCPCS: 80061; 80069; 80076; 80197; 85025 ==

== ENCOUNTER → 2022-05-10 08:28 | Outpatient (BNVA) | payer MEDICARE, OTHER, SELFPAY | PROVIDERS: PCP Family Medicine; Visit Provider Family Medicine | DX: Z94.0 Kidney transplant status (principal); Z79.899 Other long term (current) drug therapy | CPT/HCPCS: 80048 ==

== ENCOUNTER → 2022-05-18 12:54 | Day surgery (SDC) | payer MEDICARE, OTHER, SELFPAY ==
[2022-05-18 13:00] VITALS: BP 103/60; PULSE 70; RESP 18; TEMP 36.2; O2SAT 96
[2022-05-18 13:17] LABS: Hematocrit 50.3 % (42.0-52.0); Hemoglobin 16.8 g/dL (11.7-16.6)
--- NOTE | 2022-05-18 13:34 | PC.NURSE ---
Hg 16.8 and Hg 50.3 today. Phlebotomy not drawn due to Hg not being greater than 18. Pt rescheduled for next month.
== END ==
PROVIDERS: PCP Family Medicine; Visit Provider Hospitalist
DX: D75.0 Familial erythrocytosis (principal)
CPT/HCPCS: 36415; 85014; 85018

== ENCOUNTER → 2022-06-06 07:51 | Outpatient (BNVA) | payer MEDICARE, OTHER, SELFPAY | PROVIDERS: PCP Family Medicine; Visit Provider Family Medicine | DX: E87.5 Hyperkalemia (principal); Z94.0 Kidney transplant status | CPT/HCPCS: 80061; 80069; 80076; 80197; 85025 ==

== ENCOUNTER → 2022-06-18 08:04 | Day surgery (SDC) | payer MEDICARE, OTHER, SELFPAY ==
[2022-06-18 08:25] VITALS: BP 124/81; PULSE 61; RESP 18; TEMP 35.9; O2SAT 96
[2022-06-18 08:26] LABS: Hematocrit 51.7 % (42.0-52.0); Hemoglobin 16.9 g/dL (11.7-16.6)
--- NOTE | 2022-06-18 08:28 | PC.NURSE ---
Pt to GI infusions for therapeutic phlebotomy. Hg 16.9 and Hct 51.7 today. Phlebotomy only to be drawn if Hg greater than or equal to 18 and/or Hct greater than 55. Phlebotomy held.
== END ==
PROVIDERS: PCP Family Medicine; Visit Provider Hospitalist
DX: D75.0 Familial erythrocytosis (principal)
CPT/HCPCS: 36415; 85014; 85018

== ENCOUNTER → 2022-07-09 11:12 | Outpatient (BNVA) | payer MEDICARE, OTHER, SELFPAY | PROVIDERS: PCP Family Medicine; Visit Provider Podiatrist Foot & Ankle Surgery | DX: M72.2 Plantar fascial fibromatosis (principal); Z94.0 Kidney transplant status | CPT/HCPCS: 73630; 80061; 80069; 80076; 80197; 85025; 99203 ==

== ENCOUNTER → 2022-07-23 07:59 | Day surgery (SDC) | payer MEDICARE, OTHER, SELFPAY ==
[2022-07-23 08:15] LABS: Hematocrit 52.6 % (42.0-52.0); Hemoglobin 17.1 g/dL (11.7-16.6)
[2022-07-23 08:19] VITALS: BP 135/82; PULSE 63; RESP 18; TEMP 36.1; O2SAT 97
--- NOTE | 2022-07-23 08:20 | PC.NURSE ---
Pt to GI infusion for therapeutic phlebotomy. Hg 17.1 and Hct 52.6. Phlebotomy not drawn as Hct is not above 55.
== END ==
PROVIDERS: PCP Family Medicine; Visit Provider Hospitalist
DX: D75.0 Familial erythrocytosis (principal); Z79.899 Other long term (current) drug therapy
CPT/HCPCS: 36415; 85014; 85018

== ENCOUNTER → 2022-08-06 09:28 | Outpatient (BNVA) | payer MEDICARE, OTHER, SELFPAY | PROVIDERS: PCP Family Medicine; Visit Provider Family Medicine | DX: Z94.0 Kidney transplant status (principal) | CPT/HCPCS: 80061; 80069; 80076; 80197; 85025 ==

== ENCOUNTER → 2022-08-07 09:39 | Outpatient (BNVA) | payer MEDICARE, OTHER, SELFPAY | PROVIDERS: PCP Family Medicine; Visit Provider Podiatrist Foot & Ankle Surgery | DX: M72.2 Plantar fascial fibromatosis (principal) | CPT/HCPCS: 20550; J1100; J3301 ==

== ENCOUNTER → 2022-08-20 07:56 | Day surgery (SDC) | payer MEDICARE, OTHER, SELFPAY ==
[2022-08-20 08:10] VITALS: BP 123/78; PULSE 65; RESP 18; TEMP 36.2; O2SAT 98
[2022-08-20 08:20] LABS: Hematocrit 52.6 % (42.0-52.0); Hemoglobin 17.3 g/dL (11.7-16.6)
--- NOTE | 2022-08-20 08:26 | PC.NURSE ---
Hg from today 17.3 and Hct 52.6. Phlebotomy not drawn. Orders to draw phlebotomy if Hg > 18 or Hct > 55.
== END ==
PROVIDERS: PCP Family Medicine; Visit Provider Hospitalist
DX: D75.0 Familial erythrocytosis (principal)
CPT/HCPCS: 36415; 85014; 85018

== ENCOUNTER → 2022-09-05 08:18 | Outpatient (BNVA) | payer MEDICARE, OTHER, SELFPAY | PROVIDERS: PCP Family Medicine; Visit Provider Family Medicine | DX: E78.5 Hyperlipidemia, unspecified (principal); Z94.0 Kidney transplant status | CPT/HCPCS: 80061; 80069; 80076; 80197; 85025 ==

== ENCOUNTER → 2022-09-12 11:19 | Outpatient (BNVA) | payer MEDICARE, OTHER, SELFPAY | PROVIDERS: PCP Family Medicine; Visit Provider Podiatrist Foot & Ankle Surgery | DX: M72.2 Plantar fascial fibromatosis (principal) | CPT/HCPCS: 20550; J1100; J3301 ==

== ENCOUNTER → 2022-09-17 07:51 | Day surgery (SDC) | payer MEDICARE, OTHER, SELFPAY ==
[2022-09-17 08:06] VITALS: BP 134/75; PULSE 69; RESP 18; TEMP 36; O2SAT 98
[2022-09-17 08:09] LABS: Hematocrit 52.9 % (42.0-52.0); Hemoglobin 17.3 g/dL (11.7-16.6)
--- NOTE | 2022-09-17 08:17 | PC.NURSE ---
Pt to GI infusions as referral from [facility] Transplant for Therapeutic Phlebotomy. Orders to draw if Hg > 18 or Hct > 55. Pt Hg today 17.3 and Hct 52.9. Phlebotomy not drawn.
== END ==
PROVIDERS: PCP Family Medicine; Visit Provider Hospitalist
DX: D75.0 Familial erythrocytosis (principal)
CPT/HCPCS: 36415; 85014; 85018

== ENCOUNTER → 2022-10-08 08:53 | Outpatient (BNVA) | payer MEDICARE, OTHER, SELFPAY | PROVIDERS: PCP Family Medicine; Visit Provider Family Medicine | DX: Z94.0 Kidney transplant status (principal); Z79.899 Other long term (current) drug therapy | CPT/HCPCS: 85025 ==

== ENCOUNTER → 2022-10-09 10:58 | Outpatient (BNVA) | payer MEDICARE, OTHER, SELFPAY | PROVIDERS: PCP Family Medicine; Visit Provider Family Medicine | DX: E87.5 Hyperkalemia (principal); Z94.0 Kidney transplant status; Z79.899 Other long term (current) drug therapy | CPT/HCPCS: 80061; 80069; 80076; 80197; 85025 ==

== ENCOUNTER 2022-10-17 07:12 | Emergency (ER) | payer MEDICARE, OTHER, SELFPAY ==
[2022-10-17 07:23] VITALS: BP 140/93; PULSE 64; RESP 16; O2SAT 93; BMI 22.9
--- NOTE | 2022-10-17 07:31 | ED_ITS ---
HPI - Abdominal Pain General: Chief Complaint: General Medical Stated Complaint: colon issue Time Seen by Provider: 10/17/22 07:16 Source: patient Mode of arrival: ambulatory Limitations: no limitations History of Present Illness: Patient is a nice 72-year-old male who presents to ED today with a complaint of a knot that he noticed near his anus this morning and he awoke. Patient states he is concerned as he has a routine colonoscopy scheduled with Dr. Matthews tomorrow. He states the knot is not painful. He has not noticed any rectal bleeding when he wipes or in his stool. Patient does have a history of hemorrhoids but states this feels different. MD elicited complaint: other (rectal knot ) Pertinent past history: none Onset (ago): hour(s) Location: Other (rectum) Severity: mild Radiation: none Migration to: no migration Exacerbating factors: nothing Relieving factors: nothing Associated Symptoms: Reports no associated symptoms and other (rectal knot ); Denies change in bowel habits, chills, GI cramping, fever(s), hematochezia, melena, nausea and vomiting Review of Systems Const: Denies: fever(s), chills or body aches GI: Reports: other (rectal knot ); Denies: abdominal pain, nausea, vomiting, GI cramping, change in bowel habits, rectal pain, rectal itching, hematochezia or melena PFS ED PFSH: Medical History Exacerbation of gout Hypercholesteremia Kidney disease Surgical History Kidney transplant recipient Family History Other Diabetes Hypertension Denies family history of CAD (coronary artery disease) Cancer Social History Smoking and tobacco status: never smoked Alcohol intake: never Substance/Drug Use: never Physical Exam Const: COMMON NORMALS: no acute distress, average body habitus, patient orie nted x3, no limitations, healthy appearing, alert and well nourished GENERAL APPEARANCE: cooperative ORIENTATION/CONSCIOUSNESS: Yes awake, Yes oriented to person, Yes oriented to place and Yes oriented to time GI: COMMON NORMALS: Normal to inspection, nondistended, normoactive bowel sounds present, Soft to palpation and non-tender PALPATION: Yes Soft to palpation RECTAL EXAM: Yes hemorrhoids (nickel sized non-thrombosed external hemorrhoid ) Neuro: COMMON NORMALS: patient oriented x3 SENSORIUM/ORIENTATION: Yes alert, Yes oriented to person, Yes oriented to place and Yes oriented to time Course Vital Signs: Vital signs: Vital Signs Pulse Rate 64 10/17/22 07:23 Respiratory Rate 16 10/17/22 07:23 Blood Pressure 140/93 10/17/22 07:23 Pulse Oximetry 93 10/17/22 07:23 Oxygen Delivery Me thod Room Air 10/17/22 07:23 MDM - Abdominal Pain Medical Decision Making Patient is a nice 72-year-old male presents to ED today with a complaint of a knot near his rectum/anus that he noticed this morning. He states he is not having any pain. He has not noticed any bleeding. He states his only concern is that he is scheduled for colonoscopy with Dr. Matthews tomorrow and wanted to get it checked out. On exam he has one nickel sized non-thrombosed external hemorrhoid. Most likely is not going to affect his colonoscopy tomorrow. I did recommend he talk to Dr. Matthews this morning when their office opens to verify. Discussed how his GoLytely treatment before his procedure could irritate the hemorrhoid as he will be experiencing multiple diarrhea stools. Recommend barrier creams and pat/rinse dry versus continual wiping. Discharge Plan Discharge Patient Disposition: Home Clinical Impression: External hemorrhoid Condition: Stable Prescriptions: No Action cholecalciferol (vitamin D3) [Vitamin D3] 50 mcg (2,000 unit) capsule 50 mcg PO DAILY@0900 atorvastatin 10 mg tablet 10 mg PO DAILY@0900 methylprednisolone [Medrol (Michael)] 4 mg tablets,dose pack 4 mg PO DAILY Qty: 21 0RF fluticasone propionate [Flonase Allergy Relief] 50 mcg/actuation spray,suspension 1 spray intranasal BID Qty: 16 0RF Rx Instructions: administer into each nostril dextromethorphan-guaifenesin [Mucinex DM] 60-1,200 mg tablet extended release 12 hr 1 tab PO Q12H Qty: 10 0RF ofloxacin 0.3 % drops 1 drp ophthalmic (eye) QID 7 Days Qty: 5 0RF sildenafil 25 mg tablet 25 mg PO DAILY PRN (Reason: sexual activity) Qty: 10 11RF temazepam 30 mg capsule 30 mg PO BEDTIME Qty: 30 5RF aspirin 81 mg Tablet,Delayed Release (Dr/Ec) 81 mg PO DAILY@0930 mycophenolate sodium 360 mg tablet,delayed release (DR/EC) 360 mg PO BID prednisone 5 mg tablet 5 mg PO DAILY Discharge Orders: Discharge ED (Routine); Ordered 10/17/22 Ordered By: Lyn Isaac Referrals: Clint Higgins MD [Primary Care Provider] - Patient Instructions: Hemorrhoids (DC) Activity Restrictions/Additional Instructions: As we discussed I would contact Dr. Matthews's office this morning when they open. A nonthrombosed hemorrhoid is usually not a contraindication to proceed with a colonoscopy. As we discussed you may start inel-cct-mnjylna therapies for your hemorrhoid. Dr. Matthews can go over any additional treatments he feels is necessary. 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
== END 2022-10-17 07:45 | disposition home or self-care (01) ==
PROVIDERS: Emergency Provider Physician Assistant; PCP Family Medicine
DX: E78.00 Pure hypercholesterolemia, unspecified (principal); K64.4 Residual hemorrhoidal skin tags; Z79.899 Other long term (current) drug therapy; Z79.82 Long term (current) use of aspirin
CPT/HCPCS: 99282

== ENCOUNTER → 2022-10-22 07:54 | Day surgery (SDC) | payer MEDICARE, OTHER, SELFPAY ==
[2022-10-22 08:17] LABS: Hematocrit 52.1 % (42.0-52.0)
--- NOTE | 2022-10-22 08:21 | PC.NURSE ---
Pt to GI infusions for therapeutic phlebotomy. Hg from today 17 and Hct 52.1. Orders to draw if Hct > 55. Phlebotomy not drawn.
[2022-10-22 08:25] VITALS: BP 119/78; PULSE 54; RESP 18; TEMP 35.9; O2SAT 98
== END ==
PROVIDERS: PCP Family Medicine; Visit Provider Hospitalist
DX: D75.0 Familial erythrocytosis (principal)
CPT/HCPCS: 36415; 85014; 85018

== ENCOUNTER → 2022-10-31 10:02 | Outpatient (BNVA) | payer MEDICARE, OTHER, SELFPAY | PROVIDERS: PCP Family Medicine; Visit Provider Podiatrist Foot & Ankle Surgery | DX: M72.2 Plantar fascial fibromatosis (principal) | CPT/HCPCS: 99213 ==

== ENCOUNTER → 2022-11-13 08:19 | Outpatient (BNVA) | payer MEDICARE, OTHER, SELFPAY | PROVIDERS: PCP Family Medicine; Visit Provider Family Medicine | DX: E78.5 Hyperlipidemia, unspecified (principal) | CPT/HCPCS: 80069; 80197; 85025 ==

== ENCOUNTER → 2022-11-20 09:11 | Day surgery (SDC) | payer MEDICARE, OTHER, SELFPAY ==
[2022-11-20 08:51] VITALS: BP 128/85; PULSE 64; RESP 18; TEMP 35.7; O2SAT 99
[2022-11-20 08:52] LABS: Hematocrit 54.1 % (37-53)
--- NOTE | 2022-11-20 09:00 | PC.NURSE ---
Pt referred to GI infusions for Therapeutic Phlebotomy. Today, Hg 17.9 and Hct 54.1. Orders to draw if Hg >18 or Hct >55. Phlebotomy not drawn.
== END ==
PROVIDERS: PCP Family Medicine; Visit Provider Hospitalist
DX: D75.0 Familial erythrocytosis (principal)
CPT/HCPCS: 36415; 85014; 85018

== ENCOUNTER → 2022-12-11 08:40 | Outpatient (BNVA) | payer MEDICARE, OTHER, SELFPAY | PROVIDERS: PCP Family Medicine; Visit Provider Family Medicine | DX: Z94.0 Kidney transplant status (principal) | CPT/HCPCS: 80069; 80197; 85025; 99213 ==

== ENCOUNTER → 2022-12-17 07:54 | Day surgery (SDC) | payer MEDICARE, OTHER, SELFPAY ==
[2022-12-17 08:19] VITALS: BP 130/82; PULSE 58; RESP 18; TEMP 35.7; O2SAT 98
[2022-12-17 08:24] LABS: Hematocrit 53.8 % (37-53)
--- NOTE | 2022-12-17 08:29 | PC.NURSE ---
Hg 17.6 Hct 53.8. Phlebotomy not indicated.
== END ==
PROVIDERS: PCP Family Medicine; Visit Provider Hospitalist
DX: D75.0 Familial erythrocytosis (principal)
CPT/HCPCS: 36415; 85014; 85018

== ENCOUNTER → 2023-01-17 12:09 | Outpatient (BNVA) | payer MEDICARE, OTHER, SELFPAY | PROVIDERS: PCP Family Medicine; Visit Provider Family Medicine | DX: Z94.0 Kidney transplant status (principal) | CPT/HCPCS: 80061; 80069; 80076; 80197; 85025 ==

== ENCOUNTER → 2023-01-22 08:03 | Day surgery (SDC) | payer MEDICARE, OTHER, SELFPAY ==
[2023-01-22 08:05] VITALS: BP 97/59; PULSE 60; RESP 18; TEMP 36.2; O2SAT 96
[2023-01-22 08:26] LABS: Hematocrit 52.8 % (37-53)
--- NOTE | 2023-01-22 08:34 | PC.NURSE ---
Pt to GI infusions for therapeutic phlebotomy. Hg 17.1. and Hct 52. Phlebotomy not indicated.
== END ==
PROVIDERS: PCP Family Medicine; Visit Provider Hospitalist
DX: D75.0 Familial erythrocytosis (principal)
CPT/HCPCS: 36415; 85014; 85018

== ENCOUNTER → 2023-01-24 10:49 | Outpatient (BNVA) | payer MEDICARE, OTHER, SELFPAY | PROVIDERS: PCP Family Medicine; Visit Provider Podiatrist Foot & Ankle Surgery | DX: M72.2 Plantar fascial fibromatosis (principal) | CPT/HCPCS: 20550; J1100; J3301; J3490 ==

== ENCOUNTER 2023-02-19 07:55 | Oncology outpatient (recurring) (ONCR) | payer MEDICARE, OTHER, SELFPAY ==
[2023-02-19 08:17] VITALS: BP 139/80; PULSE 62; RESP 16; TEMP 36.2; O2SAT 92
[2023-02-19 08:56] LABS: Hematocrit 54.6 % (37-53)
[2023-02-19 09:45] VITALS: BP 129/85; PULSE 66; RESP 17; TEMP 36.6; O2SAT 98
== END 2023-03-17 23:59 | disposition home or self-care (01) ==
PROVIDERS: Hospitalist; PCP Family Medicine; Visit Provider Family Medicine
DX: D75.0 Familial erythrocytosis (principal); D75.1 Secondary polycythemia
CPT/HCPCS: 36415; 85014; 85018; 99195

== ENCOUNTER → 2023-02-20 08:40 | Outpatient (BNVA) | payer MEDICARE, OTHER, SELFPAY | PROVIDERS: PCP Family Medicine; Visit Provider Family Medicine | DX: N28.9 Disorder of kidney and ureter, unspecified (principal); Z00.6 Encounter for examination for normal comparison and control in clinical research program | CPT/HCPCS: 80069; 80197; 85025 ==

== ENCOUNTER → 2023-02-25 09:33 | Outpatient (BNVA) | payer MEDICARE, OTHER, SELFPAY | PROVIDERS: PCP Family Medicine; Visit Provider Nurse Practitioner Family | DX: R68.89 Other general symptoms and signs (principal); B34.9 Viral infection, unspecified | CPT/HCPCS: 87426; 87804 ==

== ENCOUNTER 2023-03-13 12:03 | Outpatient (CLI) | payer MEDICARE, OTHER, SELFPAY | END 2023-03-13 12:04 | disposition home or self-care (01) | LOC: SPT 12:03 | PROVIDERS: PCP Family Medicine; Visit Provider Podiatrist Foot & Ankle Surgery | DX: Z46.89 Encounter for fitting and adjustment of other specified devices (principal); M72.2 Plantar fascial fibromatosis; M21.41 Flat foot [pes planus] (acquired), right foot; M21.42 Flat foot [pes planus] (acquired), left foot | CPT/HCPCS: L3030 ==

== ENCOUNTER 2023-03-21 08:09 | Oncology outpatient (recurring) (ONCR) | payer MEDICARE, OTHER, SELFPAY ==
[2023-03-21 08:30] VITALS: BP 146/91; PULSE 71; RESP 16; TEMP 36; O2SAT 96
[2023-03-21 08:39] LABS: Basophils % 0.4 %; Eosinophils # 0.1 10^3/uL (0.0-0.8); Eosinophils % 1.1 %; Hematocrit 53.4 % (37-53); Lymphocytes # 1.1 10^3/uL (0.8-4.8); Lymphocytes % 15.1 %; Mean Corpuscular Hemoglobin 32.3 pg (27-33); Mean Platelet Volume 9.4 fL (7.4-10.4); Monocytes % 13.9 %; Neutrophils # 4.97 10^3/uL (1.8-7.7); Neutrophils % 68.3 %; Nucleated Red Blood Cells % 0 %; Platelet Count 207 10^3/cmm (157-399); Red Blood Count 5.45 10^6/uL (3.85-5.65); Red Cell Distribution Width 12.3 % (12.1-15.1); White Blood Count 7.28 10^3/uL (3.29-11.43)
== END 2023-04-17 23:59 | disposition home or self-care (01) ==
PROVIDERS: Hospitalist; PCP Family Medicine; Visit Provider Family Medicine
DX: D75.1 Secondary polycythemia
CPT/HCPCS: 36415; 85025

== ENCOUNTER → 2023-03-25 07:52 | Outpatient (BNVA) | payer MEDICARE, OTHER, SELFPAY | PROVIDERS: PCP Family Medicine; Visit Provider Family Medicine | DX: M10.9 Gout, unspecified (principal); K57.92 Diverticulitis of intestine, part unspecified, without perforation or abscess without bleeding; Z79.899 Other long term (current) drug therapy | CPT/HCPCS: 80069; 80197; 85025 ==

== ENCOUNTER 2023-04-24 08:00 | Oncology outpatient (recurring) (ONCR) | payer MEDICARE, OTHER, SELFPAY ==
[2023-04-24 08:25] LABS: Basophils % 0.5 %; Eosinophils # 0.1 10^3/uL (0.0-0.8); Eosinophils % 1.4 %; Hematocrit 50.9 % (37-53); Lymphocytes % 17.5 %; Mean Corpuscular HGB Conc 32.8 g/dL (30-55); Mean Corpuscular Hemoglobin 32.6 pg (27-33); Mean Corpuscular Volume 99.2 fl (82-101); Mean Platelet Volume 9.2 fL (7.4-10.4); Monocytes # 0.9 10^3/uL (0.2-0.9); Monocytes % 15.6 %; Neutrophils # 3.68 10^3/uL (1.8-7.7); Nucleated Red Blood Cells % 0 %; Platelet Count 209 10^3/cmm (157-399); Red Blood Count 5.13 10^6/uL (3.85-5.65); Red Cell Distribution Width 12.5 % (12.1-15.1); White Blood Count 5.76 10^3/uL (3.29-11.43)
== END 2023-05-16 23:59 | disposition home or self-care (01) ==
PROVIDERS: Hospitalist; PCP Family Medicine; Visit Provider Family Medicine
DX: D75.0 Familial erythrocytosis (principal)
CPT/HCPCS: 36415; 85025

== ENCOUNTER → 2023-04-30 08:55 | Outpatient (BNVA) | payer MEDICARE, OTHER, SELFPAY | PROVIDERS: PCP Family Medicine; Visit Provider Family Medicine | DX: Z94.0 Kidney transplant status (principal); K57.92 Diverticulitis of intestine, part unspecified, without perforation or abscess without bleeding | CPT/HCPCS: 80069; 80197; 85025 ==

== ENCOUNTER 2023-05-23 07:47 | Oncology outpatient (recurring) (ONCR) | payer MEDICARE, OTHER, SELFPAY ==
[2023-05-23 08:05] LABS: Basophils % 0.4 %; Eosinophils # 0.1 10^3/uL (0.0-0.8); Eosinophils % 1.1 %; Hematocrit 53.8 % (37-53); Lymphocytes % 13.9 %; Mean Corpuscular HGB Conc 32.9 g/dL (30-55); Mean Corpuscular Hemoglobin 32.5 pg (27-33); Mean Corpuscular Volume 98.9 fl (82-101); Mean Platelet Volume 9.3 fL (7.4-10.4); Monocytes # 1.1 10^3/uL (0.2-0.9); Monocytes % 15.5 %; Neutrophils % 68.2 %; Nucleated Red Blood Cells % 0 %; Platelet Count 216 10^3/cmm (157-399); Red Blood Count 5.44 10^6/uL (3.85-5.65); Red Cell Distribution Width 12.5 % (12.1-15.1); White Blood Count 7.04 10^3/uL (3.29-11.43)
== END 2023-06-16 23:59 | disposition home or self-care (01) ==
PROVIDERS: Hospitalist; PCP Family Medicine; Visit Provider Family Medicine
DX: D75.0 Familial erythrocytosis (principal)
CPT/HCPCS: 36415; 85025

== ENCOUNTER → 2023-06-06 09:07 | Outpatient (BNVA) | payer MEDICARE, OTHER, SELFPAY | PROVIDERS: PCP Family Medicine; Visit Provider Family Medicine | DX: N18.9 Chronic kidney disease, unspecified (principal); K57.92 Diverticulitis of intestine, part unspecified, without perforation or abscess without bleeding; I10 Essential (primary) hypertension | CPT/HCPCS: 80061; 80069; 80076; 80197; 85025 ==

== ENCOUNTER → 2023-07-15 08:57 | Outpatient (BNVA) | payer MEDICARE, OTHER, SELFPAY | PROVIDERS: PCP Family Medicine; Visit Provider Family Medicine | DX: N18.9 Chronic kidney disease, unspecified (principal); K57.92 Diverticulitis of intestine, part unspecified, without perforation or abscess without bleeding; M10.9 Gout, unspecified; H10.9 Unspecified conjunctivitis; B96.89 Other specified bacterial agents as the cause of diseases classified elsewhere | CPT/HCPCS: 80061; 80069; 80076; 85025 ==

== ENCOUNTER 2023-07-16 09:30 | Oncology outpatient (recurring) (ONCR) | payer MEDICARE, OTHER, SELFPAY ==
[2023-06-28 09:20] LABS: Basophils % 0.7 %; Eosinophils % 0.7 %; Hematocrit 51.6 % (37-53); Lymphocytes # 1.4 10^3/uL (0.8-4.8); Lymphocytes % 22.5 %; Mean Corpuscular HGB Conc 32.4 g/dL (30-55); Mean Corpuscular Hemoglobin 32.1 pg (27-33); Mean Platelet Volume 9.7 fL (7.4-10.4); Monocytes # 0.9 10^3/uL (0.2-0.9); Monocytes % 14.7 %; Neutrophils % 59.6 %; Nucleated Red Blood Cells % 0 %; Platelet Count 201 10^3/cmm (157-399); Red Blood Count 5.21 10^6/uL (3.85-5.65); Red Cell Distribution Width 12.4 % (12.1-15.1); White Blood Count 6.04 10^3/uL (3.29-11.43)
[2023-07-16 09:24] VITALS: BP 136/78; PULSE 67; RESP 16; TEMP 36.4; O2SAT 95
[2023-07-16 09:45] VITALS: BP 138/90; PULSE 68; RESP 16; TEMP 36.7; O2SAT 95
== END 2023-07-16 23:59 | disposition home or self-care (01) ==
PROVIDERS: Hospitalist; PCP Family Medicine; Visit Provider Family Medicine
DX: Z53.9 Procedure and treatment not carried out, unspecified reason (principal); D75.1 Secondary polycythemia
CPT/HCPCS: 36415; 80197; 85025; 99195

== ENCOUNTER 2023-08-09 14:35 | Outpatient (CLI) | payer MEDICARE, OTHER, SELFPAY ==
--- NOTE | 2023-08-09 15:00 | USCV_ITS ---
Aman Musa Age: 73 Gender: M : 1950 Exam Date: 08/09/2023 15:20 Ordering Phys: Leigh Linder DO Technologist: PREETI [place] [facility] [place]ication: LLE BURNING X2 DAYS HISTORY: Lower extremity pain. PROCEDURES: Venous duplex imaging was performed in only the left lower extremity. The following venous structures were evaluated: common femoral vein, profunda vein, proximal portion of the greater saphenous vein, superficial femoral vein, and the popliteal vein. In addition, the posterior tibial and peroneal trunk were evaluated. Serial compression, augmentation maneuvers, and spectral Doppler flow evaluation were performed. FINDINGS: Normal 2-D Doppler and augmentation and compressibility throughout the lower extremity venous structures. Additional imaging through the proximal calf veins also reveals no thrombus. Limited evaluation of the greater saphenous vein is patent with no thrombus. CONCLUSIONS No DVT left lower extremity. Dr. Jennifer Pantoja DO (Electronically Signed) Final Date: 09 Aug 2023 15:55 S
== END 2023-08-09 14:36 | disposition home or self-care (01) ==
LOC: RAD 14:35
PROVIDERS: PCP Family Medicine; Visit Provider Emergency Medicine
DX: I82.409 Acute embolism and thrombosis of unspecified deep veins of unspecified lower extremity (principal)
CPT/HCPCS: 93971

== ENCOUNTER → 2023-08-15 08:35 | Outpatient (BNVA) | payer MEDICARE, OTHER, SELFPAY | PROVIDERS: PCP Family Medicine; Visit Provider Family Medicine | DX: K57.92 Diverticulitis of intestine, part unspecified, without perforation or abscess without bleeding (principal); I10 Essential (primary) hypertension; N18.9 Chronic kidney disease, unspecified | CPT/HCPCS: 80061; 80069; 80076; 80197; 85025 ==

== ENCOUNTER → 2023-09-12 08:18 | Outpatient (BNVA) | payer MEDICARE, OTHER, SELFPAY | PROVIDERS: PCP Family Medicine; Visit Provider Family Medicine | DX: Z94.0 Kidney transplant status (principal) | CPT/HCPCS: 80061; 80069; 80076; 80197; 85025 ==

== ENCOUNTER → 2023-10-15 08:32 | Outpatient (BNVA) | payer MEDICARE, OTHER, SELFPAY | PROVIDERS: PCP Family Medicine; Visit Provider Family Medicine | DX: I10 Essential (primary) hypertension (principal); N18.9 Chronic kidney disease, unspecified; Z94.0 Kidney transplant status | CPT/HCPCS: 80061; 80069; 80076; 80197; 85025 ==

== ENCOUNTER → 2023-11-14 08:05 | Outpatient (BNVA) | payer MEDICARE, OTHER, SELFPAY | PROVIDERS: PCP Family Medicine; Visit Provider Family Medicine | DX: Z94.0 Kidney transplant status (principal); I10 Essential (primary) hypertension; N18.9 Chronic kidney disease, unspecified | CPT/HCPCS: 80061; 80069; 80076; 80197; 85025 ==

== ENCOUNTER → 2023-12-12 08:10 | Outpatient (BNVA) | payer MEDICARE, OTHER, SELFPAY | PROVIDERS: PCP Family Medicine; Visit Provider Family Medicine | DX: N18.9 Chronic kidney disease, unspecified (principal); I10 Essential (primary) hypertension; H10.9 Unspecified conjunctivitis; B96.89 Other specified bacterial agents as the cause of diseases classified elsewhere; M10.9 Gout, unspecified; T14.8XXA Other injury of unspecified body region, initial encounter; U07.1 COVID-19; M25.569 Pain in unspecified knee; K57.92 Diverticulitis of intestine, part unspecified, without perforation or abscess without bleeding; X58.XXXA Exposure to other specified factors, initial encounter | CPT/HCPCS: 80061; 80069; 80076; 80197; 85025 ==

== ENCOUNTER → 2024-01-13 08:50 | Outpatient (BNVA) | payer MEDICARE, OTHER, SELFPAY | PROVIDERS: PCP Family Medicine; Visit Provider Nurse Practitioner Family | DX: L82.1 Other seborrheic keratosis (principal); L91.8 Other hypertrophic disorders of the skin; L81.4 Other melanin hyperpigmentation; D18.01 Hemangioma of skin and subcutaneous tissue; L57.8 Other skin changes due to chronic exposure to nonionizing radiation | CPT/HCPCS: 99213 ==

== ENCOUNTER → 2024-01-16 08:19 | Outpatient (BNVA) | payer MEDICARE, OTHER, SELFPAY | PROVIDERS: PCP Family Medicine; Visit Provider Family Medicine | DX: N18.9 Chronic kidney disease, unspecified (principal); I10 Essential (primary) hypertension; K57.92 Diverticulitis of intestine, part unspecified, without perforation or abscess without bleeding | CPT/HCPCS: 80061; 80069; 80076; 80197; 85025 ==

== ENCOUNTER → 2024-02-17 08:10 | Outpatient (BNVA) | payer MEDICARE, OTHER, SELFPAY | PROVIDERS: PCP Family Medicine; Visit Provider Family Medicine | DX: T14.8XXA Other injury of unspecified body region, initial encounter (principal); X58.XXXA Exposure to other specified factors, initial encounter; Z94.0 Kidney transplant status; N18.9 Chronic kidney disease, unspecified; I10 Essential (primary) hypertension | CPT/HCPCS: 80061; 80069; 80076; 80197; 85025 ==

== ENCOUNTER → 2024-03-23 09:09 | Outpatient (BNVA) | payer MEDICARE, OTHER, SELFPAY | PROVIDERS: PCP Family Medicine; Visit Provider Family Medicine | DX: Z94.4 Liver transplant status (principal); N18.9 Chronic kidney disease, unspecified | CPT/HCPCS: 80061; 80069; 80076; 80197; 85025 ==

== ENCOUNTER → 2024-04-23 07:54 | Outpatient (BNVA) | payer MEDICARE, OTHER, SELFPAY | PROVIDERS: PCP Family Medicine; Visit Provider Family Medicine | DX: N18.9 Chronic kidney disease, unspecified (principal); I10 Essential (primary) hypertension; Z94.0 Kidney transplant status | CPT/HCPCS: 80061; 80069; 80076; 80197; 85025 ==

== ENCOUNTER → 2024-05-26 08:10 | Outpatient (BNVA) | payer MEDICARE, OTHER, SELFPAY | PROVIDERS: PCP Family Medicine; Visit Provider Family Medicine | DX: E78.5 Hyperlipidemia, unspecified (principal); Z94.0 Kidney transplant status; U07.1 COVID-19 | CPT/HCPCS: 80061; 80069; 80197; 85025 ==

== ENCOUNTER → 2024-06-22 07:42 | Outpatient (BNVA) | payer MEDICARE, OTHER, SELFPAY | PROVIDERS: PCP Family Medicine; Visit Provider Family Medicine | DX: N18.9 Chronic kidney disease, unspecified (principal); I10 Essential (primary) hypertension; Z94.4 Liver transplant status | CPT/HCPCS: 80061; 80069; 80076; 80197; 85025 ==

== ENCOUNTER → 2024-07-24 07:49 | Outpatient (BNVA) | payer MEDICARE, OTHER, SELFPAY | PROVIDERS: PCP Family Medicine; Visit Provider Family Medicine | DX: N18.9 Chronic kidney disease, unspecified (principal) | CPT/HCPCS: 80061; 80069; 80076; 80197; 85025 ==

== ENCOUNTER → 2024-08-18 07:45 | Outpatient (BNVA) | payer MEDICARE, OTHER, SELFPAY | PROVIDERS: PCP Family Medicine; Visit Provider Family Medicine | DX: N18.9 Chronic kidney disease, unspecified (principal); Z94.4 Liver transplant status | CPT/HCPCS: 80069; 80076; 80197; 85025 ==

== ENCOUNTER → 2024-09-16 09:21 | Outpatient (BNVA) | payer MEDICARE, OTHER, SELFPAY | PROVIDERS: PCP Family Medicine; Visit Provider Family Medicine | DX: N18.9 Chronic kidney disease, unspecified (principal); I10 Essential (primary) hypertension; M25.569 Pain in unspecified knee; K57.92 Diverticulitis of intestine, part unspecified, without perforation or abscess without bleeding; Z94.4 Liver transplant status | CPT/HCPCS: 80061; 80069; 80076; 80197; 85025 ==

== ENCOUNTER → 2024-10-21 08:31 | Outpatient (BNVA) | payer MEDICARE, OTHER, SELFPAY | PROVIDERS: PCP Family Medicine; Visit Provider Family Medicine | DX: I10 Essential (primary) hypertension (principal); N18.9 Chronic kidney disease, unspecified; K57.92 Diverticulitis of intestine, part unspecified, without perforation or abscess without bleeding | CPT/HCPCS: 80061; 80069; 80076; 80197; 85025 ==

== ENCOUNTER → 2024-11-18 08:16 | Outpatient (BNVA) | payer MEDICARE, OTHER, SELFPAY | PROVIDERS: PCP Family Medicine; Visit Provider Family Medicine | DX: N18.9 Chronic kidney disease, unspecified (principal) | CPT/HCPCS: 80061; 80069; 80076; 80197; 85025 ==

== ENCOUNTER → 2024-12-15 08:42 | Outpatient (BNVA) | payer MEDICARE, OTHER, SELFPAY | PROVIDERS: PCP Family Medicine; Visit Provider Family Medicine | DX: U07.1 COVID-19 (principal) | CPT/HCPCS: 84439; 84443 ==

== ENCOUNTER → 2024-12-23 08:45 | Outpatient (BNVA) | payer MEDICARE, OTHER, SELFPAY | PROVIDERS: PCP Family Medicine; Visit Provider Family Medicine | DX: Z94.0 Kidney transplant status (principal); I12.0 Hypertensive chronic kidney disease with stage 5 chronic kidney disease or end stage renal disease; N18.6 End stage renal disease | CPT/HCPCS: 80061; 80069; 80076; 80197; 85025 ==

== ENCOUNTER → 2025-01-07 11:34 | Outpatient (BNVA) | payer MEDICARE, OTHER, SELFPAY | PROVIDERS: PCP Family Medicine; Visit Provider Family Medicine | DX: E03.9 Hypothyroidism, unspecified (principal); U07.1 COVID-19 | CPT/HCPCS: 84439; 84443 ==

== ENCOUNTER → 2025-01-15 08:23 | Outpatient (BNVA) | payer MEDICARE, OTHER, SELFPAY | PROVIDERS: PCP Family Medicine; Visit Provider Family Medicine | DX: E04.1 Nontoxic single thyroid nodule (principal); E78.00 Pure hypercholesterolemia, unspecified | CPT/HCPCS: 80053; 80061; 84439; 84443; 84481; 86376 ==

== ENCOUNTER → 2025-03-03 08:48 | Outpatient (BNVA) | payer MEDICARE, OTHER, SELFPAY | PROVIDERS: PCP Family Medicine; Visit Provider Family Medicine | DX: Z94.0 Kidney transplant status (principal) | CPT/HCPCS: 80061; 80069; 80076; 80197; 85025 ==